=== PATIENT | male | born 1935 ===

== ENCOUNTER 2016-08-27 05:49 | Emergency (ER) | payer MEDICARE, OTHER ==
[2016-08-27 06:03] VITALS: BP 123/64; PULSE 64; RESP 16; TEMP 99; O2SAT 98
[2016-08-27] MEDS ORDERED: TDAP Vaccine 0.5 mL Syr IM ONE (06:05)
--- NOTE | 2016-08-27 06:29 | ED PDOC ---
HPI: Trauma/Fall - HPI Time Seen by Provider: 08/27/16 05:59 Chief Complaint (Nursing): Trauma Chief Complaint (Provider): Fall History Per: Patient History/Exam Limitations: clinical condition (Dementia) Injury Occurred (Timing): Just Before Arrival Location Of Injury: Anterior: Head (left side) Associated Symptoms: denies: LOC Additional History Per: Family () Additional Complaint(s): 81 year old male brought in by EMS presents to ED due to a witnessed fall and has a past medical history of a CVA with residual weakness, DM, dementia, and HTN. Fall was witnessed by , who is the main historian. states that patient was attempting to sit in bed when he missed and fell to his left side. Notes that the patient hit the left side of his forehead against the floor. (-) LOC. Patient denies all medical complaints. PCP: LENARD - Fall Fall:Prior To Injury: Slipped Past Medical History Reviewed: Historical Data, Nursing Documentation, Vital Signs Vital Signs: Last Vital Signs Temp 99.0 F 08/27/16 06:00 Pulse 64 08/27/16 06:00 Resp 16 08/27/16 06:00 BP 123/64 08/27/16 06:00 Pulse Ox 98 08/27/16 07:00 - Medical History PMH: Alzheimer's Disease, Arthritis, Asthma, CAD, CVA, Dementia, Depression (Pt on Paxil), Diabetes, HTN, Hypercholesterolemia, Peripheral Edema Denies: HIV, Chronic Kidney Disease - Surgical History Surgical History: Denies: No Surg Hx Other surgeries: Cateract surgery, shoulder surgery, prostate surgery - Family History Family History: States: No Known Family Hx - Living Arrangements Living Arrangements: With Family - Social History Current smoker - smoking cessation education provided: No Ex-Smoker (has not smoked in the last 12 months): Yes Alcohol: None Drugs: Denies - Home Medications Home Medications: Ambulatory Orders Medication Instructions Recorded Atorvastatin [Lipitor] 40 mg PO HS #0 tab 10/24/13 Clopidogrel [Plavix] 75 mg PO DAILY #0 tab 10/24/13 Fenofibrate [Tricor] 145 mg PO HS #0 tab 10/24/13 Metoprolol Tartrate [Lopressor] 25 mg PO Q12 #0 tab 10/24/13 PARoxetine [Paxil] 20 mg PO HS #0 tab 10/24/13 Pantoprazole [Protonix EC Tab] 40 mg PO DAILY #0 ect 10/24/13 Rivastigmine 4.6 mg/24 hr [Exelon 1 patch TD DAILY #0 patch 10/24/13 4.6 mg/24 hr Patch] amLODIPine [Norvasc] 10 mg PO DAILY #0 tab 10/24/13 metFORMIN [glucOPHAGE] 500 mg PO DAILY #0 tab 10/24/13 risperiDONE [RisperDAL Tab] 0.25 mg PO Q12@0900,2100 #0 tab 10/24/13 Acetaminophen [Tylenol] 650 mg PO QID PRN #0 tab 12/15/13 Clindamycin [Cleocin] 300 mg PO QID #21 cap 12/15/13 - Allergies Allergies/Adverse Reactions: Allergies Allergy/AdvReac Type Severity Reaction Status Date / Time Penicillins Allergy RASH Verified 09/01/15 12:17 Review of Systems ROS Statement: Except As Marked, All Systems Reviewed And Found Negative ( Patient denies all medical complaints) Musculoskeletal: Positive for: Other (Head abrasion) Neurological: Negative for: Other ((-) LOC) Physical Exam - Reviewed Nursing Documentation Reviewed: Yes Vital Signs Reviewed: Yes - Physical Exam Appears: Positive for: Non-toxic, No Acute Distress Head Exam: Positive for: NORMOCEPHALIC. Negative for: ATRAUMATIC (Abrasion to left side of forehead with mild ecchymosis above left eye) Skin: Positive for: Normal Color, Warm, Dry Eye Exam: Positive for: Normal appearance, EOMI, PERRL Neck: Positive for: Normal, Painless ROM, Supple Cardiovascular/Chest: Positive for: Regular Rate, Rhythm. Negative for: Murmur Respiratory: Positive for: Normal Breath Sounds. Negative for: Respiratory Distress Gastrointestinal/Abdominal: Positive for: Normal Exam, Soft. Negative for: Tenderness Back: Positive for: Normal Inspection Extremity: Positive for: Normal ROM. Negative for: Deformity Neurologic/Psych: Positive for: Alert, Oriented, Other (Residual, generalized weakness). Negative for: Motor/Sensory Deficits (no focal deficits) - ECG O2 Sat by Pulse Oximetry: 98 (RA) Pulse Ox Interpretation: Normal Medical Decision Making Medical Decision Makin Initial impression: head injury in setting of fall Initial plan: * CT HEAD * Accucheck 0649 CT FINDINGS Brain: Moderate atrophy. No intracranial hemorrhage. No mass. Multiple scattered foci of decreased attenuation within periventricular/subcortical white matter. Chronic lacunar infarcts within basal ganglia/deep white matter. No edema. Ventricles: No hydrocephalus. Bones/joints: No acute fracture. Degenerative changes of temporomandibular joints. Soft tissues: LEFT frontal soft tissue swelling. Vasculature: Atherosclerotic disease of intracranial arteries. Sinuses: No acute sinusitis. Mastoid air cells: No mastoid effusion. Orbits: Unremarkable as visualized. IMPRESSION: 1. No intracranial hemorrhage. 2. Nonspecific white matter changes. 3. Incidental/non-acute findings are described above. 0700 Patient is stable for discharge home with . Counseling has been provided and patient is in agreement. Return if symptoms persist or acutely worsen. Scribe Attestation: Documented by Agata Bess acting as a scribe for Roddy Edward MD. Scribe Attestation: All medical record entries made by the Scribe were at my direction and personally dictated by me. I have reviewed the chart and agree that the record accurately reflects my personal performance of the history, physical exam, medical decision making, and the department course for this patient. I have also personally directed, reviewed, and agree with the discharge instructions and disposition. Disposition - Clinical Impression Clinical Impression: Head injury - Patient ED Disposition Is Patient to be Admitted: No Counseled Patient/Family Regarding: Studies Performed, Diagnosis - Disposition Referrals: Isaac Benz MD [Primary Care Provider] - Disposition: Routine/Home Disposition Time: 07:00 Condition: STABLE Instructions: Head Injury (ED) Print Language: PORTUGUESE - POA Present On Arrival: None
--- NOTE | 2016-08-27 06:50 | CT ---
EXAM: CT Head Without Intravenous Contrast CLINICAL HISTORY: 81 years old, male; Injury or trauma; Fall; Initial encounter; Blunt trauma (contusions or hematomas); Additional info: Head injury TECHNIQUE: Axial computed tomography images of the head/brain without intravenous contrast. This CT exam was performed using one or more of the following dose reduction techniques: automated exposure control, adjustment of the mA and/or kV according to patient size, and/or use of iterative reconstruction technique. Coronal and sagittal reformatted images were created and reviewed. COMPARISON: CT - HEAD W/O CONTRAST 09/01/2015 1:57:57 PM FINDINGS: Brain: Moderate atrophy. No intracranial hemorrhage. No mass. Multiple scattered foci of decreased attenuation within periventricular/subcortical white matter. Chronic lacunar infarcts within basal ganglia/deep white matter. No edema. Ventricles: No hydrocephalus. Bones/joints: No acute fracture. Degenerative changes of temporomandibular joints. Soft tissues: LEFT frontal soft tissue swelling. Vasculature: Atherosclerotic disease of intracranial arteries. Sinuses: No acute sinusitis. Mastoid air cells: No mastoid effusion. Orbits: Unremarkable as visualized. IMPRESSION: 1. No intracranial hemorrhage. 2. Nonspecific white matter changes. 3. Incidental/non-acute findings are described above.
== END 2016-08-27 09:35 | disposition home or self-care (01) ==
LOC: H.ER 05:49
DX: S09.90XA Unspecified injury of head, initial encounter (principal); W19.XXXA Unspecified fall, initial encounter; Y92.003 Bedroom of unspecified non-institutional (private) residence as the place of occurrence of the external cause; E11.9 Type 2 diabetes mellitus without complications; E78.00 Pure hypercholesterolemia, unspecified; F02.80 Dementia in other diseases classified elsewhere, unspecified severity, without behavioral disturbance, psychotic disturbance, mood disturbance, and anxiety; F32.9 Major depressive disorder, single episode, unspecified; G30.9 Alzheimer's disease, unspecified; I10 Essential (primary) hypertension; I25.10 Atherosclerotic heart disease of native coronary artery without angina pectoris; Z79.84 Long term (current) use of oral hypoglycemic drugs; Z86.73 Personal history of transient ischemic attack (TIA), and cerebral infarction without residual deficits; Z88.0 Allergy status to penicillin

== ENCOUNTER 2016-11-30 11:15 | Inpatient (IN) | payer MEDICARE, OTHER ==
[2016-11-30 12:01] VITALS: BMI 30.6
--- NOTE | 2016-11-30 12:55 | ED PDOC ---
HPI: General Adult <AlizerobertAlejandro F - Last Filed: 11/30/16 13:54> History Per: Patient <Tiburcio Daniels - Last Filed: 11/30/16 17:11> Time Seen by Provider: 11/30/16 11:35 Chief Complaint (Nursing): Cough, Cold, Congestion Additional Complaint(s): Pt. presents to ED with at beside. States that for the past 2 days pt. has had cough productive of thick yellow sputum. States that pt. has also been c/o b /l chest pain that is present only with coughing and does not have pain at rest or while ambulating. Denies fever, hemoptysis, ELIZABETH, leg pain, leg swelling, palpitations. (Tiburcio Daniels) Past Medical History <AlizerobertAlejandro Matute - Last Filed: 11/30/16 13:54> Reviewed: Historical Data, Nursing Documentation, Vital Signs - Medical History PMH: Alzheimer's Disease, Arthritis, Asthma, CAD, CVA, Dementia, Depression (Pt on Paxil), Diabetes, HTN, Hypercholesterolemia, Peripheral Edema Denies: HIV, Chronic Kidney Disease - Family History Family History: States: No Known Family Hx <Tiburcio Daniels - Last Filed: 11/30/16 17:11> Vital Signs: Last Vital Signs Temp 97 F L 11/30/16 11:50 Pulse 60 11/30/16 13:57 Resp 18 11/30/16 11:50 BP 121/69 11/30/16 11:50 Pulse Ox 99 11/30/16 13:57 - Home Medications Home Medications: Ambulatory Orders Medication Instructions Recorded Atorvastatin [Lipitor] 40 mg PO HS #0 tab 10/24/13 Clopidogrel [Plavix] 75 mg PO DAILY #0 tab 10/24/13 Fenofibrate [Tricor] 145 mg PO HS #0 tab 10/24/13 Metoprolol Tartrate [Lopressor] 25 mg PO Q12 #0 tab 10/24/13 PARoxetine [Paxil] 20 mg PO HS #0 tab 10/24/13 Pantoprazole [Protonix EC Tab] 40 mg PO DAILY #0 ect 10/24/13 Rivastigmine 4.6 mg/24 hr [Exelon 1 patch TD DAILY #0 patch 10/24/13 4.6 mg/24 hr Patch] metFORMIN [glucOPHAGE] 500 mg PO DAILY #0 tab 10/24/13 risperiDONE [RisperDAL Tab] 0.25 mg PO Q12@0900,2100 #0 tab 10/24/13 Acetaminophen [Tylenol] 650 mg PO QID PRN #0 tab 12/15/13 Clindamycin [Cleocin] 300 mg PO QID #21 cap 12/15/13 amLODIPine [Norvasc] 5 mg PO DAILY 11/30/16 - Allergies Allergies/Adverse Reactions: Allergies Allergy/AdvReac Type Severity Reaction Status Date / Time Penicillins Allergy RASH Verified 09/01/15 12:17 Review of Systems ROS Statement: Except As Marked, All Systems Reviewed And Found Negative Respiratory: Positive for: Cough, Sputum (yellow) <Tiburcio Daniels E - Last Filed: 11/30/16 17:11> Physical Exam - Reviewed Nursing Documentation Reviewed: Yes Vital Signs Reviewed: Yes - Physical Exam Appears: Positive for: Well, Non-toxic, No Acute Distress Head Exam: Positive for: ATRAUMATIC, NORMAL INSPECTION, NORMOCEPHALIC Skin: Positive for: Normal Color, Warm. Negative for: Rash Eye Exam: Positive for: EOMI, Normal appearance, PERRL ENT: Positive for: Normal ENT Inspection Neck: Positive for: Normal, Painless ROM Cardiovascular/Chest: Positive for: Regular Rate, Rhythm Respiratory: Positive for: Rales (R mid-lung field). Negative for: Decreased Breath Sounds, Accessory Muscle Use, Stridor, Respiratory Distress, Plerual Rub Gastrointestinal/Abdominal: Positive for: Normal Exam, Bowel Sounds, Soft. Negative for: Tenderness Back: Positive for: Normal Inspection Extremity: Positive for: Normal ROM Neurologic/Psych: Positive for: Alert, Oriented <Tiburcio Daniels E - Last Filed: 11/30/16 17:11> - Laboratory Results Result Diagrams: 11/30/16 13:17 11/30/16 13:17 <Alejandro Lux F - Last Filed: 11/30/16 13:54> - Laboratory Results Result Diagrams: 11/30/16 13:17 11/30/16 13:17 - ECG ECG: Positive for: Interpreted By Me ECG Rhythm: Positive for: Sinus Rhythm. Negative for: ST/T Changes Rate: 60 O2 Sat by Pulse Oximetry: 99 - Radiology X-Ray: Interpreted by Me (CXR) <Tiburcio Daniels - Last Filed: 11/30/16 17:11> - Progress ED Course And Treament: Labs ordered. VBG ordered. CXR ordered. CXR: RLL infiltrate as read by PA and confirmed by radiologist. Levaquin 500mg IV ordered. Case d/w Dr. Lux and agrees that pt. requires inpatient treatment. Case d/w Dr. Martinez, hospitalist (pt.'s PMD is Dr. Benz), and arrangements made for admission. (Tiburcio Daniels) Disposition <Alejandro Lux - Last Filed: 11/30/16 13:54> - Patient ED Disposition Is Patient to be Admitted: Yes - Disposition Disposition Time: 14:15 <Tiburcio Daniels - Last Filed: 11/30/16 17:11> - Clinical Impression Clinical Impression: Pneumonia - Disposition Condition: STABLE Curb-65 Severity Score - CURB-65 Severity Score Confusion: Yes Bun >19mg/dl (>7mmol/L): No Respiratory Rate greater than/equal to 30: No Systolic BP <90 or Diastolic BP less than/equal 60mmHg: No Age >64: Yes Curb-65 Score: 2 Percentage 30-day mortality: 6.8% <Tiburcio Daniels - Last Filed: 11/30/16 17:11>
--- NOTE | 2016-11-30 13:06 | RAD ---
HISTORY: Cough COMPARISON: 10/21/2013 TECHNIQUE: Chest PA and lateral FINDINGS: LUNGS: Right lower lobe infiltrate PLEURA: No significant pleural effusion identified. No pneumothorax apparent. CARDIOVASCULAR: Cardiomegaly. No evidence of acute, significant cardiovascular disease. OSSEOUS STRUCTURES: No significant abnormalities. VISUALIZED UPPER ABDOMEN: Normal. OTHER FINDINGS: None. IMPRESSION: Infiltrate confined to the right lower lobe. Please note: No preliminary report/ innterpretation of this examination provided by emergency department personnel.
[2016-11-30 13:27] LABS: BASO # 0.1 K/uL (0.0-0.2); BASO % 0.8 % (0.0-2.0); EOS # 0.2 K/uL (0.0-0.7); EOS % 2.7 % (0.0-4.0); LYMPH # 1.6 K/uL (1.0-4.3); LYMPH % 17.2 % (20.0-40.0); MEAN CELL VOLUME 74.2 fl (80.0-94.0); MEAN CORPUSCULAR HEMOGLOBIN 24.2 pg (27.0-31.0); MEAN CORPUSCULAR HGB CONC 32.6 g/dL (33.0-37.0); MONO # 0.8 K/uL (0.0-0.8); MONO % 9.2 % (0.0-10.0); NEUT # 6.3 K/uL (1.8-7.0); NEUT % 70.1 % (50.0-75.0); RED CELL DISTRIBUTION WIDTH 17.4 % (11.5-14.5)
[2016-11-30 13:30] LABS: VENOUS BLOOD GAS BASE EXCESS 7.3 mmol/L (0.0-2.0); VENOUS BLOOD GAS PCO2 58 mmHg (40-60); VENOUS BLOOD PH 7.38 (7.32-7.43)
[2016-11-30 13:37] LABS: ALB/GLOB RATIO 0.9 (1.0-2.1); ALKALINE PHOSPHATASE 120 U/L (38-126); ALT/SGPT 14 U/L (21-72); AST/SGOT 15 U/L (17-59); BILIRUBIN,TOTAL 0.3 mg/dl (0.2-1.3); BLOOD UREA NITROGEN 14 mg/dl (9-20); CALCIUM 9.4 mg/dL (8.4-10.2); CARBON DIOXIDE 28 mmol/L (22-30); CHLORIDE 104 mmol/L (98-107); GFR AFRICAN-AMERICAN > 60; GLUCOSE,RANDOM 79 mg/dL (75-110); POTASSIUM 4.3 MMOL/L (3.6-5.0); SODIUM 145 mmol/l (132-148); TOTAL PROTEIN 7.2 G/DL (6.3-8.2)
[2016-11-30] MEDS ORDERED: levoFLOXacin 500 mg in D5W 500 MG/100 ML BAG IVPB STA (13:56)
[2016-11-30] MEDS ORDERED: levoFLOXacin 500 mg in D5W 500 MG/100 ML BAG IVPB ONE (14:20)
[2016-11-30] MEDS ORDERED: Sodium Chloride 3% for Inhalation 4 ML VIAL.NEB IH PRN (15:46)
[2016-11-30] MEDS ORDERED: guaiFENesin 200 mg/10 ml Syrup UD PO PRN (15:58)
[2016-11-30] MEDS ORDERED: Clindamycin 600 MG in Sodium Chloride 0.9% 100 ML IVPB SCH ×2 (16:00→16:30)
--- NOTE | 2016-11-30 16:10 | CP.PCM.HP ---
History of Present Illness - History of Present Illness History of Present Illness: CC: Cough This is a 81 year old male with a past medical history significant for CVA with residual left sided weakness, hypertension, hyperlipidemia, Type 2 Diabetes mellitus, Alzheimer's dementia, CAD, Depression, Athritis, who presents to the ED with the complaint of 2 days of productive cough with thick yellow sputum. He has pleuritic pain which is only present while coughing. He denies any symptoms of fever, chills, weakness, or fatigue. He has been having increased mucus production. The family relates that he has over the last 2 years had difficulty eating and is often coughing and choking on his food. In the ED, the patient had a chest X ray showing right lower lobe pneumonia. His vitals are stable and he is saturating oxygen well. He was given Levaquin. Given his age, with CURB-65 score of 2, he will be placed on observation overnight for IV antibiotics for aspiration pneumonia, and monitoring. Present on Admission - Present on Admission Any Indicators Present on Admission: No Review of Systems - Hematologic/Lymphatic Additional comments: REVIEW OF SYSTEMS: CONSTITUTIONAL: No weight loss, fever, chills, weakness or fatigue. HEENT: Eyes: No visual loss, blurred vision, double vision or yellow sclerae. Ears, Nose, Throat: No hearing loss, sneezing, congestion, runny nose or sore throat. SKIN: No rash or itching. CARDIOVASCULAR: No chest pain, chest pressure or chest discomfort. No palpitations or edema. RESPIRATORY: Admits to cough and congestion with increased sputum production. Denies SOB GASTROINTESTINAL: No anorexia, nausea, vomiting or diarrhea. No abdominal pain or blood. GENITOURINARY: no frequency, dysuria, cloudy urine NEUROLOGICAL: No headache, dizziness, syncope, paralysis, ataxia, numbness or tingling in the extremities. No change in bowel or bladder control. MUSCULOSKELETAL: No muscle, back pain, joint pain or stiffness. HEMATOLOGIC: No anemia, bleeding or bruising. LYMPHATICS: No enlarged nodes. No history of splenectomy. PSYCHIATRIC: No history of depression or anxiety. ENDOCRINOLOGIC: No reports of sweating, cold or heat intolerance. No polyuria or polydipsia. ALLERGIES: No history of asthma, hives, eczema or rhinitis. Past Patient History - Infectious Disease Hx of Infectious Diseases: None - Past Medical History & Family History Past Medical History?: Yes - Past Social History Smoking Status: Former Smoker - CARDIAC Hx Hypercholesterolemia: Yes Hx Hypertension: Yes Hx Peripheral Edema: Yes - PULMONARY Hx Asthma: Yes - NEUROLOGICAL Hx Alzheimer's Disease: Yes Hx Dementia: Yes - HEENT Hx HEENT Problems: No - RENAL Hx Chronic Kidney Disease: No - ENDOCRINE/METABOLIC Hx Diabetes Mellitus Type 2: Yes - HEMATOLOGICAL/ONCOLOGICAL Hx Human Immunodeficiency Virus (HIV): No - INTEGUMENTARY Hx Dermatological Problems: No - MUSCULOSKELETAL/RHEUMATOLOGICAL Hx Arthritis: Yes - GASTROINTESTINAL Hx Gastrointestinal Disorders: No - GENITOURINARY/GYNECOLOGICAL Hx Genitourinary Disorders: No Hx Prostate Problems: Yes - PSYCHIATRIC Hx Depression: Yes (Pt on Paxil) - SURGICAL HISTORY Hx Cataract Extraction: Yes (bilateral eyes) Hx Orthopedic Surgery: Yes (Right shoulder 10 years ago) Other/Comment: Prostate Surgery 2008, Gland sx behind right ear - ANESTHESIA Hx Anesthesia: Yes Hx Anesthesia Reactions: No Meds Allergies/Adverse Reactions: Allergies Allergy/AdvReac Type Severity Reaction Status Date / Time Penicillins Allergy RASH Verified 09/01/15 12:17 Physical Exam - Additional Findings Additional findings: PHYSICAL EXAMINATION: GENERAL: The patient is alert but demented. Appears comfortable. in no respiratory distress on room air. HEENT: Normocephalic, atraumatic. Extraocular movements intact. No sinus tenderness. Oropharynx clear. Mucous membranes are moist. no scleral icterus NECK: Supple without lymph node. CHEST: CTA bilaterally, mild bilateral wheezing, rales on the right, scattered rhonchi HEART: S1, S2. regular rate and rhythm ABDOMEN: Soft, nontender, nondistended No organomegaly. EXTREMITIES: No cyanosis, clubbing or edema. NEUROLOGIC: No focal deficit. No sensory deficit. PSYCHOSOCIAL: No signs of depression and is nonfocal. INTEGUMENT: Moist mucous membranes. Good skin turgor, intact Results - Vital Signs Recent Vital Signs: Last Vital Signs Temp 97 F L 11/30/16 11:50 Pulse 60 11/30/16 13:57 Resp 18 11/30/16 11:50 BP 121/69 11/30/16 11:50 Pulse Ox 99 11/30/16 13:57 - Labs Result Diagrams: 11/30/16 13:17 11/30/16 13:17 Labs: Laboratory Results - last 24 hr 11/30/16 11/30/16 11/30/16 01:18 13:15 13:17 WBC 9.0 RBC 4.85 Hgb 11.7 L Hct 36.0 MCV 74.2 L MCH 24.2 L MCHC 32.6 L RDW 17.4 H Plt Count 249 MPV 9.0 Neut % (Auto) 70.1 Lymph % (Auto) 17.2 L [place] % (Auto) 9.2 Eos % (Auto) 2.7 Baso % (Auto) 0.8 Neut # 6.3 Lymph # 1.6 [place] # 0.8 Eos # 0.2 Baso # 0.1 pO2 25 L VBG pH 7.38 VBG pCO2 58 VBG HCO3 29.2 VBG Total CO2 36.1 H VBG O2 Sat (Calc) 52.2 VBG Base Excess 7.3 H VBG Potassium 4.4 Sodium 141.0 Chloride 104.0 Glucose 81 Lactate 1.1 FiO2 21.0 Potassium Carbon Dioxide Anion Gap BUN Creatinine Est GFR ( Amer) Est GFR (Non-Af Amer) Random Glucose Calcium Total Bilirubin AST ALT Alkaline Phosphatase Troponin I Total Protein Albumin Globulin Albumin/Globulin Ratio Venous Blood Potassium 4.4 Influenza Typ A,B (EIA) Negative for flu a/b 11/30/16 13:17 WBC RBC Hgb Hct MCV MCH MCHC RDW Plt Count MPV Neut % (Auto) Lymph % (Auto) [place] % (Auto) Eos % (Auto) Baso % (Auto) Neut # Lymph # [place] # Eos # Baso # pO2 VBG pH VBG pCO2 VBG HCO3 VBG Total CO2 VBG O2 Sat (Calc) VBG Base Excess VBG Potassium Sodium 145 Chloride 104 Glucose Lactate FiO2 Potassium 4.3 Carbon Dioxide 28 Anion Gap 17 BUN 14 Creatinine 0.7 L Est GFR ( Amer) > 60 Est GFR (Non-Af Amer) > 60 Random Glucose 79 Calcium 9.4 Total Bilirubin 0.3 AST 15 L ALT 14 L D Alkaline Phosphatase 120 Troponin I < 0.0120 Total Protein 7.2 Albumin 3.5 Globulin 3.7 Albumin/Globulin Ratio 0.9 L Venous Blood Potassium Influenza Typ A,B (EIA) Assessment & Plan - Assessment and Plan (Free Text) Plan: ASSESSMENT - Right lower lobe pneumonia, hx of choking while swallowing food--> concern for aspiration pneumonia vs pneumonitis - Hx CAD - Type 2 DM - Hypertension - Hypercholesterolemia - Alzheimer's dementia with hx of - Hx CVA with residual left sided weakness PLAN - Observation on med/surg - Monitor vitals, respriatory status overnight - Start Clindamycin for aspiration pneumonia- patient is allergic to penicillins. Start lactobacillus to protect the gut vitaly - Robitussin PRN - Continue Norvasc and Lopressor - Continue Lipitor, Tricor for hypercholesterolemia - Continue Risperidone and Rivastigmine, along with Ativan 5 mg PO HS, for Alzheimer's disease with hx of - Protonix 40 mg po daily - DVT prophylaxis with SCDs as patient is at high risk for falls - Estimated LOS < 2 midnights
[2016-11-30] MEDS: Lactobacillus Acidophilus 500 MU Cap PO SCH (18:42)
[2016-12-01] MEDS: Albuterol-Ipratrop 3 mg / 0.5 (3 ml) UD INH SCH ×6 (00:08→19:28)
[2016-12-01] MEDS: Clindamycin 600 MG in Sodium Chloride 0.9% 100 ML IVPB SCH ×3 (00:55→16:35)
[2016-12-01 06:37] LABS: BASO % 0.3 % (0.0-2.0); EOS # 0.2 K/uL (0.0-0.7); EOS % 2.9 % (0.0-4.0); HEMATOCRIT 34.7 % (35.0-51.0); LYMPH # 1.4 K/uL (1.0-4.3); LYMPH % 17.5 % (20.0-40.0); MEAN CELL VOLUME 74.2 fl (80.0-94.0); MEAN CORPUSCULAR HEMOGLOBIN 23.8 pg (27.0-31.0); MEAN PLATELET VOLUME 9.1 fl (7.2-11.7); MONO # 0.8 K/uL (0.0-0.8); MONO % 9.6 % (0.0-10.0); NEUT # 5.7 K/uL (1.8-7.0); NEUT % 69.7 % (50.0-75.0); NRBC % 0.1 % (0.0-0.0); RED CELL DISTRIBUTION WIDTH 16.9 % (11.5-14.5); WHITE BLOOD COUNT 8.1 K/uL (4.8-10.8)
[2016-12-01 06:41] LABS: BLOOD UREA NITROGEN 16 mg/dl (9-20); CARBON DIOXIDE 31 mmol/L (22-30); CHLORIDE 105 mmol/L (98-107); GFR AFRICAN-AMERICAN > 60; GLUCOSE,RANDOM 105 mg/dL (75-110); POTASSIUM 4.2 MMOL/L (3.6-5.0); SODIUM 143 mmol/l (132-148)
[2016-12-01] MEDS ORDERED: Sodium Chloride 3% for Inhalation 4 ML VIAL.NEB IH PRN (08:39)
[2016-12-01] MEDS: Lactobacillus Acidophilus 500 MU Cap PO SCH ×2 (09:15→16:36)
[2016-12-01] MEDS: Pantoprazole 40 mg EC Tab PO SCH (09:16)
[2016-12-01] MEDS: levoFLOXacin 500 mg in D5W 500 MG/100 ML BAG IVPB SCH (10:41)
--- NOTE | 2016-12-01 12:47 | CARD ---
APPROVED REPORT EKG Measurement Heart [id number] <Conclusion> Normal sinus rhythm Left axis deviation Right bundle branch block Abnormal ECG
--- NOTE | 2016-12-01 12:56 | CP.PCM.PN ---
Subjective - Date & Time of Evaluation Date of Evaluation: 12/01/16 Time of Evaluation: 11:30 - Subjective Subjective: Pt is febrile still with cough, productive denies CP no SOB no abd pain Discussed diagnosis and treatment paln with pt and his who was at bedside Full Code Surrogate Decision maker - spouse Hannah Objective - Vital Signs/Intake and Output Vital Signs (last 24 hours): Temp Pulse Resp BP Pulse Ox 97.9 F 85 95 H 117/74 17 L 12/01/16 08:23 12/01/16 09:16 12/01/16 08:23 12/01/16 09:16 12/01/16 08:23 - Medications Medications: Current Medications Acetaminophen (Tylenol 325mg Tab) 650 mg PO QID PRN PRN Reason: pain Albuterol/Ipratropium (Duoneb 3 Mg/0.5 Mg (3 Ml) Ud) 3 ml INH RQ4 [facility] Last Admin: 12/01/16 11:03 Dose: 3 ml Amlodipine Besylate (Norvasc) 5 mg PO DAILY [facility] Last Admin: 12/01/16 09:18 Dose: 5 mg Atorvastatin Calcium (Lipitor) 40 mg PO HS [facility] Last Admin: 11/30/16 21:41 Dose: 40 mg Clopidogrel Bisulfate (Plavix) 75 mg PO DAILY [facility] Last Admin: 12/01/16 09:16 Dose: 75 mg Fenofibrate (Tricor) 145 mg PO HS [facility] Last Admin: 11/30/16 21:41 Dose: 145 mg Guaifenesin (Robitussin) 200 mg PO Q6 PRN PRN Reason: Cough Clindamycin Phosphate 600 mg/ (Sodium Chloride) 104 mls @ 104 mls/hr IVPB Q8H [facility] PRN Reason: Protocol Last Admin: 12/01/16 09:15 Dose: 104 mls/hr Levofloxacin/Dextrose (Levaquin 500mg) 500 mg in 100 mls @ 100 mls/hr IVPB DAILY [facility] Last Admin: 12/01/16 10:41 Dose: 100 mls/hr Lactobacillus Acidophilus (Bacid Acidophilus) 1 cap PO BID [facility] Last Admin: 11/30/16 18:42 Dose: 1 cap Lorazepam (Ativan) 0.5 mg PO HS [facility] Last Admin: 11/30/16 21:41 Dose: 0.5 mg Metformin HCl (Glucophage) 500 mg PO DAILY [facility] Last Admin: 12/01/16 09:16 Dose: 500 mg Metoprolol Tartrate (Lopressor) 25 mg PO Q12 [facility] Last Admin: 12/01/16 09:16 Dose: 25 mg Pantoprazole Sodium (Protonix Ec Tab) 40 mg PO DAILY [facility] Last Admin: 12/01/16 09:16 Dose: 40 mg Paroxetine HCl (Paxil) 20 mg PO HS [facility] Last Admin: 11/30/16 21:42 Dose: 20 mg Risperidone (Risperdal Tab) 0.25 mg PO Q12@0900,2100 [facility] Last Admin: 12/01/16 09:18 Dose: 0.25 mg Rivastigmine (Exelon 4.6 Mg/24 Hr Patch) 1 patch TD DAILY [facility] Last Admin: 12/01/16 09:16 Dose: 1 patch - Labs Labs: 12/01/16 05:15 12/01/16 05:15 - Constitutional Appears: No Acute Distress - Head Exam Head Exam: NORMAL INSPECTION, NORMOCEPHALIC - Eye Exam Eye Exam: EOMI, Normal appearance Pupil Exam: NORMAL ACCOMODATION - ENT Exam ENT Exam: Mucous Membranes Moist, Normal External Ear Exam - Neck Exam Neck Exam: Full ROM. absent: Meningismus - Respiratory Exam Respiratory Exam: Rales, NORMAL BREATHING PATTERN. absent: Wheezes, Respiratory Distress - Cardiovascular Exam Cardiovascular Exam: REGULAR RHYTHM, +S1, +S2 - GI/Abdominal Exam GI & Abdominal Exam: Soft, Normal Bowel Sounds. absent: Tenderness - Extremities Exam Extremities Exam: Normal Capillary Refill. absent: Calf Tenderness - Back Exam Back Exam: absent: CVA tenderness (L), CVA tenderness (R) - Neurological Exam Neurological Exam: Alert, Awake, Oriented x3 Neuro motor strength exam: Left Upper Extremity: 3, Right Upper Extremity: 5, Left Lower Extremity: 2/1, Right Lower Extremity: 5 - Psychiatric Exam Psychiatric exam: Normal Affect, Normal Mood - Skin Skin Exam: Dry, Normal Color, Warm Assessment and Plan - Assessment and Plan (Free Text) Assessment: 81 y/o gent with hx of DM, CAD, HTN, CVA with residual Left hemiparesis and Dementia ( prob vascular ) , was brought in by family bec of productive cought x 2 days. 1. Right lower lobe pneumonia hx of choking while swallowing food--> concern for aspiration pneumonia vs pneumonitis - cont IV Clinda , add IV levaquin - Blood c/s, Sputum c/s, Legionella, Mycoplasma - Pt is febrile - Influenza negtaive 2. Suspected Dysphagia - Speech for Swallow eval - Video swallow - change diet to [place] thickened 3. Hx CAD -cont Plavix, statin, Metoprolol, Tricor 4. Type 2 DM, controlled - accucheck with coverage - cont Metformin 5.Hypertension, controlled - cont Norvasc and Metoprolol 6.Hypercholesterolemia - cont Statin and TRicor 7. Alzheimer's dementia with hx of sundowning cont Exelon patch 8. Hx CVA with residual left sided weakness cont Statin, Plavix
[2016-12-01 18:35] LABS: RBC URINE 3 /hpf (0-3); URINE BILIRUBIN NEGATIVE (NEGATIVE); URINE BLOOD NEGATIVE (NEGATIVE); URINE CALCIUM OXALATE CRYSTALS RARE /hpf (<OCC); URINE COLOR YELLOW (YELLOW); URINE GLUCOSE (UA) NEG (Normal); URINE KETONE NEGATIVE (NEGATIVE); URINE LEUKOCYTE ESTERASE NEG Leu/uL (Negative); URINE PROTEIN NEGATIVE (NEGATIVE); WBC URINE 5 /hpf (0-5)
[2016-12-02] MEDS: Clindamycin 600 MG in Sodium Chloride 0.9% 100 ML IVPB SCH ×3 (00:05→17:13)
[2016-12-02] MEDS: Albuterol-Ipratrop 3 mg / 0.5 (3 ml) UD INH SCH ×6 (04:29→19:19)
[2016-12-02 07:45] VITALS: RESP 20; TEMP 98; O2SAT 95
[2016-12-02] MEDS ORDERED: Enoxaparin 40 mg Syringe SC SCH (09:00)
[2016-12-02] MEDS: Pantoprazole 40 mg EC Tab PO SCH (10:53)
[2016-12-02] MEDS: Lactobacillus Acidophilus 500 MU Cap PO SCH ×2 (10:55→17:11)
[2016-12-02] MEDS: levoFLOXacin 500 mg in D5W 500 MG/100 ML BAG IVPB SCH (10:56)
[2016-12-02] MEDS ORDERED: Barium Sulfate Susp 0.1% w/v, 0.1% w/w 450 mL Bottle PO ONE (14:21)
--- NOTE | 2016-12-02 15:45 | RAD ---
PROCEDURE: Modified barium swallow HISTORY: r/o aspiration COMPARISON: None TECHNIQUE: Standard protocol for this study/examination. FINDINGS: Study performed with varying degrees of consistency including thin and thick liquids comet. Solid material. Intermittent penetration without aspiration. Intermittent collection of ingested material into the piriform sinuses. IMPRESSION: No evidence of aspiration. Intermittent penetration noted throughout the study.
--- NOTE | 2016-12-02 16:09 | CP.PCM.DIS ---
Provider - Provider Date of Admission: 11/30/16 14:20 Attending physician: Clifford Martinez DO Primary care physician: Dr champagne Time Spent in preparation of Discharge (in minutes): 30 Diagnosis - Discharge Diagnosis (1) Pneumonia Status: Acute (2) CVA (cerebral vascular accident) Status: Chronic (3) Dementia Status: Chronic (4) Diabetes mellitus Status: Chronic (5) HTN (hypertension) Status: Chronic (6) DVT prophylaxis Status: Acute Hospital Course - Lab Results Lab Results: Micro Results 11/30/16 13:00 Blood-Venous Blood Culture - Preliminary NO GROWTH AFTER 48 HOURS 11/30/16 12:30 Blood-Venous Blood Culture - Preliminary NO GROWTH AFTER 48 HOURS Most Recent Lab Values WBC 8.1 K/uL (4.8-10.8) 12/01/16 05:15 RBC 4.68 Mil/uL (4.40-5.90) 12/01/16 05:15 Hgb 11.1 g/dL (12.0-18.0) L 12/01/16 05:15 Hct 34.7 % (35.0-51.0) L 12/01/16 05:15 MCV 74.2 fl (80.0-94.0) L 12/01/16 05:15 MCH 23.8 pg (27.0-31.0) L 12/01/16 05:15 MCHC 32.0 g/dL (33.0-37.0) L 12/01/16 05:15 RDW 16.9 % (11.5-14.5) H 12/01/16 05:15 Plt Count 221 K/uL (130-400) 12/01/16 05:15 MPV 9.1 fl (7.2-11.7) 12/01/16 05:15 Neut % (Auto) 69.7 % (50.0-75.0) 12/01/16 05:15 Lymph % (Auto) 17.5 % (20.0-40.0) L 12/01/16 05:15 Edmunds % (Auto) 9.6 % (0.0-10.0) 12/01/16 05:15 Eos % (Auto) 2.9 % (0.0-4.0) 12/01/16 05:15 Baso % (Auto) 0.3 % (0.0-2.0) 12/01/16 05:15 Neut # 5.7 K/uL (1.8-7.0) 12/01/16 05:15 Lymph # 1.4 K/uL (1.0-4.3) 12/01/16 05:15 Edmunds # 0.8 K/uL (0.0-0.8) 12/01/16 05:15 Eos # 0.2 K/uL (0.0-0.7) 12/01/16 05:15 Baso # 0.0 K/uL (0.0-0.2) 12/01/16 05:15 pO2 25 mm/Hg (30-55) L 11/30/16 01:18 VBG pH 7.38 (7.32-7.43) 11/30/16 01:18 VBG pCO2 58 mmHg (40-60) 11/30/16 01:18 VBG HCO3 29.2 mmol/L 11/30/16 01:18 VBG Total CO2 36.1 mmol/L (22-28) H 11/30/16 01:18 VBG O2 Sat (Calc) 52.2 % (40-65) 11/30/16 01:18 VBG Base Excess 7.3 mmol/L (0.0-2.0) H 11/30/16 01:18 VBG Potassium 4.4 mmol/L (3.6-5.2) 11/30/16 01:18 Sodium 141.0 mmol/L (132-148) 11/30/16 01:18 Chloride 104.0 mmol/L (98-107) 11/30/16 01:18 Glucose 81 mg/dL (75-110) 11/30/16 01:18 Lactate 1.1 mmol/L (0.7-2.1) 11/30/16 01:18 FiO2 21.0 % 11/30/16 01:18 Sodium 143 mmol/l (132-148) 12/01/16 05:15 Potassium 4.2 MMOL/L (3.6-5.0) 12/01/16 05:15 Chloride 105 mmol/L (98-107) 12/01/16 05:15 Carbon Dioxide 31 mmol/L (22-30) H 12/01/16 05:15 Anion Gap 11 (10-20) 12/01/16 05:15 BUN 16 mg/dl (9-20) 12/01/16 05:15 Creatinine 0.8 mg/dL (0.8-1.5) 12/01/16 05:15 Est GFR ( Amer) > 60 12/01/16 05:15 Est GFR (Non-Af Amer) > 60 12/01/16 05:15 POC Glucose (mg/dL) 107 mg/dL (65-110) 12/02/16 11:17 Random Glucose 105 mg/dL (75-110) 12/01/16 05:15 Calcium 9.0 mg/dL (8.4-10.2) 12/01/16 05:15 Total Bilirubin 0.3 mg/dl (0.2-1.3) 11/30/16 13:17 AST 15 U/L (17-59) L 11/30/16 13:17 ALT 14 U/L (21-72) L D 11/30/16 13:17 Alkaline Phosphatase 120 U/L (38-126) 11/30/16 13:17 Troponin I < 0.0120 ng/mL (0.00-0.120) 11/30/16 13:17 Total Protein 7.2 G/DL (6.3-8.2) 11/30/16 13:17 Albumin 3.5 g/dL (3.5-5.0) 11/30/16 13:17 Globulin 3.7 gm/dL (2.2-3.9) 11/30/16 13:17 Albumin/Globulin Ratio 0.9 (1.0-2.1) L 11/30/16 13:17 Venous Blood Potassium 4.4 mmol/L (3.6-5.2) 11/30/16 01:18 Urine Color Yellow (YELLOW) 12/01/16 18:17 Urine Clarity Slighty-cloudy (Clear) 12/01/16 18:17 Urine pH 6.0 (5.0-8.0) 12/01/16 18:17 Ur Specific [place] 1.020 (1.003-1.030) 12/01/16 18:17 Urine Protein Negative mg/dL (NEGATIVE) 12/01/16 18:17 Urine Glucose (UA) Neg mg/dL (Normal) 12/01/16 18:17 Urine Ketones Negative mg/dL (NEGATIVE) 12/01/16 18:17 Urine Blood Negative (NEGATIVE) 12/01/16 18:17 Urine Nitrate Negative (NEGATIVE) 12/01/16 18:17 Urine Bilirubin Negative (NEGATIVE) 12/01/16 18:17 Urine Urobilinogen 2.0 mg/dL (0.2-1.0) 12/01/16 18:17 Ur Leukocyte Esterase Neg Romana/uL (Negative) 12/01/16 18:17 Urine RBC (Auto) 3 /hpf (0-3) 12/01/16 18:17 Urine Microscopic WBC 5 /hpf (0-5) 12/01/16 18:17 Ur Squamous Epith Cells 1 /hpf (0-5) 12/01/16 18:17 Calcium Oxalate Crystal Rare /hpf (<OCC) 12/01/16 18:17 Influenza Typ A,B (EIA) Negative for flu a/b (NEGATIVE) 11/30/16 13:15 Ur L.pneumophila Ag Negative (NEGATIVE) 12/01/16 18:17 - Hospital Course Hospital Course: 81 y/o gent with hx of DM, CAD, HTN, CVA with residual Left hemiparesis and Dementia ( prob vascular ) , was brought in by family bec of fever and productive cought x 2 days. 1. Right lower lobe pneumonia , bacterial hx of choking while swallowing food--> concern for aspiration pneumonia vs pneumonitis - cont IV Clinda and IV levaquin ( allergic to PCN) - Blood c/s: negative so far , Sputum c/s pending Legionella: negative , Mycoplasma: pending - now afebrile - Influenza negative - d/c to TCU for 4 more days of IV abx 2. Suspected Dysphagia - Speech for Swallow eval - Video swallow: neg aspiration - change diet to [place] thickened 3. Hx CAD -cont Plavix, statin, Metoprolol, Tricor 4. Type 2 DM, controlled - accucheck with coverage - cont Metformin 5.Hypertension, controlled - cont Norvasc and Metoprolol 6.Hypercholesterolemia - cont Statin and TRicor 7. Alzheimer's dementia with hx of cont Exelon patch on Xanax at 3 pm and at bedtime 8. Hx CVA with residual left sided weakness cont Statin, Plavix DVT proph : Lovenox Discharge Exam - Head Exam Head Exam: NORMAL INSPECTION, NORMOCEPHALIC - Eye Exam Eye Exam: EOMI, Normal appearance Pupil Exam: NORMAL ACCOMODATION - ENT Exam ENT Exam: Mucous Membranes Moist, Normal External Ear Exam - Neck Exam Neck exam: Full Rom - Respiratory Exam Respiratory Exam: Rales, NORMAL BREATHING PATTERN. absent: Respiratory Distress - Cardiovascular Exam Cardiovascular Exam: REGULAR RHYTHM, +S1, +S2 - GI/Abdominal Exam GI & Abdominal Exam: Normal Bowel Sounds, Soft. absent: Tenderness - Extremities Exam Extremities exam: normal capillary refill, pedal pulses present Additional comments: no calf tenderness - Back Exam Back exam: absent: CVA tenderness (L), CVA tenderness (R), paraspinal tenderness - Neurological Exam Neurological exam: Alert Additional comments: oriented to person and place + dysarthria Left hemiparesis - Psychiatric Exam Psychiatric exam: Normal Affect, Normal Mood - Skin Skin Exam: Dry, Normal Color, Warm Discharge Plan - Discharge Medications Prescriptions: Clindamycin [Cleocin] 600 mg IVPB Q8 4 Days vial levoFLOXacin 500 mg in D5W [Levaquin 500MG] 500 mg IVPB DAILY 4 Days bag - Follow Up Plan Condition: GOOD Disposition: TRANSF TO SNF Additional Instructions: d/c pt to TCU
[2016-12-02 16:52] VITALS: BP 117/66; PULSE 82
== END 2016-12-02 22:18 | DRG 194 ==
LOC: H.ER 11:15 → H.ERHOLD 14:20 → H.MEDSURG1 18:15
PROVIDERS: ADMIT Internal Medicine; ATTEND Internal Medicine
DX: J15.9 Unspecified bacterial pneumonia (principal); I69.354 Hemiplegia and hemiparesis following cerebral infarction affecting left non-dominant side; G30.9 Alzheimer's disease, unspecified; F05 Delirium due to known physiological condition; F02.80 Dementia in other diseases classified elsewhere, unspecified severity, without behavioral disturbance, psychotic disturbance, mood disturbance, and anxiety; E11.9 Type 2 diabetes mellitus without complications; I10 Essential (primary) hypertension; I25.10 Atherosclerotic heart disease of native coronary artery without angina pectoris; E78.5 Hyperlipidemia, unspecified; J45.909 Unspecified asthma, uncomplicated; M19.90 Unspecified osteoarthritis, unspecified site; Z88.0 Allergy status to penicillin; Z87.891 Personal history of nicotine dependence; Z79.02 Long term (current) use of antithrombotics/antiplatelets

== ENCOUNTER 2016-12-02 16:08 | Inpatient (IN) | payer MEDICARE, OTHER ==
[2016-12-02 22:41] VITALS: BMI 28.6
[2016-12-02] MEDS ORDERED: guaiFENesin 200 mg/10 ml Syrup UD PO PRN (23:05)
[2016-12-02] MEDS: Albuterol-Ipratrop 3 mg / 0.5 (3 ml) UD INH SCH (23:56)
[2016-12-03] MEDS ORDERED: Clindamycin 150 mg/mL Inj IVPB SCH (01:00)
[2016-12-03] MEDS: Clindamycin 600 MG in Sodium Chloride 0.9% 100 ML IVPB SCH ×3 (02:04→16:46)
[2016-12-03] MEDS: Albuterol-Ipratrop 3 mg / 0.5 (3 ml) UD INH SCH ×5 (04:15→20:25)
[2016-12-03] MEDS: Insulin Lispro (humaLOG) 100 Units/ml Inj SC SCH ×4 (06:35→21:35)
[2016-12-03] MEDS: Lactobacillus Acidophilus 500 MU Cap PO SCH ×2 (08:12→16:42)
[2016-12-03] MEDS: Pantoprazole 40 mg EC Tab PO SCH (08:14)
[2016-12-03] MEDS: Enoxaparin 40 mg Syringe SC SCH (08:18)
[2016-12-03] MEDS: levoFLOXacin 500 mg in D5W 500 MG/100 ML BAG IVPB SCH (09:37)
--- NOTE | 2016-12-03 11:24 | CP.PCM.HP ---
History of Present Illness - History of Present Illness History of Present Illness: 81 yo male with history of DM2, CAD, HTN, Dementia and previous CVA with residual left hemiparesis brought in because of fever and cough productive with yellow sputum. CXray showed RLL Pneumonia. Patient was admitted and started on IV Levaquin and Clindamycin. He was transferred after 3 days to TCU for continuation of care and completion of IV antibiotics Present on Admission - Present on Admission Any Indicators Present on Admission: No History of DVT/PE: No History of Uncontrolled Diabetes: No Urinary Catheter: No Decubitus Ulcer Present: No Review of Systems - Review of Systems All systems: reviewed and no additional remarkable complaints except (aside from those mentioned above, 12 point system review were negative by me) Past Patient History - Infectious Disease Hx of Infectious Diseases: None - Tetanus Immunizations Tetanus Immunization: Unknown - Past Medical History & Family History Past Medical History?: Yes - Past Social History Smoking Status: Former Smoker Alcohol: None Drugs: Denies Home Situation {Lives}: With Family - CARDIAC Hx Hypercholesterolemia: Yes Hx Hypertension: Yes Hx Peripheral Edema: Yes - PULMONARY Hx Asthma: Yes Hx Pneumonia: Yes - NEUROLOGICAL Hx Alzheimer's Disease: Yes HX Cerebrovascular Accident: Yes Hx Dementia: Yes - HEENT Hx HEENT Problems: No - RENAL Hx Chronic Kidney Disease: No - ENDOCRINE/METABOLIC Hx Diabetes Mellitus Type 2: Yes - HEMATOLOGICAL/ONCOLOGICAL Hx Human Immunodeficiency Virus (HIV): No - INTEGUMENTARY Hx Dermatological Problems: No - MUSCULOSKELETAL/RHEUMATOLOGICAL Hx Arthritis: Yes Hx Falls: Yes - GASTROINTESTINAL Hx Gastrointestinal Disorders: No - GENITOURINARY/GYNECOLOGICAL Hx Incontinence: Yes Hx Prostate Problems: Yes - PSYCHIATRIC Hx Depression: Yes Hx Substance Use: No - SURGICAL HISTORY Hx Cataract Extraction: Yes (bilateral eyes) Hx Orthopedic Surgery: Yes (Right shoulder 10 years ago) Other/Comment: Prostate Surgery 2009, Gland surgery behind right ear - ANESTHESIA Hx Anesthesia: Yes Hx Anesthesia Reactions: No Meds Allergies/Adverse Reactions: Allergies Allergy/AdvReac Type Severity Reaction Status Date / Time Penicillins Allergy RASH Verified 09/01/15 12:17 Physical Exam - Constitutional Appears: No Acute Distress - Head Exam Head Exam: ATRAUMATIC - Eye Exam Eye Exam: absent: Scleral icterus - ENT Exam ENT Exam: Mucous Membranes Moist - Neck Exam Neck exam: Negative for: Meningismus - Respiratory Exam Respiratory Exam: Rhonchi. absent: Respiratory Distress - Cardiovascular Exam Cardiovascular Exam: REGULAR RHYTHM, +S1, +S2 - GI/Abdominal Exam GI & Abdominal Exam: Soft. absent: Tenderness - Rectal Exam Rectal Exam: Deferred - Extremities Exam Extremities exam: Negative for: calf tenderness - Neurological Exam Neurological exam: Alert - Psychiatric Exam Psychiatric exam: Normal Affect - Skin Skin Exam: Dry, Intact Results - Vital Signs Recent Vital Signs: Last Vital Signs Temp 97.3 F L 12/03/16 08:34 Pulse 75 12/03/16 08:34 Resp 20 12/03/16 08:34 BP 136/92 H 12/03/16 08:34 Pulse Ox 91 L 12/03/16 08:34 - Labs Labs: Laboratory Results - last 24 hr 12/03/16 12/03/16 05:41 10:54 POC Glucose (mg/dL) 120 H 133 H Assessment & Plan - Assessment and Plan (Free Text) Assessment: 81 yo male with history of DM2, CAD, HTN, Dementia and previous CVA with residual left hemiparesis brought in because of fever and cough productive with yellow sputum. CXray showed RLL Pneumonia. Patient was admitted and started on IV Levaquin and Clindamycin. He was transferred after 3 days to TCU for continuation of care and completion of IV antibiotics 1. Right lower lobe pneumonia, bacterial rule out aspiration pneumonia continue IV Clindamycin and Levaquin for another 4 days (total of 7 days) Blood c/s: negative so far Sputum c/s: pending Legionella: negative Mycoplasma: pending afebrile 2. Suspected Dysphagia for Swallow eval and management Video swallow: neg aspiration 3. CAD continue Plavix, statin, Metoprolol and Tricor asymptomatic 4. Type 2 DM, controlled BS controlled accucheck ACHS with coverage continue Metformin 500mg PO daily 5. Hypertension BP controlled continue Norvasc and Metoprolol 6. Hypercholesterolemia continue Statin and Tricor 7. Alzheimer's dementia continue Exelon patch on Xanax at 3 pm and at bedtime 8. History of CVA with residual left sided weakness continue Statin, Plavix
[2016-12-03 15:37] LABS: ABG ALLEN TEST YES; ARTERIAL BLOOD GAS HCO3 29.7 mmol/L (21-28); ARTERIAL BLOOD GAS O2 CAPACITY 15.8 mL/dL (16-24); ARTERIAL BLOOD GAS O2 CONTENT 15.3 ML/dL (15-23); ARTERIAL BLOOD GAS PH 7.47 (7.35-7.45); ARTERIAL BLOOD GAS PO2 61 mm/Hg (80-100); ARTERIAL BLOOD HGB O2 SAT 91.4 % (95.0-98.0); CARBOXYHEMOGLOBIN 3.4 % (0.5-1.5); METHEMOGLOBIN 2.2 % (0.0-3.0)
[2016-12-04] MEDS: Albuterol-Ipratrop 3 mg / 0.5 (3 ml) UD INH SCH ×7 (00:04→23:54)
[2016-12-04] MEDS: Clindamycin 600 MG in Sodium Chloride 0.9% 100 ML IVPB SCH ×4 (03:51→20:27)
[2016-12-04] MEDS: Insulin Lispro (humaLOG) 100 Units/ml Inj SC SCH ×4 (09:27→22:23)
[2016-12-04] MEDS: Pantoprazole 40 mg EC Tab PO SCH (09:31)
[2016-12-04] MEDS: Enoxaparin 40 mg Syringe SC SCH (09:31)
[2016-12-04] MEDS: levoFLOXacin 500 mg in D5W 500 MG/100 ML BAG IVPB SCH ×2 (10:35→17:03)
[2016-12-04] MEDS: Lactobacillus Acidophilus 500 MU Cap PO SCH ×2 (10:38→17:02)
[2016-12-05] MEDS: Clindamycin 600 MG in Sodium Chloride 0.9% 100 ML IVPB SCH ×3 (04:09→21:08)
[2016-12-05] MEDS: Albuterol-Ipratrop 3 mg / 0.5 (3 ml) UD INH SCH ×5 (04:39→19:43)
[2016-12-05] MEDS: Lactobacillus Acidophilus 500 MU Cap PO SCH ×2 (08:19→17:05)
[2016-12-05] MEDS: Pantoprazole 40 mg EC Tab PO SCH (08:21)
[2016-12-05] MEDS: Enoxaparin 40 mg Syringe SC SCH (08:24)
[2016-12-05] MEDS: Insulin Lispro (humaLOG) 100 Units/ml Inj SC SCH ×3 (08:25→17:06)
[2016-12-05] MEDS: levoFLOXacin 500 mg in D5W 500 MG/100 ML BAG IVPB SCH (17:07)
[2016-12-06] MEDS: Insulin Lispro (humaLOG) 100 Units/ml Inj SC SCH ×5 (00:20→22:39)
[2016-12-06] MEDS: Albuterol-Ipratrop 3 mg / 0.5 (3 ml) UD INH SCH ×6 (00:54→19:25)
[2016-12-06] MEDS: Clindamycin 600 MG in Sodium Chloride 0.9% 100 ML IVPB SCH ×3 (06:42→20:19)
[2016-12-06] MEDS: Pantoprazole 40 mg EC Tab PO SCH (08:19)
[2016-12-06] MEDS: Enoxaparin 40 mg Syringe SC SCH (08:20)
[2016-12-06] MEDS: Lactobacillus Acidophilus 500 MU Cap PO SCH ×2 (12:24→16:25)
[2016-12-06] MEDS: levoFLOXacin 500 mg in D5W 500 MG/100 ML BAG IVPB SCH (16:25)
[2016-12-06 16:35] VITALS: RESP 20
--- NOTE | 2016-12-06 19:24 | CP.PCM.CON ---
History of Present Illness - History of Present Illness History of Present Illness: consult called to see pt on inpt rehab.. reported hx of irritability which has reportedly subsided. pt admitted for pneumonia and is being treated by medical team. pt is receiving risperdal 0.25mg po bid. pt. with reported hx of dementia with behavioral disturbances. Assessment is difficult as it appears pt does not have dental plates-speech is garbled, mouth possibly drooping left side staff deny hx of cva. pt speaks citizen of [place]. staff report pt appears somnolent during day.pt requires total care and requires total care-pt is receiving aspiration precautions. Review of Systems - EENT Additional comments: missing dental prostesis-speech is garbled some words audible - Respiratory Additional comments: being treated for pneumonia - Musculoskeletal Additional comments: left side although moves appears less than right side - Neurological Neurological: Behavioral Changes, Memory Loss - Psychiatric Psychiatric: Behavioral Changes, Memory Loss Additional comments: day time somnolence Past Patient History - Infectious Disease Hx of Infectious Diseases: None - Tetanus Immunizations Tetanus Immunization: Unknown - Past Medical History & Family History Past Medical History?: Yes - Past Social History Smoking Status: Former Smoker Alcohol: None Drugs: Denies Home Situation {Lives}: With Family - CARDIAC Hx Hypercholesterolemia: Yes Hx Hypertension: Yes - PULMONARY Hx Pneumonia: Yes - NEUROLOGICAL HX Cerebrovascular Accident: Yes Hx Dementia: Yes - HEENT Hx HEENT Problems: No - RENAL Hx Chronic Kidney Disease: No - ENDOCRINE/METABOLIC Hx Diabetes Mellitus Type 2: Yes - HEMATOLOGICAL/ONCOLOGICAL Hx Human Immunodeficiency Virus (HIV): No - INTEGUMENTARY Hx Dermatological Problems: No - MUSCULOSKELETAL/RHEUMATOLOGICAL Hx Arthritis: Yes - GASTROINTESTINAL Hx Gastrointestinal Disorders: No - GENITOURINARY/GYNECOLOGICAL Hx Incontinence: Yes Hx Prostate Problems: Yes - PSYCHIATRIC Hx Depression: Yes Hx Substance Use: No - SURGICAL HISTORY Hx Cataract Extraction: Yes (bilateral eyes) Hx Orthopedic Surgery: Yes (Right shoulder 10 years ago) Other/Comment: Prostate Surgery 2009, Gland surgery behind right ear - ANESTHESIA Hx Anesthesia: Yes Hx Anesthesia Reactions: No Meds Allergies/Adverse Reactions: Allergies Allergy/AdvReac Type Severity Reaction Status Date / Time Penicillins Allergy RASH Verified 09/01/15 12:17 - Medications Medications: Current Medications Acetaminophen (Tylenol 325mg Tab) 650 mg PO QID PRN PRN Reason: Pain, moderate (4-7) Last Admin: 12/04/16 14:58 Dose: 650 mg Albuterol/Ipratropium (Duoneb 3 Mg/0.5 Mg (3 Ml) Ud) 3 ml INH RQ4 [facility] Last Admin: 12/06/16 15:21 Dose: 3 ml Amlodipine Besylate (Norvasc) 5 mg PO DAILY [facility] Last Admin: 12/06/16 08:19 Dose: 5 mg Atorvastatin Calcium (Lipitor) 40 mg PO HS [facility] Last Admin: 12/05/16 21:10 Dose: 40 mg Clopidogrel Bisulfate (Plavix) 75 mg PO DAILY [facility] Last Admin: 12/06/16 08:19 Dose: 75 mg Docusate Sodium (Colace) 100 mg PO BID [facility] Last Admin: 12/06/16 16:25 Dose: 100 mg Enoxaparin Sodium (Lovenox) 40 mg SC DAILY [facility] PRN Reason: Protocol Last Admin: 12/06/16 08:20 Dose: 40 mg Fenofibrate (Tricor) 145 mg PO HS [facility] Last Admin: 12/05/16 21:11 Dose: 145 mg Guaifenesin (Robitussin) 200 mg PO Q6 PRN PRN Reason: Cough Clindamycin Phosphate 600 mg/ (Sodium Chloride) 104 mls @ 104 mls/hr IVPB Q8@ 0500,1300,2100 [facility] Last Admin: 12/06/16 12:24 Dose: 104 mls/hr Levofloxacin/Dextrose (Levaquin 500mg) 500 mg in 100 mls @ 100 mls/hr IVPB DAILY@1700 [facility] Last Admin: 12/06/16 16:25 Dose: 100 mls/hr Insulin Human Lispro (Humalog) 0 units SC ACHS [facility] PRN Reason: Protocol Last Admin: 12/06/16 16:27 Dose: Not Given Lactobacillus Acidophilus (Bacid Acidophilus) 1 cap PO BID [facility] Last Admin: 12/06/16 16:25 Dose: 1 cap Lactulose (Enulose) 20 gm PO DAILY PRN PRN Reason: Constipation Lorazepam (Ativan) 0.5 mg PO HS PRN PRN Reason: Insomnia Metformin HCl (Glucophage) 500 mg PO DAILY [facility] Last Admin: 12/06/16 08:19 Dose: 500 mg Metoprolol Tartrate (Lopressor) 25 mg PO Q12 [facility] Last Admin: 12/06/16 08:19 Dose: 25 mg Pantoprazole Sodium (Protonix Ec Tab) 40 mg PO DAILY [facility] Last Admin: 12/06/16 08:19 Dose: 40 mg Paroxetine HCl (Paxil) 20 mg PO HS [facility] Last Admin: 12/05/16 21:09 Dose: 20 mg Risperidone (Risperdal Tab) 0.25 mg PO Q12@0900,2100 [facility] Last Admin: 12/06/16 08:20 Dose: 0.25 mg Rivastigmine (Exelon 4.6 Mg/24 Hr Patch) 1 patch TD DAILY [facility] Last Admin: 12/06/16 08:19 Dose: 1 patch Physical Exam - Constitutional Appears: Chronically Ill - Eye Exam Additional comments: pt appears somnolent requiring redirection to open eyes when occurs is only for short periods of time - Neurological Exam Additional comments: follows some simple commands, right side appears stronger than left. - Psychiatric Exam Additional comments: pt is alert x person, pt. extends right vs left hand when prompted, admits is of pal[place] decent, previously worked as [employer], remainder of MSE was difficult to completes due to garbling of speech and lack of dental plates being in place-not at bedside. Results - Vital Signs Recent Vital Signs: Last Vital Signs Temp 98.2 F 12/06/16 16:34 Pulse 83 12/06/16 16:34 Resp 20 12/06/16 16:34 BP 127/80 12/06/16 16:34 Pulse Ox 91 L 12/06/16 16:34 - Labs Labs: Laboratory Results - last 24 hr 12/05/16 12/06/16 12/06/16 20:44 05:54 10:38 POC Glucose (mg/dL) 128 H 125 H 123 H 12/06/16 16:22 POC Glucose (mg/dL) 105 - Impressions Impression: pt is 81 year old citizen of [place] speaking male, called for consult for reported behavioral changes which are resolving, pt's speech is garbled and appears tired (cannot keep eyes open), follows some simple commands, right side stronger to left, is difficulty to complete MRE 2nd speech, has hx. of depression and behavioral changes. pt is currently receiving paroxetine and risperdal 0.25mg po bid. pt does speak of concerns about changes in health and function. reports feeling sad, admits is having trouble with memory. Assessment & Plan (1) Depression Status: Chronic Priority: Medium Onset Date: Unknown (2) Depression Status: Acute (3) Dementia with behavioral disturbance Status: Chronic Priority: Medium - Assessment and Plan (Free Text) Assessment: pt should be reassessed when dental prosthesis are available to attempt completion of MRE. Recommend consult with Dr. Moriah Suarez/psychologist for dementia screening. Pt appears to be sedated and given pt's hx of dementia would recommend decreasing daytime dose of risperdal to 0.125mg and continue 0.25mg po pm-on going assessment. Pt. is reported to have increase symptoms in PM. Continue paroxetine. Please reconsult psychiatry when dental plates are available. Nursing staff report that pt is at baseline neurological status (e.g. possible drooping left side of mouth and right sided strength appearing stronger than left. Nursing staff report that pt may benefit from pureed diet as appears to cough with current diet form. thank you for allowing us to participate in pt's care Perry Lewis, PhDc, PROCESS SAFETY MANAGER
[2016-12-07] MEDS: Albuterol-Ipratrop 3 mg / 0.5 (3 ml) UD INH SCH ×6 (00:58→19:16)
[2016-12-07] MEDS: Clindamycin 600 MG in Sodium Chloride 0.9% 100 ML IVPB SCH ×3 (05:14→21:00)
[2016-12-07 05:55] LABS: HEMATOCRIT 39.5 % (35.0-51.0); MEAN CELL VOLUME 73.8 fl (80.0-94.0); MEAN CORPUSCULAR HEMOGLOBIN 23.6 pg (27.0-31.0); RED CELL DISTRIBUTION WIDTH 17.6 % (11.5-14.5); WHITE BLOOD COUNT 10.7 K/uL (4.8-10.8)
[2016-12-07 06:07] LABS: BLOOD UREA NITROGEN 24 mg/dl (9-20); CARBON DIOXIDE 28 mmol/L (22-30); CHLORIDE 104 mmol/L (98-107); GFR AFRICAN-AMERICAN > 60; GLUCOSE,RANDOM 113 mg/dL (75-110); POTASSIUM 3.9 MMOL/L (3.6-5.0); SODIUM 142 mmol/l (132-148)
[2016-12-07] MEDS: Insulin Lispro (humaLOG) 100 Units/ml Inj SC SCH ×4 (07:46→22:22)
[2016-12-07] MEDS: Lactobacillus Acidophilus 500 MU Cap PO SCH ×2 (08:03→16:51)
[2016-12-07] MEDS: Enoxaparin 40 mg Syringe SC SCH (08:04)
[2016-12-07] MEDS: Pantoprazole 40 mg EC Tab PO SCH (08:04)
[2016-12-07] MEDS: levoFLOXacin 500 mg in D5W 500 MG/100 ML BAG IVPB SCH (16:52)
[2016-12-08] MEDS: Albuterol-Ipratrop 3 mg / 0.5 (3 ml) UD INH SCH ×6 (00:29→19:43)
[2016-12-08] MEDS: Clindamycin 600 MG in Sodium Chloride 0.9% 100 ML IVPB SCH ×3 (04:51→21:35)
[2016-12-08] MEDS: Insulin Lispro (humaLOG) 100 Units/ml Inj SC SCH ×4 (06:36→21:37)
[2016-12-08] MEDS: Lactobacillus Acidophilus 500 MU Cap PO SCH ×2 (09:00→16:54)
[2016-12-08] MEDS: Enoxaparin 40 mg Syringe SC SCH (09:01)
[2016-12-08] MEDS: Pantoprazole 40 mg EC Tab PO SCH (09:02)
--- NOTE | 2016-12-08 13:44 | CP.PCM.PN ---
Subjective - Date & Time of Evaluation Date of Evaluation: 12/08/16 Time of Evaluation: 10:30 - Subjective Subjective: Pt seen and examined. Denied any complaint. Objective - Vital Signs/Intake and Output Vital Signs (last 24 hours): Temp Pulse Resp BP Pulse Ox 98.2 F 88 20 143/71 97 12/08/16 08:07 12/08/16 09:01 12/08/16 08:07 12/08/16 09:01 12/08/16 08:07 - Medications Medications: Current Medications Acetaminophen (Tylenol 325mg Tab) 650 mg PO QID PRN PRN Reason: Pain, moderate (4-7) Last Admin: 12/04/16 14:58 Dose: 650 mg Albuterol/Ipratropium (Duoneb 3 Mg/0.5 Mg (3 Ml) Ud) 3 ml INH RQ4 [facility] Last Admin: 12/08/16 11:25 Dose: 3 ml Amlodipine Besylate (Norvasc) 5 mg PO DAILY [facility] Last Admin: 12/08/16 09:01 Dose: 5 mg Atorvastatin Calcium (Lipitor) 40 mg PO HS [facility] Last Admin: 12/07/16 21:00 Dose: 40 mg Clopidogrel Bisulfate (Plavix) 75 mg PO DAILY [facility] Last Admin: 12/08/16 09:02 Dose: 75 mg Docusate Sodium (Colace) 100 mg PO BID [facility] Last Admin: 12/08/16 09:00 Dose: 100 mg Enoxaparin Sodium (Lovenox) 40 mg SC DAILY [facility] PRN Reason: Protocol Last Admin: 12/08/16 09:01 Dose: 40 mg Fenofibrate (Tricor) 145 mg PO HS [facility] Last Admin: 12/07/16 22:20 Dose: 145 mg Guaifenesin (Robitussin) 200 mg PO Q6 PRN PRN Reason: Cough Clindamycin Phosphate 600 mg/ (Sodium Chloride) 104 mls @ 104 mls/hr IVPB Q8@ 0500,1300,2100 [facility] Last Admin: 12/08/16 12:12 Dose: 104 mls/hr Levofloxacin/Dextrose (Levaquin 500mg) 500 mg in 100 mls @ 100 mls/hr IVPB DAILY@1700 [facility] Last Admin: 12/07/16 16:52 Dose: 100 mls/hr Insulin Human Lispro (Humalog) 0 units SC ACHS [facility] PRN Reason: Protocol Last Admin: 12/08/16 12:10 Dose: Not Given Lactobacillus Acidophilus (Bacid Acidophilus) 1 cap PO BID [facility] Last Admin: 12/08/16 09:00 Dose: 1 cap Lactulose (Enulose) 20 gm PO DAILY PRN PRN Reason: Constipation Lorazepam (Ativan) 0.5 mg PO HS PRN PRN Reason: Insomnia Metformin HCl (Glucophage) 500 mg PO DAILY [facility] Last Admin: 12/08/16 09:00 Dose: 500 mg Metoprolol Tartrate (Lopressor) 25 mg PO Q12 [facility] Last Admin: 12/08/16 09:01 Dose: 25 mg Pantoprazole Sodium (Protonix Ec Tab) 40 mg PO DAILY [facility] Last Admin: 12/08/16 09:02 Dose: 40 mg Paroxetine HCl (Paxil) 20 mg PO HS [facility] Last Admin: 12/07/16 21:00 Dose: 20 mg Risperidone (Risperdal Tab) 0.25 mg PO Q12@0900,2100 [facility] Last Admin: 12/08/16 09:03 Dose: 0.25 mg Rivastigmine (Exelon 4.6 Mg/24 Hr Patch) 1 patch TD DAILY [facility] Last Admin: 12/08/16 09:00 Dose: 1 patch - Labs Labs: 12/07/16 05:30 12/07/16 05:30 - Constitutional Appears: No Acute Distress - Head Exam Head Exam: ATRAUMATIC - Eye Exam Eye Exam: absent: Scleral icterus - ENT Exam ENT Exam: Mucous Membranes Moist - Neck Exam Neck Exam: absent: Meningismus - Respiratory Exam Respiratory Exam: absent: Rhonchi, Wheezes, Respiratory Distress - Cardiovascular Exam Cardiovascular Exam: REGULAR RHYTHM, +S1, +S2 - GI/Abdominal Exam GI & Abdominal Exam: Soft. absent: Tenderness - Rectal Exam Rectal Exam: Deferred - Neurological Exam Neurological Exam: Alert - Psychiatric Exam Psychiatric exam: Normal Affect - Skin Skin Exam: Dry, Intact Assessment and Plan - Assessment and Plan (Free Text) Assessment: 81 yo male with history of DM2, CAD, HTN, Dementia and previous CVA with residual left hemiparesis brought in because of fever and cough productive with yellow sputum. CXray showed RLL Pneumonia. Patient was admitted and started on IV Levaquin and Clindamycin. He was transferred after 3 days to TCU for completion of IV antibiotics and therapy. 1. Right lower lobe pneumonia, bacterial continue IV Clindamycin and Levaquin for a total of 10 days afebrile 2. CAD continue Plavix, statin, Metoprolol and Tricor asymptomatic 3. Type 2 DM, controlled BS controlled accucheck ACHS with coverage continue Metformin 500mg PO daily 4. Hypertension BP controlled continue Norvasc and Metoprolol 5. Hypercholesterolemia continue Statin and Tricor 6. Alzheimer's dementia continue Exelon patch on Xanax at 3 pm and at bedtime 7. History of CVA with residual left sided weakness continue Statin, Plavix
[2016-12-08] MEDS: levoFLOXacin 500 mg in D5W 500 MG/100 ML BAG IVPB SCH (16:51)
[2016-12-09] MEDS: Albuterol-Ipratrop 3 mg / 0.5 (3 ml) UD INH SCH ×7 (00:22→19:47)
[2016-12-09] MEDS: Clindamycin 600 MG in Sodium Chloride 0.9% 100 ML IVPB SCH ×4 (05:30→21:03)
[2016-12-09] MEDS: Insulin Lispro (humaLOG) 100 Units/ml Inj SC SCH ×4 (07:06→22:42)
[2016-12-09] MEDS: Pantoprazole 40 mg Susp UD PO SCH (08:44)
[2016-12-09] MEDS: Lactobacillus Acidophilus 500 MU Cap PO SCH ×2 (08:50→16:32)
[2016-12-09] MEDS: levoFLOXacin 500 mg in D5W 500 MG/100 ML BAG IVPB SCH (16:31)
[2016-12-10] MEDS: Albuterol-Ipratrop 3 mg / 0.5 (3 ml) UD INH SCH ×6 (00:52→19:11)
[2016-12-10] MEDS: Clindamycin 600 MG in Sodium Chloride 0.9% 100 ML IVPB SCH ×3 (06:20→21:22)
[2016-12-10] MEDS: Insulin Lispro (humaLOG) 100 Units/ml Inj SC SCH ×4 (07:33→21:30)
[2016-12-10] MEDS: Enoxaparin 40 mg Syringe SC SCH (10:12)
[2016-12-10] MEDS: Pantoprazole 40 mg Susp UD PO SCH (10:14)
[2016-12-10] MEDS: Lactobacillus Acidophilus 500 MU Cap PO SCH ×2 (10:16→16:34)
--- NOTE | 2016-12-10 10:53 | CP.PCM.PN ---
Subjective - Date & Time of Evaluation Date of Evaluation: 12/10/16 Time of Evaluation: 13:35 - Subjective Subjective: pt resting in bed with at bedside per staff, patient mentation has declined, sundowns, and may exhibit tardive dyskinesia discussed with , and patient to follow up with his neurologist, Dr Yeung. no other complaints at this time H D stable Objective - Vital Signs/Intake and Output Vital Signs (last 24 hours): Temp Pulse Resp BP Pulse Ox 97.7 F 89 20 127/52 L 90 L 12/10/16 08:00 12/10/16 10:13 12/10/16 08:00 12/10/16 10:13 12/10/16 08:00 Constitutional- cooperative, awake Head- NCAT, PERRL Eye- PERRL, normal accommodation ENT- normal exam, MMM. Neck- normal inspection, supple, no JVD Respiratory- CTAB, no wheezes rales rhonchi Cardiovascular- RRR, +S1, +S2 no MRG GI/Abdominal- normal bowel sounds, soft Skin- warm, dry Extremities Exam- normal capillary refill, normal inspection Neurological Exam- alert, awake Psych- normal mood, normal affect - Medications Medications: Current Medications Acetaminophen (Tylenol 325mg Tab) 650 mg PO QID PRN PRN Reason: Pain, moderate (4-7) Last Admin: 12/04/16 14:58 Dose: 650 mg Albuterol/Ipratropium (Duoneb 3 Mg/0.5 Mg (3 Ml) Ud) 3 ml INH RQ4 [facility] Last Admin: 12/10/16 07:58 Dose: 3 ml Amlodipine Besylate (Norvasc) 5 mg PO DAILY [facility] Last Admin: 12/10/16 10:13 Dose: Not Given Atorvastatin Calcium (Lipitor) 40 mg PO HS [facility] Last Admin: 12/09/16 22:40 Dose: 40 mg Clopidogrel Bisulfate (Plavix) 75 mg PO DAILY [facility] Last Admin: 12/10/16 10:13 Dose: Not Given Docusate Sodium (Colace Liquid) 100 mg PO BID [facility] Last Admin: 12/10/16 10:09 Dose: Not Given Enoxaparin Sodium (Lovenox) 40 mg SC DAILY [facility] PRN Reason: Protocol Last Admin: 12/10/16 10:12 Dose: 40 mg Fenofibrate (Tricor) 145 mg PO HS [facility] Last Admin: 12/09/16 22:39 Dose: 145 mg Guaifenesin (Robitussin) 200 mg PO Q6 PRN PRN Reason: Cough Clindamycin Phosphate 600 mg/ (Sodium Chloride) 104 mls @ 104 mls/hr IVPB Q8@ 0500,1300,2100 [facility] Last Admin: 12/10/16 06:20 Dose: 104 mls/hr Levofloxacin/Dextrose (Levaquin 500mg) 500 mg in 100 mls @ 100 mls/hr IVPB DAILY@1700 [facility] Last Admin: 12/09/16 16:31 Dose: 100 mls/hr Insulin Human Lispro (Humalog) 0 units SC ACHS [facility] PRN Reason: Protocol Last Admin: 12/10/16 07:33 Dose: Not Given Lactobacillus Acidophilus (Bacid Acidophilus) 1 cap PO BID [facility] Last Admin: 12/10/16 10:16 Dose: Not Given Lactulose (Enulose) 20 gm PO DAILY PRN PRN Reason: Constipation Metformin HCl (Glucophage) 500 mg PO DAILY [facility] Last Admin: 12/10/16 10:11 Dose: Not Given Metoprolol Tartrate (Lopressor) 25 mg PO Q12 [facility] Last Admin: 12/10/16 10:11 Dose: Not Given Pantoprazole Sodium (Protonix Susp) 40 mg PO DAILY [facility] Last Admin: 12/10/16 10:14 Dose: Not Given Paroxetine HCl (Paxil) 20 mg PO [facility] Last Admin: 12/09/16 22:39 Dose: 20 mg Risperidone (Risperdal Tab) 0.25 mg PO Q12@0900,2100 [facility] Last Admin: 12/10/16 10:14 Dose: 0.25 mg Rivastigmine (Exelon 4.6 Mg/24 Hr Patch) 1 patch TD DAILY [facility] Last Admin: 12/10/16 10:09 Dose: 1 patch - Labs Labs: 12/07/16 05:30 12/07/16 05:30 Assessment and Plan - Assessment and Plan (Free Text) Plan: 81 yo male with history of DM2, CAD, HTN, Dementia and previous CVA with residual left hemiparesis brought in because of fever and cough productive with yellow sputum. CXray showed RLL Pneumonia. Patient was admitted and started on IV Levaquin and Clindamycin. He was transferred after 3 days to TCU for completion of IV antibiotics and therapy. 1. Right lower lobe pneumonia, bacterial continue IV Clindamycin and Levaquin for a total of 10 days afebrile 2. CAD continue Plavix, statin, Metoprolol and Tricor asymptomatic 3. Type 2 DM, controlled BS controlled accucheck ACHS with coverage continue Metformin 500mg PO daily 4. Hypertension BP controlled continue Norvasc and Metoprolol 5. Hypercholesterolemia continue Statin and Tricor 6. Alzheimer's dementia continue Exelon patch on Xanax at 3 pm and at bedtime possible tardive dyskinesia? to follow up with own neurologist Dr. Yeung at discharge 7. History of CVA with residual left sided weakness continue Statin, Plavix
[2016-12-10] MEDS: levoFLOXacin 500 mg in D5W 500 MG/100 ML BAG IVPB SCH (16:38)
[2016-12-11] MEDS: Albuterol-Ipratrop 3 mg / 0.5 (3 ml) UD INH SCH ×4 (00:46→11:39)
[2016-12-11] MEDS: Clindamycin 600 MG in Sodium Chloride 0.9% 100 ML IVPB SCH ×2 (05:31→13:25)
[2016-12-11] MEDS: Insulin Lispro (humaLOG) 100 Units/ml Inj SC SCH ×2 (07:38→12:09)
[2016-12-11 08:12] VITALS: PULSE 89; TEMP 96.8; O2SAT 95
[2016-12-11] MEDS: Lactobacillus Acidophilus 500 MU Cap PO SCH (09:02)
[2016-12-11] MEDS: Pantoprazole 40 mg Susp UD PO SCH (09:03)
[2016-12-11] MEDS: Enoxaparin 40 mg Syringe SC SCH (09:04)
[2016-12-11 09:05] VITALS: BP 132/77
--- NOTE | 2016-12-11 11:07 | CP.PCM.DIS ---
Provider - Provider Date of Admission: 12/02/16 22:41 Attending physician: Clifford Martinez DO Time Spent in preparation of Discharge (in minutes): 30 Diagnosis - Discharge Diagnosis (1) Depression Status: Acute (2) Dementia with behavioral disturbance Status: Chronic Priority: Medium (3) Depression Status: Chronic Priority: Medium Onset Date: Unknown (4) Cellulitis Status: Acute (5) Cerebrovascular disease Status: Acute Hospital Course - Lab Results Lab Results: Most Recent Lab Values WBC 10.7 K/uL (4.8-10.8) 12/07/16 05:30 RBC 5.35 Mil/uL (4.40-5.90) 12/07/16 05:30 Hgb 12.6 g/dL (12.0-18.0) 12/07/16 05:30 Hct 39.5 % (35.0-51.0) 12/07/16 05:30 MCV 73.8 fl (80.0-94.0) L 12/07/16 05:30 MCH 23.6 pg (27.0-31.0) L 12/07/16 05:30 MCHC 32.0 g/dL (33.0-37.0) L 12/07/16 05:30 RDW 17.6 % (11.5-14.5) H 12/07/16 05:30 Plt Count 233 K/uL (130-400) 12/07/16 05:30 pCO2 42 mm/Hg (35-45) 12/03/16 15:18 pO2 61 mm/Hg (80-100) L 12/03/16 15:18 HCO3 29.7 mmol/L (21-28) H 12/03/16 15:18 ABG pH 7.47 (7.35-7.45) H 12/03/16 15:18 ABG Total CO2 31.9 mmol/L (22-28) H 12/03/16 15:18 ABG O2 Saturation 96.8 % (95-98) 12/03/16 15:18 ABG O2 Content 15.3 ML/dL (15-23) 12/03/16 15:18 ABG Base Excess 6.3 mmol/L (-2.0-3.0) H 12/03/16 15:18 ABG Hemoglobin 11.9 g/dL (11.7-17.4) 12/03/16 15:18 ABG Carboxyhemoglobin 3.4 % (0.5-1.5) H 12/03/16 15:18 POC ABG HHb (Measured) 3.0 % (0.0-5.0) 12/03/16 15:18 ABG Methemoglobin 2.2 % (0.0-3.0) 12/03/16 15:18 ABG O2 Capacity 15.8 mL/dL (16-24) L 12/03/16 15:18 Ryland Test Yes 12/03/16 15:18 A-a O2 Difference 36.0 mm/Hg 12/03/16 15:18 Hgb O2 Saturation 91.4 % (95.0-98.0) L 12/03/16 15:18 FiO2 21.0 % 12/03/16 15:18 Sodium 142 mmol/l (132-148) 12/07/16 05:30 Potassium 3.9 MMOL/L (3.6-5.0) 12/07/16 05:30 Chloride 104 mmol/L (98-107) 12/07/16 05:30 Carbon Dioxide 28 mmol/L (22-30) 12/07/16 05:30 Anion Gap 14 (10-20) 12/07/16 05:30 BUN 24 mg/dl (9-20) H 12/07/16 05:30 Creatinine 0.9 mg/dL (0.8-1.5) 12/07/16 05:30 Est GFR ( Amer) > 60 12/07/16 05:30 Est GFR (Non-Af Amer) > 60 12/07/16 05:30 POC Glucose (mg/dL) 94 mg/dL (65-110) 12/11/16 06:32 Random Glucose 113 mg/dL (75-110) H 12/07/16 05:30 Calcium 9.0 mg/dL (8.4-10.2) 12/07/16 05:30 - Hospital Course Hospital Course: 81 yo male with history of DM2, CAD, HTN, Dementia and previous CVA with residual left hemiparesis brought in because of fever and cough productive with yellow sputum. CXray showed RLL Pneumonia. Patient was admitted and started on IV Levaquin and Clindamycin. He was transferred after 3 days to TCU for completion of IV antibiotics and therapy. Patient began to exhibit further sundowning, and possibly some tardive dyskinesia. Will refer to Neuro Dr. Garcia as outpatient for further workup and management of dementia meds. Stable to be discharged home. 1. Right lower lobe pneumonia, bacterial continue IV Clindamycin and Levaquin for a total of 10 days afebrile 2. CAD continue Plavix, statin, Metoprolol and Tricor asymptomatic 3. Type 2 DM, controlled BS controlled accucheck ACHS with coverage continue Metformin 500mg PO daily 4. Hypertension BP controlled continue Norvasc and Metoprolol 5. Hypercholesterolemia continue Statin and Tricor 6. Alzheimer's dementia continue Exelon patch on Xanax at 3 pm and at bedtime possible tardive dyskinesia? to follow up with own neurologist Dr. Garcia at discharge 7. History of CVA with residual left sided weakness continue Statin, Plavix Discharge Exam - Head Exam Head Exam: ATRAUMATIC, NORMOCEPHALIC - Eye Exam Eye Exam: EOMI, Normal appearance - ENT Exam ENT Exam: Mucous Membranes Moist, Normal Oropharynx - Neck Exam Neck exam: Normal Inspection - Respiratory Exam Respiratory Exam: Clear to PA & Lateral, NORMAL BREATHING PATTERN - Cardiovascular Exam Cardiovascular Exam: RRR, +S1 - GI/Abdominal Exam GI & Abdominal Exam: Normal Bowel Sounds, Soft. absent: Mass, Organomegaly, Tenderness - Extremities Exam Extremities exam: normal capillary refill, pedal pulses present - Back Exam Back exam: absent: CVA tenderness (L), CVA tenderness (R) - Neurological Exam Neurological exam: Alert, Reflexes Normal - Psychiatric Exam Psychiatric exam: Normal Affect, Normal Mood - Skin Skin Exam: Dry, Normal Color, Warm Discharge Plan - Discharge Medications Prescriptions: amLODIPine [Norvasc] 5 mg PO DAILY #30 tab Atorvastatin [Lipitor] 40 mg PO HS #30 tab Clopidogrel [Plavix] 75 mg PO DAILY #30 tab Docusate [Colace] 100 mg PO BID #60 cap Fenofibrate [Tricor] 145 mg PO HS #30 tab Lactobacillus Acidophilus [Bacid Acidophilus] 1 cap PO BID #60 cap Lactulose [Enulose] 20 gm PO DAILY PRN #30 udc PRN Reason: Constipation metFORMIN [glucOPHAGE] 500 mg PO DAILY #30 tab Metoprolol Tartrate [Lopressor] 25 mg PO Q12 #30 tab Pantoprazole [Protonix EC Tab] 40 mg PO DAILY #30 ect PARoxetine [Paxil] 20 mg PO HS #30 tab Rivastigmine 4.6 mg/24 hr [Exelon 4.6 mg/24 hr Patch] 1 patch TD DAILY #30 patch - Follow Up Plan Condition: GOOD Disposition: HOME/ ROUTINE Instructions: Aspiration Pneumonia (DC), Chronic Dysphagia (DC), Fall Prevention (DC) Additional Instructions: FOLLOW UP WITH PCP FOLLOW UP WITH DR. GARCIA FOR TARDIVE DYSKINESIA AND SUNDOWNING, CONFUSION
== END 2016-12-11 16:00 | disposition home or self-care (01) | DRG 194 ==
LOC: H.TCU 22:41
PROVIDERS: ADMIT Internal Medicine; ATTEND Internal Medicine
PROC: F07Z5FZ Bed Mobility Treatment using Assistive, Adaptive, Supportive or Protective Equipment (ICD-10-PCS; principal; 2016-12-02)
PROC: F06Z6ZZ Communicative/Cognitive Integration Skills Treatment (ICD-10-PCS; 2016-12-02)
PROC: F07Z9FZ Gait Training/Functional Ambulation Treatment using Assistive, Adaptive, Supportive or Protective Equipment (ICD-10-PCS; 2016-12-02)
PROC: F08Z0FZ Bathing/Showering Techniques Treatment using Assistive, Adaptive, Supportive or Protective Equipment (ICD-10-PCS; 2016-12-02)
PROC: F08Z1FZ Dressing Techniques Treatment using Assistive, Adaptive, Supportive or Protective Equipment (ICD-10-PCS; 2016-12-02)
PROC: 5A0955Z Assistance with Respiratory Ventilation, Greater than 96 Consecutive Hours (ICD-10-PCS; 2016-12-02)
DX: J15.9 Unspecified bacterial pneumonia (principal); F02.81 Dementia in other diseases classified elsewhere, unspecified severity, with behavioral disturbance; G30.9 Alzheimer's disease, unspecified; F05 Delirium due to known physiological condition; I69.354 Hemiplegia and hemiparesis following cerebral infarction affecting left non-dominant side; E11.9 Type 2 diabetes mellitus without complications; Z88.0 Allergy status to penicillin; I25.10 Atherosclerotic heart disease of native coronary artery without angina pectoris; I10 Essential (primary) hypertension; E78.00 Pure hypercholesterolemia, unspecified; Z87.891 Personal history of nicotine dependence; F32.9 Major depressive disorder, single episode, unspecified

== ENCOUNTER 2018-05-27 08:35 | Emergency (ER) | payer MEDICARE, OTHER ==
[2018-05-27 08:39] VITALS: BMI 28.3
--- NOTE | 2018-05-27 09:34 | ED PDOC ---
Lower Extremity Pain/Injury Time Seen by Provider: 05/27/18 08:56 Chief Complaint (Nursing): Lower Extremity Problem/Injury Chief Complaint (Provider): Lower Extremity Problem/Injury History Per: Family History/Exam Limitations: clinical condition Onset/Duration Of Symptoms: Days Current Symptoms Are (Timing): Still Present Additional Complaint(s): 83 year old male with a past medical history of diabetes, stroke and dementia who was brought to the ED for evaluation of right knee swelling ongoing for a few months. Patient is non-verbal at baseline and is also asleep thus, history is provided by and daughter. states that she noted the swelling and reports some liquid in the right knee. She states that a nurse practitioner from Dr. Pittman office saw patient at home last week and recommended they present to the ED. denies any fevers, fall/trauma, or injury to the extremity. Of note, patient had a left sided stroke with residual and is wheel chair bound. PMD: July Sanders Past Medical History Reviewed: Historical Data, Nursing Documentation, Vital Signs Vital Signs: Last Vital Signs Temp 98.3 F 05/27/18 08:39 Pulse 91 H 05/27/18 08:39 Resp 17 05/27/18 08:39 BP 141/95 H 05/27/18 08:39 Pulse Ox 93 L 05/27/18 08:39 - Medical History PMH: Alzheimer's Disease, Arthritis, Asthma, CAD, CVA, Dementia, Depression, Diabetes, HTN, Hypercholesterolemia, Peripheral Edema, Pneumonia Denies: HIV, Chronic Kidney Disease - Surgical History Other surgeries: orthopedic surgery - Family History Family History: States: Unknown Family Hx - Social History Current smoker - smoking cessation education provided: No Alcohol: None Drugs: Denies - Home Medications Home Medications: Ambulatory Orders Medication Instructions Recorded Docusate [Colace] 100 mg PO BID #60 cap 12/11/16 Fenofibrate [Tricor] 145 mg PO HS #30 tab 12/11/16 Lactulose [Enulose] 20 gm PO DAILY PRN #30 udc 12/11/16 amLODIPine [Norvasc] 5 mg PO DAILY #30 tab 12/11/16 Albuterol HFA [Ventolin HFA 90 2 puff IH Q6 05/27/18 mcg/actuation (8 g)] Brimonidine Tartrate/Timolol 1 drop OU BID 05/27/18 [Combigan 0.2%-0.5% Eye Drops] Budesonide/Formoterol Fumarate 2 puff INH BID 05/27/18 [Symbicort 80-4.5 Mcg Inhaler] Clopidogrel Bisulfate [Plavix] 75 mg PO DAILY 05/27/18 LORazepam [Ativan] 0.5 mg PO TID 05/27/18 Metoprolol Tartrate [Lopressor] 25 mg PO BID 05/27/18 Montelukast Sodium [Singulair] 10 mg PO DAILY 05/27/18 Omeprazole 40 mg PO DAILY 05/27/18 Oxybutynin [Oxybutynin Chloride] 15 mg PO DAILY 05/27/18 PARoxetine [Paxil] 20 mg PO DAILY 05/27/18 Rivastigmine Tartrate 1 cap PO BID 05/27/18 [Rivastigmine] Simvastatin [Zocor] 40 mg PO HS 05/27/18 Travoprost [Travatan Z] 1 drop OU DAILY 05/27/18 metFORMIN [glucOPHAGE] 500 mg PO BID 05/27/18 - Allergies Allergies/Adverse Reactions: Allergies Allergy/AdvReac Type Severity Reaction Status Date / Time Penicillins Allergy RASH Verified 09/01/15 12:17 Review of Systems ROS Statement: Except As Marked, All Systems Reviewed And Found Negative Constitutional: Negative for: Fever Musculoskeletal: Positive for: Other (right knee swelling ) Physical Exam - Reviewed Nursing Documentation Reviewed: Yes Vital Signs Reviewed: Yes - Physical Exam Appears: Positive for: Non-toxic, No Acute Distress Head Exam: Positive for: ATRAUMATIC, NORMAL INSPECTION, NORMOCEPHALIC Skin: Positive for: Normal Color, Warm, DRY Cardiovascular/Chest: Positive for: Regular Rate, Rhythm Respiratory: Positive for: Normal Breath Sounds. Negative for: Respiratory Distress Gastrointestinal/Abdominal: Positive for: Normal Exam, Soft. Negative for: Tenderness Extremity: Positive for: Other (Right Knee: (-) warmth, (+) swelling and effusion to bursa and knee; Left Leg: residual weakness from stroke) Neurological/Psych: Positive for: Other (sleeping). Negative for: Oriented (at baseline ) - Laboratory Results Result Diagrams: 05/27/18 09:30 05/27/18 09:30 - ECG O2 Sat by Pulse Oximetry: 93 (RA) Medical Decision Making Medical Decision Making: Time: 9:24 Impression: right knee swelling Differentials: arthritis, gout Plan: --BNP --BMP --Uric Acid --CBC --Erythrocyte Sedimentation Rate --X-Ray Right Knee 11:[address] Sanders to discuss case. l also spoke with Dr. Casillas who states that there are no indications for urgent intervention and patient can follow up outpatient in 2-3 days. Provider notified family and Dr. Sanders of the plan. Family and Dr. Sanders agree with plan. All questions were answered. Scribe Attestation: Documented by Kay Valle, acting as a scribe for Indra Partida MD. Provider Scribe Attestation: All medical record entries made by the Scribe were at my direction and personally dictated by me. I have reviewed the chart and agree that the record accurately reflects my personal performance of the history, physical exam, medical decision making, and the department course for this patient. I have also personally directed, reviewed, and agree with the discharge instructions and disposition. Disposition - Clinical Impression Clinical Impression: Swelling of knee joint, right, Bursitis - Patient ED Disposition Is Patient to be Admitted: No Discussed With Dr.: July Sanders Doctor Will See Patient In The: Office Counseled Patient/Family Regarding: Studies Performed, Diagnosis, Need For Followup - Disposition Referrals: July Sanders MD [Family Provider] - Ld Casillas III, MD [Staff Provider] - Joseluis Buchanan MD [Staff Provider] - Disposition: Routine/Home Disposition Time: 11:49 Condition: GOOD Additional Instructions: MIGUEL CASTELLANO, thank you for letting us take care of you today. Your provider was Indra Partida MD and you were treated for RT KNEE PAIN. The emergency medical care you received today was directed at your acute symptoms. If you were prescribed any medication, please fill it and take as directed. It may take several days for your symptoms to resolve. Return to the Emergency Department if your symptoms worsen, do not improve, or if you have any other problems. Please contact your doctor or call one of the physicians/clinics you have been referred to that are listed on the Patient Visit Information form that is in cluded in your discharge packet. Bring any paperwork you were given at discharge with you along with any medications you are taking to your follow up visit. Our treatment cannot replace ongoing medical care by a primary care provider outside of the emergency department. Thank you for allowing the [facility] team to be part of your care today. If you had an X-Ray or CT scan: A Radiologist will review the ED reading if any change in treatment is needed we will contact you. Instructions: Bursitis, Osteoarthritis Forms: [employer] (Yoruba)
[2018-05-27 09:54] LABS: BASO # 0.1 K/uL (0.0-0.2); BASO % 0.5 % (0.0-2.0); EOS # 0.2 K/uL (0.0-0.7); EOS % 1.9 % (0.0-4.0); HEMOGLOBIN 12.3 g/dL (12.0-18.0); LYMPH # 1.2 K/uL (1.0-4.3); LYMPH % 12.1 % (20.0-40.0); MEAN CELL VOLUME 74.8 fl (80.0-94.0); MEAN CORPUSCULAR HEMOGLOBIN 23.9 pg (27.0-31.0); MEAN CORPUSCULAR HGB CONC 31.9 g/dL (33.0-37.0); MEAN PLATELET VOLUME 9.5 fl (7.2-11.7); MONO # 0.8 K/uL (0.0-0.8); MONO % 7.9 % (0.0-10.0); NEUT # 7.7 K/uL (1.8-7.0); NEUT % 77.6 % (50.0-75.0); NRBC % 0.1 % (0.0-0.0); RBC 5.15 Mil/uL (4.40-5.90); WHITE BLOOD COUNT 9.9 K/uL (4.8-10.8)
[2018-05-27 10:10] LABS: BLOOD UREA NITROGEN 21 mg/dl (9-20); CALCIUM 9.5 mg/dL (8.4-10.2); GFR NON-AFRICAN AMERICAN > 60; URIC ACID 6.2 mg/Dl (3.5-8.5)
[2018-05-27 10:17] LABS: B-TYPE NATRIURETIC PEPTIDE 527 pg/ml (0-900)
--- NOTE | 2018-05-27 11:00 | RAD ---
Date of service: 05/27/2018 PROCEDURE: Right Knee Radiographs. HISTORY: right knee swelling COMPARISON: None. TECHNIQUE: 2 views obtained. FINDINGS: BONES: No definitive radiographic evidence of acute displaced fracture nor dislocation. Osseous structures appear intact. There is a small triangular-shaped corticated bony density within the soft tissues anterior superior joint space margin. Rule out loose body.. Diffuse demineralization JOINTS: Tricompartmental degenerative osteoarthritis most notably affecting the medial compartment with moderate to significant joint space narrowing and mild subchondral sclerosis.. There is a enthesophyte arising from the tibial tubercle. JOINT EFFUSION: Large joint effusion. OTHER FINDINGS: Vascular calcifications are present.. IMPRESSION: No evidence of acute displaced fracture nor dislocation. Rule out small corticated loose body within the anterior joint space margin. Large joint effusion. Degenerative osteoarthritis most significantly affecting the medial compartment.
[2018-05-27 13:14] VITALS: BP 130/78; PULSE 78; RESP 20; TEMP 97.7; O2SAT 98
== END 2018-05-27 13:17 | disposition home or self-care (01) ==
LOC: H.ER 08:35
DX: M70.41 Prepatellar bursitis, right knee (principal); E11.9 Type 2 diabetes mellitus without complications; E78.00 Pure hypercholesterolemia, unspecified; F02.80 Dementia in other diseases classified elsewhere, unspecified severity, without behavioral disturbance, psychotic disturbance, mood disturbance, and anxiety; G30.9 Alzheimer's disease, unspecified; I10 Essential (primary) hypertension; Z86.73 Personal history of transient ischemic attack (TIA), and cerebral infarction without residual deficits; Z79.84 Long term (current) use of oral hypoglycemic drugs; Z88.0 Allergy status to penicillin

== ENCOUNTER 2018-07-19 15:27 | Inpatient (IN) | payer MEDICARE, OTHER ==
[2018-07-19 15:27] VITALS: BMI 28.3
--- NOTE | 2018-07-19 16:10 | ED PDOC ---
HPI: General Adult Time Seen by Provider: 07/19/18 15:43 Chief Complaint (Nursing): Altered Mental Status Chief Complaint (Provider): Altered Mental Status History Per: Patient, Family () History/Exam Limitations: clinical condition Onset/Duration Of Symptoms: Other (x1 week) Current Symptoms Are (Timing): Still Present Additional Complaint(s): Patient is an 83 y/o male with an extensive PMHx including two strokes who was brought in by who reports for the past week patient has had decreased PO intake, cough productive of phlegm, and decreased alertness. Patient has been taking Levaquin for the past five days with no sign of improvement. denies fever, vomiting, and diarrhea. According to patient is at baseline as far as cognitive state. PCP: Dr. July Crowder Past Medical History Reviewed: Historical Data, Nursing Documentation, Vital Signs Vital Signs: Last Vital Signs Temp 98.6 F 07/19/18 15:33 Pulse 101 H 07/19/18 15:33 Resp 16 07/19/18 15:33 BP 113/76 07/19/18 15:33 Pulse Ox 91 L 07/19/18 15:33 Primary Care Provider: July Sanders - Medical History PMH: Alzheimer's Disease, Arthritis, Asthma, CAD, CVA, Dementia, Depression, Diabetes, HTN, Hypercholesterolemia, Peripheral Edema, Pneumonia Denies: HIV, Chronic Kidney Disease Other PMH: strokes (x2) - Surgical History Other surgeries: prostate and cataract - Family History Family History: States: Unknown Family Hx - Social History Ex-Smoker (has not smoked in the last 12 months): Yes - Home Medications Home Medications: Ambulatory Orders Medication Instructions Recorded LORazepam [Ativan] 0.5 mg PO DAILY 05/27/18 Metoprolol Tartrate [Lopressor] 25 mg PO BID 05/27/18 Omeprazole 40 mg PO DAILY 05/27/18 PARoxetine [Paxil] 20 mg PO DAILY 05/27/18 Rivastigmine Tartrate 1 cap PO DAILY 05/27/18 [Rivastigmine] Simvastatin [Zocor] 40 mg PO HS 05/27/18 metFORMIN [glucOPHAGE] 500 mg PO DAILY 05/27/18 - Allergies Allergies/Adverse Reactions: Allergies Allergy/AdvReac Type Severity Reaction Status Date / Time Penicillins Allergy RASH Verified 07/19/18 15:31 Review of Systems Review Of Systems: ROS cannot be obtained secondary to pt's inabilty to answer questions. Constitutional: Negative for: Fever, Other (decreased alertness) Respiratory: Positive for: Cough (productive of phlegm) Gastrointestinal: Negative for: Vomiting, Diarrhea Physical Exam - Reviewed Nursing Documentation Reviewed: Yes Vital Signs Reviewed: Yes - Physical Exam Appears: Positive for: In Acute Distress Head Exam: Positive for: ATRAUMATIC, NORMAL INSPECTION, NORMOCEPHALIC Skin: Positive for: Normal Color, Warm, DRY Eye Exam: Negative for: Normal appearance (eyes are closed) ENT: Positive for: Normal ENT Inspection Neck: Positive for: Normal, Painless ROM, Supple Cardiovascular/Chest: Positive for: Regular Rate, Rhythm. Negative for: Murmur Respiratory: Positive for: Crackles, Respiratory Distress (mild), Other (mild t achypnea) Gastrointestinal/Abdominal: Positive for: Normal Exam, Soft. Negative for: Tenderness Back: Positive for: Normal Inspection. Negative for: L CVA Tenderness, R CVA Tenderness Extremity: Positive for: Normal ROM. Negative for: Pedal Edema, Deformity Neurological/Psych: Positive for: Other (patient is at baseline according to : non-verbal, aphasic, does respond to painful stimuli but not verbal) - Laboratory Results Result Diagrams: 07/21/18 05:15 07/21/18 05:15 - ECG ECG Rhythm: Positive for: Sinus Rhythm Interpretation Of Abn EKG: left axis deviation, LVH Rate: 93 O2 Sat by Pulse Oximetry: 91 (RA) Pulse Ox Interpretation: Normal - Critical Care Total Time (In Min): 60 Medical Decision Making Medical Decision Making: Time: 1602 shortness of breath, decreased po intake, r/o sepsis, electrolyte abnormality, flu, and PNA Upon review of patients records pt is DNR/DNI. Will give BIPAP for respiratory distress. ABG Shock Panel EKG CMP Magnesium Phosphorus CBC PTT Prothrombin Time CXR Glucose, POC Routine Blood Culture Urine Culture Recruit Instructor BIPAP/CPAP Setting Adjustment Influenza A B UA Time: 1615 Finger stick is 118. Time: 1625 Lactic acid normal at 1.7. 17:35 CXR COMPARISON: 11/30/2016. FINDINGS: LUNGS: The lungs are well inflated. There is patchy airspace disease in the right lower lobe. No focal consolidation. PLEURA: No pleural effusions or pneumothorax. CARDIOVASCULAR: The heart is normal in size. There are aortic atherosclerotic calcifications present. OSSEOUS STRUCTURES: Within normal limits for the patient's age. VISUALIZED UPPER ABDOMEN: Normal. OTHER FINDINGS: None. IMPRESSION: Patchy airspace disease in the right lower lobe may represent atelectasis or pneumonia. Follow-up after medical management is recommended to ensure complete resolution. 17:39 Chest x-ray reveals possible right sided pneumonia. UA results reveal UTI. iv antibiotics ordered. Patient will be admitted to the hospitalist , Dr. Hooper, for further evaluation. 18:32 Patient was slightly hypoxic despite bipap, probably due to pneumonia. Increased bipap settings to increased O2 saturation. discussed with that condition is serious. ------- Scribe Attestation: Documented by Mikal Isidro, acting as a scribe for Dannielle Palacio MD. Provider Scribe Attestation: All medical record entries made by the Scribe were at my direction and personally dictated by me. I have reviewed the chart and agree that the record accurately reflects my personal performance of the history, physical exam, medical decision making, and the department course for this patient. I have also personally directed, reviewed, and agree with the discharge instructions and disposition. Disposition - Clinical Impression Clinical Impression: Dementia, Pneumonia - Patient ED Disposition Is Patient to be Admitted: Yes Counseled Patient/Family Regarding: Studies Performed, Diagnosis - Disposition Disposition Time: 17:30 Condition:
[2018-07-19 16:13] LABS: ABG ALLEN TEST YES; ARTERIAL BLOOD GAS HCO3 29.4 mmol/L (21-28); ARTERIAL BLOOD GAS O2 SAT 97.9 % (95-98); ARTERIAL BLOOD GAS PCO2 47 mm/Hg (35-45); ARTERIAL BLOOD GAS PH 7.43 (7.35-7.45); ARTERIAL BLOOD GAS PO2 72 mm/Hg (80-100); ARTERIAL BLOOD GAS TCO2 32.6 mmol/L (22-28)
[2018-07-19 16:56] LABS: SQUAMOUS EPITHIAL < 1 /hpf (0-5); URINE BILIRUBIN NEGATIVE (NEGATIVE); URINE BLOOD NEGATIVE (NEGATIVE); URINE CLARITY SLIGHTY-CLOUDY (Clear); URINE COLOR AMBER (YELLOW); URINE GLUCOSE (UA) NEG (NEGATIVE); URINE LEUKOCYTE ESTERASE SMALL Leu/uL (Negative); URINE PROTEIN 30 mg/dL (NEGATIVE); URINE UROBILINOGEN 0.2-1.0 mg/dL (0.2-1.0)
[2018-07-19 17:14] LABS: BASO % 0.4 % (0.0-2.0); HEMOGLOBIN 14.3 g/dL (12.0-18.0); LYMPH # 0.9 K/uL (1.0-4.3); LYMPH % 7.8 % (20.0-40.0); MEAN CELL VOLUME 76.2 fl (80.0-94.0); MEAN CORPUSCULAR HEMOGLOBIN 24.4 pg (27.0-31.0); MEAN PLATELET VOLUME 9.8 fl (7.2-11.7); MONO # 0.6 K/uL (0.0-0.8); MONO % 5.1 % (0.0-10.0); NEUT # 9.9 K/uL (1.8-7.0); NEUT % 86.7 % (50.0-75.0); NRBC % 0.1 % (0.0-0.0); PLATELET COUNT 332 K/uL (130-400); RBC 5.86 Mil/uL (4.40-5.90); RED CELL DISTRIBUTION WIDTH 18.9 % (11.5-14.5); WHITE BLOOD COUNT 11.4 K/uL (4.8-10.8)
[2018-07-19 17:22] LABS: ALB/GLOB RATIO 0.9 (1.0-2.1); ALBUMIN 3.4 g/dL (3.5-5.0); ALT/SGPT 28 U/L (21-72); AST/SGOT 37 U/L (17-59); BLOOD UREA NITROGEN 49 mg/dl (9-20); CALCIUM 10.3 mg/dL (8.4-10.2); GFR NON-AFRICAN AMERICAN 53
--- NOTE | 2018-07-19 17:36 | RAD ---
Date of service: 07/19/2018 HISTORY: Sepsis Patient COMPARISON: 11/30/2016. FINDINGS: LUNGS: The lungs are well inflated. There is patchy airspace disease in the right lower lobe. No focal consolidation. PLEURA: No pleural effusions or pneumothorax. CARDIOVASCULAR: The heart is normal in size. There are aortic atherosclerotic calcifications present. OSSEOUS STRUCTURES: Within normal limits for the patient's age. VISUALIZED UPPER ABDOMEN: Normal. OTHER FINDINGS: None. IMPRESSION: Patchy airspace disease in the right lower lobe may represent atelectasis or pneumonia. Follow-up after medical management is recommended to ensure complete resolution.
[2018-07-19] MEDS ORDERED: Sodium Chloride 0.9% 1,000 ML IV STA (17:41)
[2018-07-19 17:42] LABS: INR 1.5; PROTHROMBIN TIME 17.7 Seconds (9.8-13.1)
[2018-07-19 17:44] LABS: PARTIAL THROMBOPLASTIN TIME 33.5 Seconds (25.6-37.1)
[2018-07-19] MEDS ORDERED: Azithromycin 500 MG in Sodium Chloride 0.9% 250 ML IVPB STA (18:05)
[2018-07-19 18:15] LABS: BANDS 6 % (0-2); LYMPHOCYTE 11 % (20-50); MONOCYTE 4 % (0-10); NEUTROPHIL 79 % (42-75); PLATELET ESTIMATE NORMAL (NORMAL); TOTAL CELLS COUNTED 100
[2018-07-19 18:16] LABS: ANISOCYTOSIS SLIGHT; LARGE PLATELETS PRESENT; OVALOCYTES SLIGHT
[2018-07-19] MEDS ORDERED: Vancomycin 1 g Inj ONE (18:21)
[2018-07-19] MEDS ORDERED: Azithromycin 500 MG IV IVPB ONE (18:22)
--- NOTE | 2018-07-19 19:21 | CP.PCM.HP ---
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 History obtained from patient's that states patient has been having poor PO intake especially last week and is feeling weaker . states that patient has difficulty clearing his secretions and has been having secretions in his throat for almost 1 month with no chest congestion , no fever , no cough.He has dysphagia since his stroke and is on pure diet and thickened liquids. Patient's PMD sent prescription for levaquine PO 4 days ago and patient has been taking with not much improvement denies any fever , chills,weight loss, urinary symptoms, changes in bowel movements. Allergies; PCN PMH ; DM, HTN, Dyslipidemia, CVA ( 1986, 2002), dementia, dysphagia Medications; metformin, omeprazole, Ativan ,paroxetine, rivastigmine, metoprolol, simvastatin,combigen, latanoprost Surgery ; Prostate surgery, cataract,right neck cyst removal Family history ; None Social history ; lives with in [place], disabled, not ambulatory because of the stroke, ex smoker, no ETOH or drug abuse has homemaker, on pure diet and thickened liquids Code status; DNR/ DNI PMD ; Dr Sanders ROS ; weak, decreased Po intake, dysphagia no fever 14 point review of system negative except frankie Present on Admission - Present on Admission Any Indicators Present on Admission: No Review of Systems - Review of Systems All systems: reviewed and no additional remarkable complaints except Past Patient History - Infectious Disease Hx of Infectious Diseases: None - Tetanus Immunizations Tetanus Immunization: Unknown - Past Medical History & Family History Past Medical History?: Yes - Past Social History Smoking Status: Former Smoker Chewing Tobacco Use: No Cigar Use: No Alcohol: None Drugs: Denies Home Situation {Lives}: With Family Domestic Violence: Negative - CARDIAC Hx Hypercholesterolemia: Yes Hx Hypertension: Yes Hx Peripheral Edema: Yes - PULMONARY Hx Asthma: Yes Hx Pneumonia: Yes - NEUROLOGICAL Hx Alzheimer's Disease: Yes Hx Dementia: Yes - HEENT Hx HEENT Problems: No - RENAL Hx Chronic Kidney Disease: No - ENDOCRINE/METABOLIC Hx Diabetes Mellitus Type 2: Yes - HEMATOLOGICAL/ONCOLOGICAL Hx Human Immunodeficiency Virus (HIV): No - INTEGUMENTARY Hx Dermatological Problems: No - MUSCULOSKELETAL/RHEUMATOLOGICAL Hx Arthritis: Yes - GASTROINTESTINAL Hx Gastrointestinal Disorders: No - GENITOURINARY/GYNECOLOGICAL Hx Incontinence: Yes Hx Prostate Problems: Yes - PSYCHIATRIC Hx Depression: Yes - SURGICAL HISTORY Hx Cataract Extraction: Yes (bilateral eyes) Hx Orthopedic Surgery: Yes (Right shoulder 10 years ago) Other/Comment: Prostate Surgery 2009, Gland surgery behind right ear - ANESTHESIA Hx Anesthesia: Yes Hx Anesthesia Reactions: No Meds Allergies/Adverse Reactions: Allergies Allergy/AdvReac Type Severity Reaction Status Date / Time Penicillins Allergy RASH Verified 07/19/18 15:31 Physical Exam - Constitutional Appears: Other (lethargic ) - Head Exam Head Exam: ATRAUMATIC, NORMOCEPHALIC - Eye Exam Eye Exam: PERRL - ENT Exam ENT Exam: Mucous Membranes Dry - Respiratory Exam Respiratory Exam: Accessory Muscle Use, Respiratory Distress. absent: Rhonchi, Wheezes - Cardiovascular Exam Cardiovascular Exam: REGULAR RHYTHM. absent: JVD - GI/Abdominal Exam GI & Abdominal Exam: Soft. absent: Distended, Guarding, Rebound, Tenderness - Rectal Exam Rectal Exam: Deferred - Extremities Exam Extremities exam: Positive for: normal capillary refill, pedal pulses present. Negative for: pedal edema - Neurological Exam Additional comments: lethargic not responding to verbal commands - Skin Skin Exam: Dry, Warm Results - Vital Signs Recent Vital Signs: Last Vital Signs Temp 98.6 F 07/19/18 15:33 Pulse 93 H 07/19/18 18:53 Resp 16 07/19/18 15:33 BP 113/76 07/19/18 15:33 Pulse Ox 91 L 07/19/18 18:53 - Labs Result Diagrams: 07/19/18 16:45 07/19/18 16:45 Labs: Laboratory Results - last 24 hr 07/19/18 07/19/18 07/19/18 15:32 15:59 16:09 WBC RBC Hgb Hct MCV MCH MCHC RDW Plt Count MPV Neut % (Auto) Lymph % (Auto) [place] % (Auto) Eos % (Auto) Baso % (Auto) Neut # (Auto) Lymph # (Auto) [place] # (Auto) Eos # (Auto) Baso # (Auto) Neutrophils % (Manual) Band Neutrophils % Lymphocytes % (Manual) Monocytes % (Manual) Platelet Estimate Large Platelets Anisocytosis (manual) Ovalocytes PT INR APTT pCO2 47 H pO2 72 L HCO3 29.4 H ABG pH 7.43 ABG Total CO2 32.6 H ABG O2 Saturation 97.9 ABG Base Excess 5.8 H Ryland Test Yes ABG Potassium 4.1 A-a O2 Difference 582.0 Sodium 144.0 Chloride 109.0 H Glucose 126 H Lactate 1.7 Vent Mode Bipap Mechanical Rate 12 FiO2 100.0 Inspiratory BiPAP 10 Expiratory BiPAP 5 Potassium Carbon Dioxide Anion Gap BUN Creatinine Est GFR ( Amer) Est GFR (Non-Af Amer) POC Glucose (mg/dL) 113 H 118 H Random Glucose Calcium Phosphorus Magnesium Total Bilirubin AST ALT Alkaline Phosphatase Total Protein Albumin Globulin Albumin/Globulin Ratio Arterial Blood Potassium 4.1 Urine Color Urine Clarity Urine pH Ur Specific Floyd Urine Protein Urine Glucose (UA) Urine Ketones Urine Blood Urine Nitrate Urine Bilirubin Urine Urobilinogen Ur Leukocyte Esterase Urine RBC (Auto) Urine Microscopic WBC Ur Squamous Epith Cells Hyaline Casts Influenza Typ A,B (EIA) 07/19/18 07/19/18 07/19/18 16:21 16:35 16:45 WBC 11.4 H RBC 5.86 Hgb 14.3 D Hct 44.6 MCV 76.2 L MCH 24.4 L MCHC 32.0 L RDW 18.9 H Plt Count 332 D MPV 9.8 Neut % (Auto) 86.7 H Lymph % (Auto) 7.8 L [place] % (Auto) 5.1 Eos % (Auto) 0.0 Baso % (Auto) 0.4 Neut # (Auto) 9.9 H Lymph # (Auto) 0.9 L [place] # (Auto) 0.6 Eos # (Auto) 0.0 Baso # (Auto) 0.0 Neutrophils % (Manual) 79 H Band Neutrophils % 6 H Lymphocytes % (Manual) 11 L Monocytes % (Manual) 4 Platelet Estimate Normal Large Platelets Present Anisocytosis (manual) Slight Ovalocytes Slight PT INR APTT pCO2 pO2 HCO3 ABG pH ABG Total CO2 ABG O2 Saturation ABG Base Excess Ryland Test ABG Potassium A-a O2 Difference Sodium Chloride Glucose Lactate Vent Mode Mechanical Rate FiO2 Inspiratory BiPAP Expiratory BiPAP Potassium Carbon Dioxide Anion Gap BUN Creatinine Est GFR ( Amer) Est GFR (Non-Af Amer) POC Glucose (mg/dL) Random Glucose Calcium Phosphorus Magnesium Total Bilirubin AST ALT Alkaline Phosphatase Total Protein Albumin Globulin Albumin/Globulin Ratio Arterial Blood Potassium Urine Color Cheryle Urine Clarity Slighty-cloudy Urine pH 5.0 Ur Specific Floyd 1.025 Urine Protein 30 Urine Glucose (UA) Neg Urine Ketones Negative Urine Blood Negative Urine Nitrate Negative Urine Bilirubin Negative Urine Urobilinogen 0.2-1.0 Ur Leukocyte Esterase Small Urine RBC (Auto) 27 H Urine Microscopic WBC 8 H Ur Squamous Epith Cells < 1 Hyaline Casts 6-10 H Influenza Typ A,B (EIA) Negative for flu a/b 07/19/18 07/19/18 16:45 16:45 WBC RBC Hgb Hct MCV MCH MCHC RDW Plt Count MPV Neut % (Auto) Lymph % (Auto) [place] % (Auto) Eos % (Auto) Baso % (Auto) Neut # (Auto) Lymph # (Auto) [place] # (Auto) Eos # (Auto) Baso # (Auto) Neutrophils % (Manual) Band Neutrophils % Lymphocytes % (Manual) Monocytes % (Manual) Platelet Estimate Large Platelets Anisocytosis (manual) Ovalocytes PT 17.7 H INR 1.5 APTT 33.5 pCO2 pO2 HCO3 ABG pH ABG Total CO2 ABG O2 Saturation ABG Base Excess Ryland Test ABG Potassium A-a O2 Difference Sodium 145 Chloride 103 Glucose Lactate Vent Mode Mechanical Rate FiO2 Inspiratory BiPAP Expiratory BiPAP Potassium 4.3 Carbon Dioxide 32 H Anion Gap 14 BUN 49 H Creatinine 1.3 Est GFR ( Amer) > 60 Est GFR (Non-Af Amer) 53 POC Glucose (mg/dL) Random Glucose 118 H Calcium 10.3 H Phosphorus 4.7 H Magnesium 2.2 Total Bilirubin 0.6 AST 37 ALT 28 Alkaline Phosphatase 93 Total Protein 7.4 Albumin 3.4 L Globulin 4.0 H Albumin/Globulin Ratio 0.9 L Arterial Blood Potassium Urine Color Urine Clarity Urine pH Ur Specific Floyd Urine Protein Urine Glucose (UA) Urine Ketones Urine Blood Urine Nitrate Urine Bilirubin Urine Urobilinogen Ur Leukocyte Esterase Urine RBC (Auto) Urine Microscopic WBC Ur Squamous Epith Cells Hyaline Casts Influenza Typ A,B (EIA) Assessment & Plan - Assessment and Plan (Free Text) Assessment: 83 y/o male with PMH DM type II, Dementia, HTN, dyslipidemia , 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 Sepsis most likely secondary to pneumonia will send blood, urine and sputum cultures will start on Aztreonam and Zithromycin IV. Received Vancomycin 1 dose IV Continue IVF 2. Acute hypoxemic respiratory failure patient is DNR/DNI on BIPAP Start Duonebs RTC , acetylcysteine INH Keep HOB elevated NPO for now IV antibiotics for oneumonia 3. CAP Start Aztreonam and Zithromycin Send sputum and blood cx 4.Dehydration / Azotemia start IVF 5. DM type II NPO for now Start accuchecks Change fluids to D5NS Check Hgb A1c 6. 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 Hypertension BP on the lower side Monitor for now without meds Start metoprolol with parameters 8. Dyslipidemia 9. Dementia hold Rivastigmine 10. History CVA with residual left side weakness 11. DVT prophylaxis start Lovenox
[2018-07-19] MEDS ORDERED: Dextrose 5%/0.9% NS 1,000 ML IV ONE (19:43)
[2018-07-19] MEDS ORDERED: Albuterol-Ipratrop 3 mg / 0.5 (3 ml) UD INH SCH (20:00)
[2018-07-19] MEDS: Acetylcysteine 20% Inhal Soln (4ml) INH SCH (21:55)
[2018-07-20 05:00] LABS: ABG ALLEN TEST YES
[2018-07-20 06:07] LABS: BASO % 0.1 % (0.0-2.0); LYMPH # 0.8 K/uL (1.0-4.3); LYMPH % 8.9 % (20.0-40.0); MEAN CELL VOLUME 77.4 fl (80.0-94.0); MEAN CORPUSCULAR HEMOGLOBIN 24.2 pg (27.0-31.0); MEAN CORPUSCULAR HGB CONC 31.2 g/dL (33.0-37.0); MEAN PLATELET VOLUME 9.9 fl (7.2-11.7); MONO # 0.6 K/uL (0.0-0.8); MONO % 6.3 % (0.0-10.0); NEUT # 7.8 K/uL (1.8-7.0); NEUT % 84.7 % (50.0-75.0); RBC 5.1 Mil/uL (4.40-5.90); RED CELL DISTRIBUTION WIDTH 18.7 % (11.5-14.5); WHITE BLOOD COUNT 9.2 K/uL (4.8-10.8)
[2018-07-20 06:31] LABS: ALB/GLOB RATIO 0.8 (1.0-2.1); ALBUMIN 2.8 g/dL (3.5-5.0); ALT/SGPT 29 U/L (21-72); AST/SGOT 44 U/L (17-59); BLOOD UREA NITROGEN 51 mg/dl (9-20); CALCIUM 9.2 mg/dL (8.4-10.2); GFR NON-AFRICAN AMERICAN 58; HDL CHOLESTEROL 23 MG/DL (30-70); HEMOGLOBIN 12.3 g/dL (12.0-18.0)
[2018-07-20 06:33] LABS: LDL CHOLESTEROL 32 mg/dL (0-129)
[2018-07-20] MEDS ORDERED: Sodium Chloride 3% for Inhalation 4 ML VIAL.NEB IH PRN (07:59)
[2018-07-20] MEDS: Albuterol-Ipratrop 3 mg / 0.5 (3 ml) UD INH SCH ×8 (08:04→23:24)
[2018-07-20] MEDS: Acetylcysteine 20% Inhal Soln (4ml) INH SCH ×2 (08:04→19:39)
[2018-07-20] MEDS ORDERED: Moxifloxacin IV 400mg/250ml NS 400 MG/250 ML BAG IVPB SCH (09:00)
[2018-07-20 09:08] LABS: ABG ALLEN TEST YES; ARTERIAL BLOOD GAS HCO3 28.6 mmol/L (21-28); ARTERIAL BLOOD GAS HEMOGLOBIN 12.8 g/dL (11.7-17.4); ARTERIAL BLOOD GAS O2 CAPACITY 17.4 mL/dL (16-24); ARTERIAL BLOOD GAS O2 CONTENT 16.8 ML/dL (15-23); ARTERIAL BLOOD GAS O2 SAT 96.4 % (95-98); ARTERIAL BLOOD GAS PCO2 45 mm/Hg (35-45); ARTERIAL BLOOD GAS PH 7.43 (7.35-7.45); ARTERIAL BLOOD GAS PO2 73 mm/Hg (80-100); ARTERIAL BLOOD GAS TCO2 31.3 mmol/L (22-28)
[2018-07-20] MEDS: Azithromycin 500 MG in Sodium Chloride 0.9% 250 ML IVPB SCH (09:48)
[2018-07-20] MEDS: Aztreonam 1 GM in Sodium Chloride 0.9% 100 ML IVPB SCH ×2 (09:49→17:38)
--- NOTE | 2018-07-20 10:35 | CARD ---
APPROVED REPORT Date of service: 07/20/2018 EKG Measurement Heart [id number] <Conclusion> Sinus rhythm with occasional premature ventricular complexes and premature atrial complexes Incomplete right bundle branch block Left anterior fascicular block Abnormal ECG
--- NOTE | 2018-07-20 10:54 | CARD ---
APPROVED REPORT Date of service: 07/19/2018 EKG Measurement Heart [id number] <Conclusion> Normal sinus rhythm Possible Left atrial enlargement Left axis deviation Incomplete right bundle branch block Left ventricular hypertrophy Abnormal ECG
--- NOTE | 2018-07-20 12:09 | CP.PCM.PN ---
<Elvi Bates - Last Filed: 07/20/18 14:29> Subjective - Date & Time of Evaluation Date of Evaluation: 07/20/18 Time of Evaluation: 10:45 - Subjective Subjective: Patient seen and examined at bedside. Patient is asleep on Bipap but arousable. Denies any complaint. No acute overnight event. Hemodynamically stable. Objective - Vital Signs/Intake and Output Vital Signs (last 24 hours): Temp Pulse Resp BP Pulse Ox 97.5 F L 95 H 18 150/86 96 07/20/18 07:58 07/20/18 11:30 07/20/18 07:58 07/20/18 07:58 07/20/18 07:58 Intake and Output: 07/20/18 07/20/18 06:59 18:59 Intake Total 900 Output Total 350 Balance 550 - Medications Medications: Current Medications Acetaminophen (Tylenol 650 Mg Supp) 650 mg VA Q6 PRN PRN Reason: Fever >100.4 F Acetylcysteine (Acetylcysteine 20%) 2 ml INH RBID [facility] Last Admin: 07/20/18 08:04 Dose: 2 ml Albuterol/Ipratropium (Duoneb 3 Mg/0.5 Mg (3 Ml) Ud) 3 ml INH Q4 [facility] Last Admin: 07/20/18 11:28 Dose: 3 ml Atorvastatin Calcium (Lipitor) 20 mg PO HS [facility] Enoxaparin Sodium (Lovenox) 40 mg SC DAILY [facility]; Protocol Famotidine (Pepcid) 40 mg IVP DAILY [facility] Last Admin: 07/20/18 11:48 Dose: 40 mg Aztreonam 1 gm/ Sodium (Chloride) 100 mls @ 100 mls/hr IVPB Q8 [facility]; Protocol Last Admin: 07/20/18 09:49 Dose: 100 mls/hr Azithromycin 500 mg/ Sodium (Chloride) 250 mls @ 250 mls/hr IVPB DAILY [facility]; Protocol Last Admin: 07/20/18 09:48 Dose: 250 mls/hr Ceftriaxone Sodium 1 gm/ (Sodium Chloride) 100 mls @ 100 mls/hr IVPB DAILY [facility]; Protocol Last Admin: 07/20/18 09:50 Dose: 100 mls/hr Metoprolol Tartrate (Lopressor) 25 mg PO BID [facility] Last Admin: 07/20/18 10:07 Dose: Not Given Ondansetron HCl (Zofran Inj) 4 mg IVP Q6 PRN PRN Reason: Nausea/Vomiting - Labs Labs: 07/20/18 04:55 07/20/18 04:55 PT 17.7 Seconds (9.8-13.1) H 07/19/18 16:45 INR 1.5 07/19/18 16:45 APTT 33.5 Seconds (25.6-37.1) 07/19/18 16:45 - Constitutional Appears: Toxic, Chronically Ill - Eye Exam Eye Exam: Normal appearance - ENT Exam ENT Exam: Mucous Membranes Moist - Respiratory Exam Respiratory Exam: Clear to Ausculation Bilateral, Rales - Cardiovascular Exam Cardiovascular Exam: +S1, +S2 - GI/Abdominal Exam GI & Abdominal Exam: Soft, Normal Bowel Sounds. 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 Admitted for sepsis most likely secondary to pneumonia. Patient is more lethargic this morning. Plan: Sepsis most likely secondary to pneumonia CXR showing RLL infiltrate Follow up blood, urine and sputum cultures C/W Aztreonam (day 1) and Zithromycin IV (day 1). Received Vancomycin 1 dose IV Continue IVF Acute hypoxemic respiratory failure patient is DNR/DNI on BIPAP ABG on admission: ph 7.4 PCPO2 47 PO2 72 ; Repeat ph 7.43 PCO2: 45 PO2 73 Start Duonebs RTC , acetylcysteine INH Keep HOB elevated NPO for now IV antibiotics for pneumonia Lethargy - Consult neurology - CT scan of head without contrast: significant chronic white matter ischemic changes. Multiple bilateral basal nuclei with suspected brainstem and cerebellar ischemic changes. Moderate to significant volume loss somewhat more central evidenced by disproportionate enlargement the ventricles as compared sulci. 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 on pure and thickened liquids will keep NPO for now Check accuchecks Hypertension BP on the lower side Monitor for now without meds Start metoprolol with parameters Dyslipidemia Dementia hold Rivastigmine History CVA with residual left side weakness DVT prophylaxis Lovenox <Yani Hannah - Last Filed: 07/20/18 15:14> Objective - Vital Signs/Intake and Output Vital Signs (last 24 hours): Temp Pulse Resp BP Pulse Ox 98.2 F 103 H 18 144/83 97 07/20/18 12:19 07/20/18 12:19 07/20/18 12:19 07/20/18 12:19 07/20/18 12:19 Intake and Output: 07/20/18 07/20/18 06:59 18:59 Intake Total 900 Output Total 350 Balance 550 - Medications Medications: Current Medications Acetaminophen (Tylenol 650 Mg Supp) 650 mg VA Q6 PRN PRN Reason: Fever >100.4 F Acetylcysteine (Acetylcysteine 20%) 2 ml INH RBID [facility] Last Admin: 07/20/18 08:04 Dose: 2 ml Albuterol/Ipratropium (Duoneb 3 Mg/0.5 Mg (3 Ml) Ud) 3 ml INH Q4 [facility] Last Admin: 07/20/18 11:28 Dose: 3 ml Aspirin (Aspirin Supp) 300 mg VA DAILY [facility] Atorvastatin Calcium (Lipitor) 20 mg PO HS [facility] Enoxaparin Sodium (Lovenox) 40 mg SC DAILY [facility]; Protocol Last Admin: 07/20/18 12:43 Dose: 40 mg Famotidine (Pepcid) 40 mg IVP DAILY [facility] Last Admin: 07/20/18 11:48 Dose: 40 mg Aztreonam 1 gm/ Sodium (Chloride) 100 mls @ 100 mls/hr IVPB Q8 [facility]; Protocol Last Admin: 07/20/18 09:49 Dose: 100 mls/hr Azithromycin 500 mg/ Sodium (Chloride) 250 mls @ 250 mls/hr IVPB DAILY [facility]; Protocol Last Admin: 07/20/18 09:48 Dose: 250 mls/hr Metoprolol Tartrate (Lopressor) 25 mg PO BID [facility] Last Admin: 05/29/19 10:07 Dose: Not Given Ondansetron HCl (Zofran Inj) 4 mg IVP Q6 PRN PRN Reason: Nausea/Vomiting - Labs Labs: 07/20/18 04:55 07/20/18 04:55 PT 17.7 Seconds (9.8-13.1) H 07/19/18 16:45 INR 1.5 07/19/18 16:45 APTT 33.5 Seconds (25.6-37.1) 07/19/18 16:45 Attending/Attestation - Attestation I have personally seen and examined this patient.: Yes I have fully participated in the care of the patient.: Yes I have reviewed all pertinent clinical information, including history, physical exam and plan: Yes Notes (Text): Acute Hypoxemic Respiratory Failure Pneumonia likely bacterial AMS prob Toxic Metabolic Encephalopathy History of CVA with Left Hemiparesis Dementia Troponin Elevation prob Demand ischemia from Hypoxia - Pt on Bipap - Pulm consult - cont IV Aztreonam and Azithro - Cardio consult -cont ASA -CT of HEad - Neurology consult -Lovenox for DVT proph -Palliative Care consult Pt is DNR /DNI, is the surrogate decision maker Discussed test results and treatment plan with and daughter Ya [phone]
[2018-07-20] MEDS: Enoxaparin 40 mg Syringe SC SCH (12:43)
--- NOTE | 2018-07-20 13:55 | CT ---
Date of service: 07/20/2018 PROCEDURE: CT HEAD WITHOUT CONTRAST. HISTORY: AMS, hx of CVA COMPARISON: None available. TECHNIQUE: Axial computed tomography images were obtained through the head/brain without intravenous contrast. Radiation dose: Total exam DLP = 1115.99 mGy-cm. This CT exam was performed using one or more of the following dose reduction techniques: Automated exposure control, adjustment of the mA and/or kV according to patient size, and/or use of iterative reconstruction technique. FINDINGS: HEMORRHAGE: No acute parenchymal, subarachnoid or extra-axial hemorrhage. BRAIN: Significant diffuse and confluent chronic white matter ischemic changes seen extending peripherally into the deep and subcortical white matter both cerebral hemispheres. In addition, more discrete chronic appearing infarcts also seen scattered about deep and subcortical white matter as well as both basal nuclei and probably the brainstem as well.. There may also be few chronic bilateral cerebellar lacunar type infarcts. Note the possibility of a small hyperacute infarct cannot be excluded based on this study clinical correlation recommended. Moderate fairly significant volume loss somewhat more central evidenced by mild disproportionate enlargement of the ventricles as compared sulci. Vascular calcifications both carotid siphons. VENTRICLES: No obstructive hydrocephalus CALVARIUM: Calvarium intact. PARANASAL SINUSES: Unremarkable as visualized. No significant inflammatory changes. MASTOID AIR CELLS: Unremarkable as visualized. No inflammatory changes. OTHER FINDINGS: Changes of bilateral cataract surgery again noted.. Degenerative changes both TM joints.. Mild moderate degenerative spondylosis upper cervical spine IMPRESSION: Significant chronic white matter ischemic changes. Multiple bilateral basal nuclei with suspected brainstem and cerebellar ischemic changes. Moderate to significant volume loss somewhat more central evidenced by disproportionate enlargement the ventricles as compared sulci
--- NOTE | 2018-07-20 15:24 | CP.PCM.CON ---
Past Patient History - Infectious Disease Hx of Infectious Diseases: None - Tetanus Immunizations Tetanus Immunization: Unknown - Past Medical History & Family History Past Medical History?: Yes - Past Social History Smoking Status: Former Smoker - CARDIAC Hx Cardiac Disorders: Yes Hx Hypercholesterolemia: Yes Hx Hypertension: Yes - PULMONARY Hx Respiratory Disorders: No - NEUROLOGICAL Hx Neurological Disorder: Yes Hx Alzheimer's Disease: Yes HX Cerebrovascular Accident: Yes (1986,2002 with left sided weakness) Hx Dementia: Yes - HEENT Hx HEENT Problems: No - RENAL Hx Chronic Kidney Disease: No - ENDOCRINE/METABOLIC Hx Endocrine Disorders: Yes Hx Diabetes Mellitus Type 2: Yes - HEMATOLOGICAL/ONCOLOGICAL Hx Blood Disorders: No - INTEGUMENTARY Hx Dermatological Problems: No - MUSCULOSKELETAL/RHEUMATOLOGICAL Hx Musculoskeletal Disorders: Yes Hx Arthritis: Yes (right knee with fluid removed 2 wks ago) Hx Falls: No - GASTROINTESTINAL Hx Gastrointestinal Disorders: No - GENITOURINARY/GYNECOLOGICAL Hx Genitourinary Disorders: Yes - PSYCHIATRIC Hx Psychophysiologic Disorder: No Hx Substance Use: No - SURGICAL HISTORY Hx Surgeries: Yes Hx Cataract Extraction: Yes (bilateral eyes) Hx Orthopedic Surgery: Yes (Right shoulder 10 years ago) Other/Comment: Prostate Surgery 2009, Gland surgery behind right ear - ANESTHESIA Hx Anesthesia: Yes Hx Anesthesia Reactions: No Hx Malignant Hyperthermia: No Has any member of the family had a problem w/ anesthesia?: No Meds Allergies/Adverse Reactions: Allergies Allergy/AdvReac Type Severity Reaction Status Date / Time Penicillins Allergy RASH Verified 07/19/18 15:31 - Medications Medications: Current Medications Acetaminophen (Tylenol 650 Mg Supp) 650 mg MD Q6 PRN PRN Reason: Fever >100.4 F Acetylcysteine (Acetylcysteine 20%) 2 ml INH RBID [facility] Last Admin: 07/20/18 08:04 Dose: 2 ml Albuterol/Ipratropium (Duoneb 3 Mg/0.5 Mg (3 Ml) Ud) 3 ml INH Q4 [facility] Last Admin: 07/20/18 11:28 Dose: 3 ml Aspirin (Aspirin Supp) 300 mg MD DAILY [facility] Atorvastatin Calcium (Lipitor) 20 mg PO HS ALVERTO Enoxaparin Sodium (Lovenox) 40 mg SC DAILY [facility]; Protocol Last Admin: 07/20/18 12:43 Dose: 40 mg Famotidine (Pepcid) 40 mg IVP DAILY [facility] Last Admin: 05/29/19 11:48 Dose: 40 mg Aztreonam 1 gm/ Sodium (Chloride) 100 mls @ 100 mls/hr IVPB Q8 [facility]; Protocol Last Admin: 07/20/18 09:49 Dose: 100 mls/hr Azithromycin 500 mg/ Sodium (Chloride) 250 mls @ 250 mls/hr IVPB DAILY [facility]; Protocol Last Admin: 07/20/18 09:48 Dose: 250 mls/hr Metoprolol Tartrate (Lopressor) 25 mg PO BID ALVERTO Last Admin: 07/20/18 10:07 Dose: Not Given Ondansetron HCl (Zofran Inj) 4 mg IVP Q6 PRN PRN Reason: Nausea/Vomiting Results - Vital Signs Recent Vital Signs: Last Vital Signs Temp 98.2 F 07/20/18 12:19 Pulse 103 H 07/20/18 12:19 Resp 18 07/20/18 12:19 BP 144/83 07/20/18 12:19 Pulse Ox 97 07/20/18 12:19 - Labs Result Diagrams: 07/20/18 04:55 07/20/18 04:55 Labs: Laboratory Results - last 24 hr 07/19/18 07/19/18 07/19/18 15:32 15:59 16:09 WBC RBC Hgb Hct MCV MCH MCHC RDW Plt Count MPV Neut % (Auto) Lymph % (Auto) [place] % (Auto) Eos % (Auto) Baso % (Auto) Neut # (Auto) Lymph # (Auto) [place] # (Auto) Eos # (Auto) Baso # (Auto) Neutrophils % (Manual) Band Neutrophils % Lymphocytes % (Manual) Monocytes % (Manual) Platelet Estimate Large Platelets Anisocytosis (manual) Ovalocytes PT INR APTT pCO2 47 H pO2 72 L HCO3 29.4 H ABG pH 7.43 ABG Total CO2 32.6 H ABG O2 Saturation 97.9 ABG O2 Content ABG Base Excess 5.8 H ABG Hemoglobin ABG Carboxyhemoglobin POC ABG HHb (Measured) ABG Methemoglobin ABG O2 Capacity [place] Test Yes ABG Potassium 4.1 A-a O2 Difference 582.0 Hgb O2 Saturation Sodium 144.0 Chloride 109.0 H Glucose 126 H Lactate 1.7 Vent Mode Bipap Mechanical Rate 12 FiO2 100.0 Inspiratory BiPAP 10 Expiratory BiPAP 5 Crit Value Called To Crit Value Called By Crit Value Read Back Blood Gas Notified Time Potassium Carbon Dioxide Anion Gap BUN Creatinine Est GFR ( Amer) Est GFR (Non-Af Amer) POC Glucose (mg/dL) 113 H 118 H Random Glucose Hemoglobin A1c Calcium Phosphorus Magnesium Total Bilirubin AST ALT Alkaline Phosphatase Troponin I Total Protein Albumin Globulin Albumin/Globulin Ratio Triglycerides Cholesterol LDL Cholesterol Direct HDL Cholesterol TSH 3rd Generation Arterial Blood Potassium 4.1 Urine Color Urine Clarity Urine pH Ur Specific [place] Urine Protein Urine Glucose (UA) Urine Ketones Urine Blood Urine Nitrate Urine Bilirubin Urine Urobilinogen Ur Leukocyte Esterase Urine RBC (Auto) Urine Microscopic WBC Ur Squamous Epith Cells Hyaline Casts Influenza Typ A,B (EIA) 07/19/18 07/19/18 07/19/18 16:21 16:35 16:45 WBC 11.4 H RBC 5.86 Hgb 14.3 D Hct 44.6 MCV 76.2 L MCH 24.4 L MCHC 32.0 L RDW 18.9 H Plt Count 332 D MPV 9.8 Neut % (Auto) 86.7 H Lymph % (Auto) 7.8 L [place] % (Auto) 5.1 Eos % (Auto) 0.0 Baso % (Auto) 0.4 Neut # (Auto) 9.9 H Lymph # (Auto) 0.9 L [place] # (Auto) 0.6 Eos # (Auto) 0.0 Baso # (Auto) 0.0 Neutrophils % (Manual) 79 H Band Neutrophils % 6 H Lymphocytes % (Manual) 11 L Monocytes % (Manual) 4 Platelet Estimate Normal Large Platelets Present Anisocytosis (manual) Slight Ovalocytes Slight PT INR APTT pCO2 pO2 HCO3 ABG pH ABG Total CO2 ABG O2 Saturation ABG O2 Content ABG Base Excess ABG Hemoglobin ABG Carboxyhemoglobin POC ABG HHb (Measured) ABG Methemoglobin ABG O2 Capacity [place] Test ABG Potassium A-a O2 Difference Hgb O2 Saturation Sodium Chloride Glucose Lactate Vent Mode Mechanical Rate FiO2 Inspiratory BiPAP Expiratory BiPAP Crit Value Called To Crit Value Called By Crit Value Read Back Blood Gas Notified Time Potassium Carbon Dioxide Anion Gap BUN Creatinine Est GFR ( Amer) Est GFR (Non-Af Amer) POC Glucose (mg/dL) Random Glucose Hemoglobin A1c Calcium Phosphorus Magnesium Total Bilirubin AST ALT Alkaline Phosphatase Troponin I Total Protein Albumin Globulin Albumin/Globulin Ratio Triglycerides Cholesterol LDL Cholesterol Direct HDL Cholesterol TSH 3rd Generation Arterial Blood Potassium Urine Color [place] Urine Clarity Slighty-cloudy Urine pH 5.0 Ur Specific [place] 1.025 Urine Protein 30 Urine Glucose (UA) Neg Urine Ketones Negative Urine Blood Negative Urine Nitrate Negative Urine Bilirubin Negative Urine Urobilinogen 0.2-1.0 Ur Leukocyte Esterase Small Urine RBC (Auto) 27 H Urine Microscopic WBC 8 H Ur Squamous Epith Cells < 1 Hyaline Casts 6-10 H Influenza Typ A,B (EIA) Negative for flu a/b 07/19/18 07/19/18 07/19/18 16:45 16:45 21:00 WBC RBC Hgb Hct MCV MCH MCHC RDW Plt Count MPV Neut % (Auto) Lymph % (Auto) [place] % (Auto) Eos % (Auto) Baso % (Auto) Neut # (Auto) Lymph # (Auto) [place] # (Auto) Eos # (Auto) Baso # (Auto) Neutrophils % (Manual) Band Neutrophils % Lymphocytes % (Manual) Monocytes % (Manual) Platelet Estimate Large Platelets Anisocytosis (manual) Ovalocytes PT 17.7 H INR 1.5 APTT 33.5 pCO2 pO2 HCO3 ABG pH ABG Total CO2 ABG O2 Saturation ABG O2 Content ABG Base Excess ABG Hemoglobin ABG Carboxyhemoglobin POC ABG HHb (Measured) ABG Methemoglobin ABG O2 Capacity [place] Test ABG Potassium A-a O2 Difference Hgb O2 Saturation Sodium 145 Chloride 103 Glucose Lactate Vent Mode Mechanical Rate FiO2 Inspiratory BiPAP Expiratory BiPAP Crit Value Called To Crit Value Called By Crit Value Read Back Blood Gas Notified Time Potassium 4.3 Carbon Dioxide 32 H Anion Gap 14 BUN 49 H Creatinine 1.3 Est GFR ( Amer) > 60 Est GFR (Non-Af Amer) 53 POC Glucose (mg/dL) Random Glucose 118 H Hemoglobin A1c Calcium 10.3 H Phosphorus 4.7 H Magnesium 2.2 Total Bilirubin 0.6 AST 37 ALT 28 Alkaline Phosphatase 93 Troponin I 0.0890 Total Protein 7.4 Albumin 3.4 L Globulin 4.0 H Albumin/Globulin Ratio 0.9 L Triglycerides Cholesterol LDL Cholesterol Direct HDL Cholesterol TSH 3rd Generation Arterial Blood Potassium Urine Color Urine Clarity Urine pH Ur Specific [place] Urine Protein Urine Glucose (UA) Urine Ketones Urine Blood Urine Nitrate Urine Bilirubin Urine Urobilinogen Ur Leukocyte Esterase Urine RBC (Auto) Urine Microscopic WBC Ur Squamous Epith Cells Hyaline Casts Influenza Typ A,B (EIA) 07/19/18 07/20/18 07/20/18 21:32 04:39 04:55 WBC 9.2 RBC 5.10 Hgb 12.3 D Hct 39.5 MCV 77.4 L MCH 24.2 L MCHC 31.2 L RDW 18.7 H Plt Count 274 MPV 9.9 Neut % (Auto) 84.7 H Lymph % (Auto) 8.9 L [place] % (Auto) 6.3 Eos % (Auto) 0.0 Baso % (Auto) 0.1 Neut # (Auto) 7.8 H Lymph # (Auto) 0.8 L [place] # (Auto) 0.6 Eos # (Auto) 0.0 Baso # (Auto) 0.0 Neutrophils % (Manual) Band Neutrophils % Lymphocytes % (Manual) Monocytes % (Manual) Platelet Estimate Large Platelets Anisocytosis (manual) Ovalocytes PT INR APTT pCO2 pO2 HCO3 ABG pH ABG Total CO2 ABG O2 Saturation ABG O2 Content ABG Base Excess ABG Hemoglobin ABG Carboxyhemoglobin POC ABG HHb (Measured) ABG Methemoglobin ABG O2 Capacity [place] Test ABG Potassium A-a O2 Difference Hgb O2 Saturation Sodium Chloride Glucose Lactate Vent Mode Mechanical Rate FiO2 Inspiratory BiPAP Expiratory BiPAP Crit Value Called To Crit Value Called By Crit Value Read Back Blood Gas Notified Time Potassium Carbon Dioxide Anion Gap BUN Creatinine Est GFR ( Amer) Est GFR (Non-Af Amer) POC Glucose (mg/dL) 137 H 165 H Random Glucose Hemoglobin A1c Calcium Phosphorus Magnesium Total Bilirubin AST ALT Alkaline Phosphatase Troponin I Total Protein Albumin Globulin Albumin/Globulin Ratio Triglycerides Cholesterol LDL Cholesterol Direct HDL Cholesterol TSH 3rd Generation Arterial Blood Potassium Urine Color Urine Clarity Urine pH Ur Specific [place] Urine Protein Urine Glucose (UA) Urine Ketones Urine Blood Urine Nitrate Urine Bilirubin Urine Urobilinogen Ur Leukocyte Esterase Urine RBC (Auto) Urine Microscopic WBC Ur Squamous Epith Cells Hyaline Casts Influenza Typ A,B (EIA) 07/20/18 07/20/18 07/20/18 04:55 04:55 04:55 WBC RBC Hgb Hct MCV MCH MCHC RDW Plt Count MPV Neut % (Auto) Lymph % (Auto) [place] % (Auto) Eos % (Auto) Baso % (Auto) Neut # (Auto) Lymph # (Auto) [place] # (Auto) Eos # (Auto) Baso # (Auto) Neutrophils % (Manual) Band Neutrophils % Lymphocytes % (Manual) Monocytes % (Manual) Platelet Estimate Large Platelets Anisocytosis (manual) Ovalocytes PT INR APTT pCO2 45 pO2 73 L HCO3 28.6 H ABG pH 7.43 ABG Total CO2 31.3 H ABG O2 Saturation 96.4 ABG O2 Content 16.8 ABG Base Excess 4.8 H ABG Hemoglobin 12.8 ABG Carboxyhemoglobin 1.5 POC ABG HHb (Measured) 3.5 ABG Methemoglobin 1.8 ABG O2 Capacity 17.4 [place] Test Yes ABG Potassium A-a O2 Difference 441.0 Hgb O2 Saturation 93.2 L Sodium 146 Chloride 107 Glucose Lactate Vent Mode Bipap Mechanical Rate 12 FiO2 80.0 Inspiratory BiPAP 10 Expiratory BiPAP 5 Crit Value Called To Yvette cortez rn Crit Value Called By 333 Crit Value Read Back Y Blood Gas Notified Time 500 Potassium 4.0 Carbon Dioxide 33 H Anion Gap 10 BUN 51 H Creatinine 1.2 Est GFR ( Amer) > 60 Est GFR (Non-Af Amer) 58 POC Glucose (mg/dL) Random Glucose 162 H Hemoglobin A1c 6.4 Calcium 9.2 Phosphorus Magnesium Total Bilirubin 0.5 AST 44 ALT 29 Alkaline Phosphatase 75 Troponin I 0.1490 H* Total Protein 6.3 Albumin 2.8 L Globulin 3.5 Albumin/Globulin Ratio 0.8 L Triglycerides 101 Cholesterol 86 LDL Cholesterol Direct 32 HDL Cholesterol 23 L TSH 3rd Generation 0.99 Arterial Blood Potassium Urine Color Urine Clarity Urine pH Ur Specific [place] Urine Protein Urine Glucose (UA) Urine Ketones Urine Blood Urine Nitrate Urine Bilirubin Urine Urobilinogen Ur Leukocyte Esterase Urine RBC (Auto) Urine Microscopic WBC Ur Squamous Epith Cells Hyaline Casts Influenza Typ A,B (EIA) 07/20/18 07/20/18 07/20/18 09:00 11:14 11:45 WBC RBC Hgb Hct MCV MCH MCHC RDW Plt Count MPV Neut % (Auto) Lymph % (Auto) [place] % (Auto) Eos % (Auto) Baso % (Auto) Neut # (Auto) Lymph # (Auto) [place] # (Auto) Eos # (Auto) Baso # (Auto) Neutrophils % (Manual) Band Neutrophils % Lymphocytes % (Manual) Monocytes % (Manual) Platelet Estimate Large Platelets Anisocytosis (manual) Ovalocytes PT INR APTT pCO2 45 pO2 73 L HCO3 28.6 H ABG pH 7.43 ABG Total CO2 31.3 H ABG O2 Saturation 96.4 ABG O2 Content 16.8 ABG Base Excess 4.8 H ABG Hemoglobin 12.8 ABG Carboxyhemoglobin 1.5 POC ABG HHb (Measured) 3.5 ABG Methemoglobin 1.8 ABG O2 Capacity 17.4 [place] Test Yes ABG Potassium A-a O2 Difference 441.0 Hgb O2 Saturation 93.2 L Sodium Chloride Glucose Lactate Vent Mode Mechanical Rate FiO2 80.0 Inspiratory BiPAP Expiratory BiPAP Crit Value Called To Crit Value Called By Crit Value Read Back Blood Gas Notified Time Potassium Carbon Dioxide Anion Gap BUN Creatinine Est GFR ( Amer) Est GFR (Non-Af Amer) POC Glucose (mg/dL) 143 H Random Glucose Hemoglobin A1c Calcium Phosphorus Magnesium Total Bilirubin AST ALT Alkaline Phosphatase Troponin I 0.1140 Total Protein Albumin Globulin Albumin/Globulin Ratio Triglycerides Cholesterol LDL Cholesterol Direct HDL Cholesterol TSH 3rd Generation Arterial Blood Potassium Urine Color Urine Clarity Urine pH Ur Specific [place] Urine Protein Urine Glucose (UA) Urine Ketones Urine Blood Urine Nitrate Urine Bilirubin Urine Urobilinogen Ur Leukocyte Esterase Urine RBC (Auto) Urine Microscopic WBC Ur Squamous Epith Cells Hyaline Casts Influenza Typ A,B (EIA)
--- NOTE | 2018-07-20 15:50 | CP.PCM.CON ---
History of Present Illness - History of Present Illness History of Present Illness: Neurology Consultation Note: Consult requested by Dr. 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 CT head was obtained and showed diffuse ischemic changes and prior infarcts. Neurology was consulted for the aforementioned findings. Review of Systems - Review of Systems Systems not reviewed;Unavailable: Dementia Past Patient History - Infectious Disease Hx of Infectious Diseases: None - Tetanus Immunizations Tetanus Immunization: Unknown - Past Medical History & Family History Past Medical History?: Yes - Past Social History Smoking Status: Former Smoker - CARDIAC Hx Cardiac Disorders: Yes Hx Hypercholesterolemia: Yes Hx Hypertension: Yes - PULMONARY Hx Respiratory Disorders: No - NEUROLOGICAL Hx Neurological Disorder: Yes Hx Alzheimer's Disease: Yes HX Cerebrovascular Accident: Yes (1986,2002 with left sided weakness) Hx Dementia: Yes - HEENT Hx HEENT Problems: No - RENAL Hx Chronic Kidney Disease: No - ENDOCRINE/METABOLIC Hx Endocrine Disorders: Yes Hx Diabetes Mellitus Type 2: Yes - HEMATOLOGICAL/ONCOLOGICAL Hx Blood Disorders: No - INTEGUMENTARY Hx Dermatological Problems: No - MUSCULOSKELETAL/RHEUMATOLOGICAL Hx Musculoskeletal Disorders: Yes Hx Arthritis: Yes (right knee with fluid removed 2 wks ago) Hx Falls: No - GASTROINTESTINAL Hx Gastrointestinal Disorders: No - GENITOURINARY/GYNECOLOGICAL Hx Genitourinary Disorders: Yes - PSYCHIATRIC Hx Psychophysiologic Disorder: No Hx Substance Use: No - SURGICAL HISTORY Hx Surgeries: Yes Hx Cataract Extraction: Yes (bilateral eyes) Hx Orthopedic Surgery: Yes (Right shoulder 10 years ago) Other/Comment: Prostate Surgery 2008, Gland surgery behind right ear - ANESTHESIA Hx Anesthesia: Yes Hx Anesthesia Reactions: No Hx Malignant Hyperthermia: No Has any member of the family had a problem w/ anesthesia?: No Meds Allergies/Adverse Reactions: Allergies Allergy/AdvReac Type Severity Reaction Status Date / Time Penicillins Allergy RASH Verified 07/19/18 15:31 - Medications Medications: Current Medications Acetaminophen (Tylenol 650 Mg Supp) [address] Q6 PRN PRN Reason: Fever >100.4 F Acetylcysteine (Acetylcysteine 20%) 2 ml INH RBID ALVERTO Last Admin: 07/20/18 08:04 Dose: 2 ml Albuterol/Ipratropium (Duoneb 3 Mg/0.5 Mg (3 Ml) Ud) 3 ml INH Q4 [facility] [place] Last Admin: 07/20/18 15:36 Dose: 3 ml Aspirin (Aspirin Supp) [address] DAILY [facility] Atorvastatin Calcium (Lipitor) 20 mg PO HS ALVERTO Enoxaparin Sodium (Lovenox) 40 mg SC DAILY [facility] [place]; Protocol Last Admin: 07/20/18 12:43 Dose: 40 mg Famotidine (Pepcid) 40 mg IVP DAILY [facility] [place] Last Admin: 07/20/18 11:48 Dose: 40 mg Aztreonam 1 gm/ Sodium (Chloride) 100 mls @ 100 mls/hr IVPB Q8 [facility] [place]; Protocol Last Admin: 07/20/18 09:49 Dose: 100 mls/hr Azithromycin 500 mg/ Sodium (Chloride) 250 mls @ 250 mls/hr IVPB DAILY [facility] [place]; Protocol Last Admin: 07/20/18 09:48 Dose: 250 mls/hr Metoprolol Tartrate (Lopressor) 25 mg PO BID [facility] [place] Last Admin: 07/20/18 10:07 Dose: Not Given Ondansetron HCl (Zofran Inj) 4 mg IVP Q6 PRN PRN Reason: Nausea/Vomiting Physical Exam - Constitutional Appears: Well, Confused - Head Exam Head Exam: ATRAUMATIC, NORMAL INSPECTION, NORMOCEPHALIC - Eye Exam Eye Exam: EOMI, Normal appearance, PERRL Pupil Exam: NORMAL ACCOMODATION, PERRL - ENT Exam ENT Exam: Mucous Membranes Moist, Normal Exam - Neck Exam Neck exam: Positive for: Normal Inspection - Respiratory Exam Respiratory Exam: Rales, Rhonchi, Wheezes - Cardiovascular Exam Cardiovascular Exam: REGULAR RHYTHM, +S1, +S2 - GI/Abdominal Exam GI & Abdominal Exam: Normal Bowel Sounds, Soft. absent: Tenderness - Extremities Exam Extremities exam: Positive for: normal inspection - Back Exam Back exam: NORMAL INSPECTION - Neurological Exam Neurological exam: Altered, CN II-XII Intact Additional comments: Confused, difficult to arouse, withdraws to pain. Left side hemiplegia, reflexes brisk throughout with upgoing plantar responses. - Psychiatric Exam Psychiatric exam: Normal Affect, Normal Mood - Skin Skin Exam: Dry, Intact, Normal Color, Warm Results - Vital Signs Recent Vital Signs: Last Vital Signs Temp 98.2 F 07/20/18 12:19 Pulse 93 H 07/20/18 15:42 Resp 18 07/20/18 12:19 BP 144/83 07/20/18 12:19 Pulse Ox 97 07/20/18 12:19 - Labs Result Diagrams: 07/20/18 04:55 07/20/18 04:55 Labs: Laboratory Results - last 24 hr 07/19/18 07/19/18 07/19/18 15:59 16:09 16:21 WBC RBC Hgb Hct MCV MCH MCHC RDW Plt Count MPV Neut % (Auto) Lymph % (Auto) [place] % (Auto) Eos % (Auto) Baso % (Auto) Neut # (Auto) Lymph # (Auto) [place] # (Auto) Eos # (Auto) Baso # (Auto) Neutrophils % (Manual) Band Neutrophils % Lymphocytes % (Manual) Monocytes % (Manual) Platelet Estimate Large Platelets Anisocytosis (manual) Ovalocytes PT INR APTT pCO2 47 H pO2 72 L HCO3 29.4 H ABG pH 7.43 ABG Total CO2 32.6 H ABG O2 Saturation 97.9 ABG O2 Content ABG Base Excess 5.8 H ABG Hemoglobin ABG Carboxyhemoglobin POC ABG HHb (Measured) ABG Methemoglobin ABG O2 Capacity Ryland Test Yes ABG Potassium 4.1 A-a O2 Difference 582.0 Hgb O2 Saturation Sodium 144.0 Chloride 109.0 H Glucose 126 H Lactate 1.7 Vent Mode Bipap Mechanical Rate 12 FiO2 100.0 Inspiratory BiPAP 10 Expiratory BiPAP 5 Crit Value Called To Crit Value Called By Crit Value Read Back Blood Gas Notified Time Potassium Carbon Dioxide Anion Gap BUN Creatinine Est GFR ( Amer) Est GFR (Non-Af Amer) POC Glucose (mg/dL) 118 H Random Glucose Hemoglobin A1c Calcium Phosphorus Magnesium Total Bilirubin AST ALT Alkaline Phosphatase Troponin I Total Protein Albumin Globulin Albumin/Globulin Ratio Triglycerides Cholesterol LDL Cholesterol Direct HDL Cholesterol TSH 3rd Generation Arterial Blood Potassium 4.1 Urine Color Urine Clarity Urine pH Ur Specific [place] Urine Protein Urine Glucose (UA) Urine Ketones Urine Blood Urine Nitrate Urine Bilirubin Urine Urobilinogen Ur Leukocyte Esterase Urine RBC (Auto) Urine Microscopic WBC Ur Squamous Epith Cells Hyaline Casts Influenza Typ A,B (EIA) Negative for flu a/b 07/19/18 07/19/18 07/19/18 16:35 16:45 16:45 WBC 11.4 H RBC 5.86 Hgb 14.3 D Hct 44.6 MCV 76.2 L MCH 24.4 L MCHC 32.0 L RDW 18.9 H Plt Count 332 D MPV 9.8 Neut % (Auto) 86.7 H Lymph % (Auto) 7.8 L [place] % (Auto) 5.1 Eos % (Auto) 0.0 Baso % (Auto) 0.4 Neut # (Auto) 9.9 H Lymph # (Auto) 0.9 L [place] # (Auto) 0.6 Eos # (Auto) 0.0 Baso # (Auto) 0.0 Neutrophils % (Manual) 79 H Band Neutrophils % 6 H Lymphocytes % (Manual) 11 L Monocytes % (Manual) 4 Platelet Estimate Normal Large Platelets Present Anisocytosis (manual) Slight Ovalocytes Slight PT INR APTT pCO2 pO2 HCO3 ABG pH ABG Total CO2 ABG O2 Saturation ABG O2 Content ABG Base Excess ABG Hemoglobin ABG Carboxyhemoglobin POC ABG HHb (Measured) ABG Methemoglobin ABG O2 Capacity R[place] Test ABG Potassium A-a O2 Difference Hgb O2 Saturation Sodium 145 Chloride 103 Glucose Lactate Vent Mode Mechanical Rate FiO2 Inspiratory BiPAP Expiratory BiPAP Crit Value Called To Crit Value Called By Crit Value Read Back Blood Gas Notified Time Potassium 4.3 Carbon Dioxide 32 H Anion Gap 14 BUN 49 H Creatinine 1.3 Est GFR ( Amer) > 60 Est GFR (Non-Af Amer) 53 POC Glucose (mg/dL) Random Glucose 118 H Hemoglobin A1c Calcium 10.3 H Phosphorus 4.7 H Magnesium 2.2 Total Bilirubin 0.6 AST 37 ALT 28 Alkaline Phosphatase 93 Troponin I Total Protein 7.4 Albumin 3.4 L Globulin 4.0 H Albumin/Globulin Ratio 0.9 L Triglycerides Cholesterol LDL Cholesterol Direct HDL Cholesterol TSH 3rd Generation Arterial Blood Potassium Urine Color Cheryle Urine Clarity Slighty-cloudy Urine pH 5.0 Ur Specific [place] 1.025 Urine Protein 30 Urine Glucose (UA) Neg Urine Ketones Negative Urine Blood Negative Urine Nitrate Negative Urine Bilirubin Negative Urine Urobilinogen 0.2-1.0 Ur Leukocyte Esterase Small Urine RBC (Auto) 27 H Urine Microscopic WBC 8 H Ur Squamous Epith Cells < 1 Hyaline Casts 6-10 H Influenza Typ A,B (EIA) 07/19/18 07/19/18 07/19/18 16:45 21:00 21:32 WBC RBC Hgb Hct MCV MCH MCHC RDW Plt Count MPV Neut % (Auto) Lymph % (Auto) [place] % (Auto) Eos % (Auto) Baso % (Auto) Neut # (Auto) Lymph # (Auto) [place] # (Auto) Eos # (Auto) Baso # (Auto) Neutrophils % (Manual) Band Neutrophils % Lymphocytes % (Manual) Monocytes % (Manual) Platelet Estimate Large Platelets Anisocytosis (manual) Ovalocytes PT 17.7 H INR 1.5 APTT 33.5 pCO2 pO2 HCO3 ABG pH ABG Total CO2 ABG O2 Saturation ABG O2 Content ABG Base Excess ABG Hemoglobin ABG Carboxyhemoglobin POC ABG HHb (Measured) ABG Methemoglobin ABG O2 Capacity [place] Test ABG Potassium A-a O2 Difference Hgb O2 Saturation Sodium Chloride Glucose Lactate Vent Mode Mechanical Rate FiO2 Inspiratory BiPAP Expiratory BiPAP Crit Value Called To Crit Value Called By Crit Value Read Back Blood Gas Notified Time Potassium Carbon Dioxide Anion Gap BUN Creatinine Est GFR ( Amer) Est GFR (Non-Af Amer) POC Glucose (mg/dL) 137 H Random Glucose Hemoglobin A1c Calcium Phosphorus Magnesium Total Bilirubin AST ALT Alkaline Phosphatase Troponin I 0.0890 Total Protein Albumin Globulin Albumin/Globulin Ratio Triglycerides Cholesterol LDL Cholesterol Direct HDL Cholesterol TSH 3rd Generation Arterial Blood Potassium Urine Color Urine Clarity Urine pH Ur Specific [place] Urine Protein Urine Glucose (UA) Urine Ketones Urine Blood Urine Nitrate Urine Bilirubin Urine Urobilinogen Ur Leukocyte Esterase Urine RBC (Auto) Urine Microscopic WBC Ur Squamous Epith Cells Hyaline Casts Influenza Typ A,B (EIA) 07/20/18 07/20/18 07/20/18 04:39 04:55 04:55 WBC 9.2 RBC 5.10 Hgb 12.3 D Hct 39.5 MCV 77.4 L MCH 24.2 L MCHC 31.2 L RDW 18.7 H Plt Count 274 MPV 9.9 Neut % (Auto) 84.7 H Lymph % (Auto) 8.9 L [place] % (Auto) 6.3 Eos % (Auto) 0.0 Baso % (Auto) 0.1 Neut # (Auto) 7.8 H Lymph # (Auto) 0.8 L [place] # (Auto) 0.6 Eos # (Auto) 0.0 Baso # (Auto) 0.0 Neutrophils % (Manual) Band Neutrophils % Lymphocytes % (Manual) Monocytes % (Manual) Platelet Estimate Large Platelets Anisocytosis (manual) Ovalocytes PT INR APTT pCO2 pO2 HCO3 ABG pH ABG Total CO2 ABG O2 Saturation ABG O2 Content ABG Base Excess ABG Hemoglobin ABG Carboxyhemoglobin POC ABG HHb (Measured) ABG Methemoglobin ABG O2 Capacity Ryland Test ABG Potassium A-a O2 Difference Hgb O2 Saturation Sodium 146 Chloride 107 Glucose Lactate Vent Mode Mechanical Rate FiO2 Inspiratory BiPAP Expiratory BiPAP Crit Value Called To Crit Value Called By Crit Value Read Back Blood Gas Notified Time Potassium 4.0 Carbon Dioxide 33 H Anion Gap 10 BUN 51 H Creatinine 1.2 Est GFR ( Amer) > 60 Est GFR (Non-Af Amer) 58 POC Glucose (mg/dL) 165 H Random Glucose 162 H Hemoglobin A1c Calcium 9.2 Phosphorus Magnesium Total Bilirubin 0.5 AST 44 ALT 29 Alkaline Phosphatase 75 Troponin I 0.1490 H* Total Protein 6.3 Albumin 2.8 L Globulin 3.5 Albumin/Globulin Ratio 0.8 L Triglycerides 101 Cholesterol 86 LDL Cholesterol Direct 32 HDL Cholesterol 23 L TSH 3rd Generation 0.99 Arterial Blood Potassium Urine Color Urine Clarity Urine pH Ur Specific [place] Urine Protein Urine Glucose (UA) Urine Ketones Urine Blood Urine Nitrate Urine Bilirubin Urine Urobilinogen Ur Leukocyte Esterase Urine RBC (Auto) Urine Microscopic WBC Ur Squamous Epith Cells Hyaline Casts Influenza Typ A,B (EIA) 07/20/18 07/20/18 07/20/18 04:55 04:55 09:00 WBC RBC Hgb Hct MCV MCH MCHC RDW Plt Count MPV Neut % (Auto) Lymph % (Auto) [place] % (Auto) Eos % (Auto) Baso % (Auto) Neut # (Auto) Lymph # (Auto) [place] # (Auto) Eos # (Auto) Baso # (Auto) Neutrophils % (Manual) Band Neutrophils % Lymphocytes % (Manual) Monocytes % (Manual) Platelet Estimate Large Platelets Anisocytosis (manual) Ovalocytes PT INR APTT pCO2 45 45 pO2 73 L 73 L HCO3 28.6 H 28.6 H ABG pH 7.43 7.43 ABG Total CO2 31.3 H 31.3 H ABG O2 Saturation 96.4 96.4 ABG O2 Content 16.8 16.8 ABG Base Excess 4.8 H 4.8 H ABG Hemoglobin 12.8 12.8 ABG Carboxyhemoglobin 1.5 1.5 POC ABG HHb (Measured) 3.5 3.5 ABG Methemoglobin 1.8 1.8 ABG O2 Capacity 17.4 17.4 Ryland Test Yes Yes ABG Potassium A-a O2 Difference 441.0 441.0 Hgb O2 Saturation 93.2 L 93.2 L Sodium Chloride Glucose Lactate Vent Mode Bipap Mechanical Rate 12 FiO2 80.0 80.0 Inspiratory BiPAP 10 Expiratory BiPAP 5 Crit Value Called To Yvette cortez rn Crit Value Called By 333 Crit Value Read Back Y Blood Gas Notified Time 500 Potassium Carbon Dioxide Anion Gap BUN Creatinine Est GFR ( Amer) Est GFR (Non-Af Amer) POC Glucose (mg/dL) Random Glucose Hemoglobin A1c 6.4 Calcium Phosphorus Magnesium Total Bilirubin AST ALT Alkaline Phosphatase Troponin I Total Protein Albumin Globulin Albumin/Globulin Ratio Triglycerides Cholesterol LDL Cholesterol Direct HDL Cholesterol TSH 3rd Generation Arterial Blood Potassium Urine Color Urine Clarity Urine pH Ur Specific [place] Urine Protein Urine Glucose (UA) Urine Ketones Urine Blood Urine Nitrate Urine Bilirubin Urine Urobilinogen Ur Leukocyte Esterase Urine RBC (Auto) Urine Microscopic WBC Ur Squamous Epith Cells Hyaline Casts Influenza Typ A,B (EIA) 07/20/18 07/20/18 11:14 11:45 WBC RBC Hgb Hct MCV MCH MCHC RDW Plt Count MPV Neut % (Auto) Lymph % (Auto) [place] % (Auto) Eos % (Auto) Baso % (Auto) Neut # (Auto) Lymph # (Auto) [place] # (Auto) Eos # (Auto) Baso # (Auto) Neutrophils % (Manual) Band Neutrophils % Lymphocytes % (Manual) Monocytes % (Manual) Platelet Estimate Large Platelets Anisocytosis (manual) Ovalocytes PT INR APTT pCO2 pO2 HCO3 ABG pH ABG Total CO2 ABG O2 Saturation ABG O2 Content ABG Base Excess ABG Hemoglobin ABG Carboxyhemoglobin POC ABG HHb (Measured) ABG Methemoglobin ABG O2 Capacity Ryland Test ABG Potassium A-a O2 Difference Hgb O2 Saturation Sodium Chloride Glucose Lactate Vent Mode Mechanical Rate FiO2 Inspiratory BiPAP Expiratory BiPAP Crit Value Called To Crit Value Called By Crit Value Read Back Blood Gas Notified Time Potassium Carbon Dioxide Anion Gap BUN Creatinine Est GFR ( Amer) Est GFR (Non-Af Amer) POC Glucose (mg/dL) 143 H Random Glucose Hemoglobin A1c Calcium Phosphorus Magnesium Total Bilirubin AST ALT Alkaline Phosphatase Troponin I 0.1140 Total Protein Albumin Globulin Albumin/Globulin Ratio Triglycerides Cholesterol LDL Cholesterol Direct HDL Cholesterol TSH 3rd Generation Arterial Blood Potassium Urine Color Urine Clarity Urine pH Ur Specific [place] Urine Protein Urine Glucose (UA) Urine Ketones Urine Blood Urine Nitrate Urine Bilirubin Urine Urobilinogen Ur Leukocyte Esterase Urine RBC (Auto) Urine Microscopic WBC Ur Squamous Epith Cells Hyaline Casts Influenza Typ A,B (EIA) Assessment & Plan (1) Toxic metabolic encephalopathy Assessment and Plan: Likely infection superimposed on chronic advanced dementia that appears to be of vascular nature. Continue current management of medical causes of encephalopathy. Continue aspirin [address] daily and statin for secondary stroke prevention. Will order EEG to rule out subclinical status epilepticus. Thank you for this consultation. Status: Acute
[2018-07-20 21:06] LABS: ABG ALLEN TEST YES; ARTERIAL BLOOD GAS HCO3 27.8 mmol/L (21-28); ARTERIAL BLOOD GAS HEMOGLOBIN 13.3 g/dL (11.7-17.4); ARTERIAL BLOOD GAS O2 CAPACITY 18.1 mL/dL (16-24); ARTERIAL BLOOD GAS O2 CONTENT 17.9 ML/dL (15-23); ARTERIAL BLOOD GAS O2 SAT 98.7 % (95-98); ARTERIAL BLOOD GAS PCO2 49 mm/Hg (35-45); ARTERIAL BLOOD GAS PH 7.39 (7.35-7.45); ARTERIAL BLOOD GAS PO2 89 mm/Hg (80-100); ARTERIAL BLOOD GAS TCO2 31.2 mmol/L (22-28)
[2018-07-21] MEDS: Albuterol-Ipratrop 3 mg / 0.5 (3 ml) UD INH SCH ×2 (01:00→05:29)
[2018-07-21] MEDS: Aztreonam 1 GM in Sodium Chloride 0.9% 100 ML IVPB SCH ×3 (01:30→10:01)
[2018-07-21 05:16] VITALS: BP 133/77; RESP 18; TEMP 99.1
[2018-07-21 06:06] LABS: ABG ALLEN TEST YES; ARTERIAL BLOOD GAS HCO3 25.4 mmol/L (21-28); ARTERIAL BLOOD GAS O2 CAPACITY 18.9 mL/dL (16-24); ARTERIAL BLOOD GAS O2 CONTENT 17.9 ML/dL (15-23); ARTERIAL BLOOD GAS O2 SAT 94.5 % (95-98); ARTERIAL BLOOD GAS PCO2 91 mm/Hg (35-45); ARTERIAL BLOOD GAS PH 7.16 (7.35-7.45); ARTERIAL BLOOD GAS PO2 72 mm/Hg (80-100); ARTERIAL BLOOD GAS TCO2 35.2 mmol/L (22-28)
[2018-07-21 06:33] LABS: HEMOGLOBIN 13.3 g/dL (12.0-18.0); MEAN CELL VOLUME 78.4 fl (80.0-94.0); MEAN CORPUSCULAR HEMOGLOBIN 24.4 pg (27.0-31.0); MEAN CORPUSCULAR HGB CONC 31.1 g/dL (33.0-37.0); RBC 5.45 Mil/uL (4.40-5.90); RED CELL DISTRIBUTION WIDTH 18.9 % (11.5-14.5); WHITE BLOOD COUNT 20.7 K/uL (4.8-10.8)
[2018-07-21 06:39] LABS: CALCIUM 10.1 mg/dL (8.4-10.2)
[2018-07-21] MEDS ORDERED: Sodium Chloride 0.45% 1,000 ML IV SCH (07:00)
--- NOTE | 2018-07-21 07:43 | CP.PCM.PRO ---
Pronouncement of Note - Clinical Findings Physical Exam: No Response Verbal/Painful Stimuli, Absent Peripheral Puls es{Carotid & Femoral}, Absent Heart & Breath Sounds, No Pupillary Light Reflex, No Corneal Reflex, Pupils Fixed & Dilated, Absence of Vital Signs - Pronouncement Time Time of Pronouncement of : 07:40 - Notifications Pronouncement Notifications: Family Notified, Atending Notified Field Cane Scaler Helper Notified: No - Autopsy Autopsy Requested: No [place] [id number]
--- NOTE | 2018-07-21 07:51 | CP.PCM.DIS ---
Provider - Provider Date of Admission: 07/19/18 18:06 Attending physician: Katrina Hooper MD Consults: 07/19/18 20:49 Wound Care [Nursing Referral for Wound Care] Routine Comment: Physician Instructions: Reason For Exam: sacral redness 07/19/18 20:58 Nursing Referral for Palliative Care Routine Comment: Consulting Provider: Elaina Leon Physician Instructions: Reason For Exam: dnr/dni 07/20/18 07:57 Pulmonology Consult Routine Comment: Consulting Provider: Ld Ji Consulting Physician: Ld Ji Reason for Consult: acute hypoxemic respiratory failure, pna 07/20/18 07:58 Cardiology Consult Routine Comment: Consulting Provider: Nina Pride Consulting Physician: Nina Pride Reason for Consult: positive troponin in pt with acute hypoxemic respiratory failure 07/20/18 14:26 Neurology Consult Routine Comment: Consulting Provider: Bossman Hernandez Consulting Physician: Bossman Hernandez Reason for Consult: Lethargic and new findings on CT 07/20/18 17:56 Palliative Care Consult Routine Comment: Consulting Provider: Elaina Leon Physician Instructions: Reason For Exam: goal of care Time Spent in preparation of Discharge (in minutes): 30 Hospital Course - Lab Results Lab Results: Micro Results 07/19/18 17:00 Blood Blood Culture - Preliminary NO GROWTH AFTER 24 HOURS 07/19/18 16:45 Blood Blood Culture - Preliminary NO GROWTH AFTER 24 HOURS Most Recent Lab Values WBC 20.7 K/uL (4.8-10.8) H D 07/21/18 05:15 RBC 5.45 Mil/uL (4.40-5.90) 07/21/18 05:15 Hgb 13.3 g/dL (12.0-18.0) 07/21/18 05:15 Hct 42.7 % (35.0-51.0) 07/21/18 05:15 MCV 78.4 fl (80.0-94.0) L 07/21/18 05:15 MCH 24.4 pg (27.0-31.0) L 07/21/18 05:15 MCHC 31.1 g/dL (33.0-37.0) L 07/21/18 05:15 RDW 18.9 % (11.5-14.5) H 07/21/18 05:15 Plt Count 320 K/uL (130-400) 07/21/18 05:15 MPV 9.9 fl (7.2-11.7) 07/20/18 04:55 Neut % (Auto) 84.7 % (50.0-75.0) H 07/20/18 04:55 Lymph % (Auto) 8.9 % (20.0-40.0) L 07/20/18 04:55 [place] % (Auto) 6.3 % (0.0-10.0) 07/20/18 04:55 Eos % (Auto) 0.0 % (0.0-4.0) 07/20/18 04:55 Baso % (Auto) 0.1 % (0.0-2.0) 07/20/18 04:55 Neut # (Auto) 7.8 K/uL (1.8-7.0) H 07/20/18 04:55 Lymph # (Auto) 0.8 K/uL (1.0-4.3) L 07/20/18 04:55 [place] # (Auto) 0.6 K/uL (0.0-0.8) 07/20/18 04:55 Eos # (Auto) 0.0 K/uL (0.0-0.7) 07/20/18 04:55 Baso # (Auto) 0.0 K/uL (0.0-0.2) 07/20/18 04:55 Neutrophils % (Manual) 79 % (42-75) H 07/19/18 16:45 Band Neutrophils % 6 % (0-2) H 07/19/18 16:45 Lymphocytes % (Manual) 11 % (20-50) L 07/19/18 16:45 Monocytes % (Manual) 4 % (0-10) 07/19/18 16:45 Platelet Estimate Normal (NORMAL) 07/19/18 16:45 Large Platelets Present 07/19/18 16:45 Anisocytosis (manual) Slight 07/19/18 16:45 Ovalocytes Slight 07/19/18 16:45 PT 17.7 Seconds (9.8-13.1) H 07/19/18 16:45 INR 1.5 07/19/18 16:45 APTT 33.5 Seconds (25.6-37.1) 07/19/18 16:45 pCO2 91 mm/Hg (35-45) H* 07/21/18 05:46 pO2 72 mm/Hg (80-100) L 07/21/18 05:46 HCO3 25.4 mmol/L (21-28) 07/21/18 05:46 ABG pH 7.16 (7.35-7.45) L* 07/21/18 05:46 ABG Total CO2 35.2 mmol/L (22-28) H 07/21/18 05:46 ABG O2 Saturation 94.5 % (95-98) L 07/21/18 05:46 ABG O2 Content 17.9 ML/dL (15-23) 07/21/18 05:46 ABG Base Excess 0.8 mmol/L (-2.0-3.0) 07/21/18 05:46 ABG Hemoglobin 14.0 g/dL (11.7-17.4) 07/21/18 05:46 ABG Carboxyhemoglobin 2.1 % (0.5-1.5) H 07/21/18 05:46 POC ABG HHb (Measured) 5.3 % (0.0-5.0) H 07/21/18 05:46 ABG Methemoglobin 1.7 % (0.0-3.0) 07/21/18 05:46 ABG O2 Capacity 18.9 mL/dL (16-24) 07/21/18 05:46 Ryland Test Yes 07/21/18 05:46 ABG Potassium 4.1 mmol/L (3.6-5.2) 07/19/18 16:09 A-a O2 Difference 385.0 mm/Hg 07/21/18 05:46 Hgb O2 Saturation 90.9 % (95.0-98.0) L 07/21/18 05:46 Sodium 144.0 mmol/L (132-148) 07/19/18 16:09 Chloride 109.0 mmol/L (98-107) H 07/19/18 16:09 Glucose 126 mg/dL (75-110) H 07/19/18 16:09 Lactate 1.7 mmol/L (0.7-2.1) 07/19/18 16:09 Vent Mode Bipap 07/21/18 05:46 Mechanical Rate 18 07/21/18 05:46 FiO2 80.0 % 07/21/18 05:46 Inspiratory BiPAP 14 07/21/18 05:46 Expiratory BiPAP 5 07/21/18 05:46 Crit Value Called To Fermin escoto rn 07/21/18 05:46 Crit Value Called By Taras 07/21/18 05:46 Crit Value Read Back Y 07/21/18 05:46 Blood Gas Notified Time 600 07/21/18 05:46 Sodium 151 mmol/l (132-148) H 07/21/18 05:15 Potassium 4.2 MMOL/L (3.6-5.0) 07/21/18 05:15 Chloride 113 mmol/L (98-107) H 07/21/18 05:15 Carbon Dioxide 30 mmol/L (22-30) 07/21/18 05:15 Anion Gap 12 (10-20) 07/21/18 05:15 BUN 58 mg/dl (9-20) H 07/21/18 05:15 Creatinine 1.7 mg/dl (0.8-1.5) H 07/21/18 05:15 Est GFR ( Amer) 47 07/21/18 05:15 Est GFR (Non-Af Amer) 39 07/21/18 05:15 POC Glucose (mg/dL) 117 mg/dL (65-110) H 07/21/18 05:22 Random Glucose 118 mg/dL (75-110) H 07/21/18 05:15 Hemoglobin A1c 6.4 % (4.2-6.5) 07/20/18 04:55 Calcium 10.1 mg/dL (8.4-10.2) 07/21/18 05:15 Phosphorus 4.7 mg/dl (2.5-4.5) H 07/19/18 16:45 Magnesium 2.2 MG/DL (1.6-2.3) 07/19/18 16:45 Total Bilirubin 0.5 mg/dl (0.2-1.3) 07/20/18 04:55 AST 44 U/L (17-59) 07/20/18 04:55 ALT 29 U/L (21-72) 07/20/18 04:55 Alkaline Phosphatase 75 U/L (38-126) 07/20/18 04:55 Troponin I 0.1140 ng/mL (0.00-0.120) 07/20/18 11:45 Total Protein 6.3 G/DL (6.3-8.2) 07/20/18 04:55 Albumin 2.8 g/dL (3.5-5.0) L 07/20/18 04:55 Globulin 3.5 gm/dL (2.2-3.9) 07/20/18 04:55 Albumin/Globulin Ratio 0.8 (1.0-2.1) L 07/20/18 04:55 Triglycerides 101 mg/DL (0-149) 07/20/18 04:55 Cholesterol 86 mg/dL (0-199) 07/20/18 04:55 LDL Cholesterol Direct 32 mg/dL (0-129) 07/20/18 04:55 HDL Cholesterol 23 MG/DL (30-70) L 07/20/18 04:55 TSH 3rd Generation 0.99 mIU/ML (0.46-4.68) 07/20/18 04:55 Arterial Blood Potassium 4.1 mmol/L (3.6-5.2) 07/19/18 16:09 Urine Color Cheryle (YELLOW) 07/19/18 16:35 Urine Clarity Slighty-cloudy (Clear) 07/19/18 16:35 Urine pH 5.0 (5.0-8.0) 07/19/18 16:35 Ur Specific [place] 1.025 (1.003-1.030) 07/19/18 16:35 Urine Protein 30 mg/dL (NEGATIVE) 07/19/18 16:35 Urine Glucose (UA) Neg mg/dL (NEGATIVE) 07/19/18 16:35 Urine Ketones Negative mg/dL (NEGATIVE) 07/19/18 16:35 Urine Blood Negative (NEGATIVE) 07/19/18 16:35 Urine Nitrate Negative (NEGATIVE) 07/19/18 16:35 Urine Bilirubin Negative (NEGATIVE) 07/19/18 16:35 Urine Urobilinogen 0.2-1.0 mg/dL (0.2-1.0) 07/19/18 16:35 Ur Leukocyte Esterase Small [place]/uL (Negative) 07/19/18 16:35 Urine RBC (Auto) 27 /hpf (0-3) H 07/19/18 16:35 Urine Microscopic WBC 8 /hpf (0-5) H 07/19/18 16:35 Ur Squamous Epith Cells < 1 /hpf (0-5) 07/19/18 16:35 Hyaline Casts 6-10 /hpf (0-2) H 07/19/18 16:35 Influenza Typ A,B (EIA) Negative for flu a/b (NEGATIVE) 07/19/18 16:21 Discharge Exam - Head Exam Head Exam: ATRAUMATIC, NORMAL INSPECTION, NORMOCEPHALIC Discharge Plan - Follow Up Plan Condition: GOOD Disposition: HOME/ ROUTINE Referrals: July Sanders MD [Family Provider] -
[2018-07-21 09:22] LABS: ARTERIAL BLOOD GAS HCO3 28.2 mmol/L (21-28); ARTERIAL BLOOD GAS PCO2 71 mm/Hg (35-45); ARTERIAL BLOOD GAS PH 7.28 (7.35-7.45); ARTERIAL BLOOD GAS PO2 76 mm/Hg (80-100)
[2018-07-21 09:23] LABS: ARTERIAL BLOOD GAS HEMOGLOBIN 13.8 g/dL (11.7-17.4)
[2018-07-21 09:24] LABS: ARTERIAL BLOOD GAS O2 CAPACITY 18.8 mL/dL (16-24); ARTERIAL BLOOD GAS O2 CONTENT 18.1 ML/dL (15-23); ARTERIAL BLOOD GAS TCO2 35.6 mmol/L (22-28)
[2018-07-21 09:25] LABS: ARTERIAL BLOOD GAS O2 SAT 96.1 % (95-98)
[2018-07-21] MEDS: Enoxaparin 40 mg Syringe SC SCH (10:02)
[2018-07-21] MEDS: Azithromycin 500 MG in Sodium Chloride 0.9% 250 ML IVPB SCH (10:03)
--- NOTE | 2018-07-21 12:12 | CP.PCM.DIS ---
Provider - Provider Date of Admission: 07/19/18 18:06 Attending physician: Katrina Hooper MD Consults: 07/19/18 20:49 Wound Care [Nursing Referral for Wound Care] Routine Comment: Physician Instructions: Reason For Exam: sacral redness 07/19/18 20:58 Nursing Referral for Palliative Care Routine Comment: Consulting Provider: Elaina Leon Physician Instructions: Reason For Exam: dnr/dni 07/20/18 07:57 Pulmonology Consult Routine Comment: Consulting Provider: Ld Ji Consulting Physician: Ld Ji Reason for Consult: acute hypoxemic respiratory failure, pna 07/20/18 07:58 Cardiology Consult Routine Comment: Consulting Provider: Nina Pride Consulting Physician: Nina Pride Reason for Consult: positive troponin in pt with acute hypoxemic respiratory failure 07/20/18 14:26 Neurology Consult Routine Comment: Consulting Provider: Bossman Hernandez Consulting Physician: Bossman Hernandez Reason for Consult: Lethargic and new findings on CT 07/20/18 17:56 Palliative Care Consult Routine Comment: Consulting Provider: Elaina Leon Physician Instructions: Reason For Exam: goal of care Time Spent in preparation of Discharge (in minutes): 30 Diagnosis - Discharge Diagnosis (1) Acute hypoxemic respiratory failure Status: Acute Hospital Course - Lab Results Lab Results: Micro Results 07/19/18 14:35 Urine,[place] Urine Culture - Final No Growth (<1,000 CFU/ML) 07/19/18 17:00 Blood Blood Culture - Preliminary NO GROWTH AFTER 24 HOURS 07/19/18 16:45 Blood Blood Culture - Preliminary NO GROWTH AFTER 24 HOURS Most Recent Lab Values WBC 20.7 K/uL (4.8-10.8) H D 07/21/18 05:15 RBC 5.45 Mil/uL (4.40-5.90) 07/21/18 05:15 Hgb 13.3 g/dL (12.0-18.0) 07/21/18 05:15 Hct 42.7 % (35.0-51.0) 07/21/18 05:15 MCV 78.4 fl (80.0-94.0) L 07/21/18 05:15 MCH 24.4 pg (27.0-31.0) L 07/21/18 05:15 MCHC 31.1 g/dL (33.0-37.0) L 07/21/18 05:15 RDW 18.9 % (11.5-14.5) H 07/21/18 05:15 Plt Count 320 K/uL (130-400) 07/21/18 05:15 MPV 9.9 fl (7.2-11.7) 07/20/18 04:55 Neut % (Auto) 84.7 % (50.0-75.0) H 07/20/18 04:55 Lymph % (Auto) 8.9 % (20.0-40.0) L 07/20/18 04:55 [place] % (Auto) 6.3 % (0.0-10.0) 07/20/18 04:55 Eos % (Auto) 0.0 % (0.0-4.0) 07/20/18 04:55 Baso % (Auto) 0.1 % (0.0-2.0) 07/20/18 04:55 Neut # (Auto) 7.8 K/uL (1.8-7.0) H 07/20/18 04:55 Lymph # (Auto) 0.8 K/uL (1.0-4.3) L 07/20/18 04:55 [place] # (Auto) 0.6 K/uL (0.0-0.8) 07/20/18 04:55 Eos # (Auto) 0.0 K/uL (0.0-0.7) 07/20/18 04:55 Baso # (Auto) 0.0 K/uL (0.0-0.2) 07/20/18 04:55 Neutrophils % (Manual) 79 % (42-75) H 07/19/18 16:45 Band Neutrophils % 6 % (0-2) H 07/19/18 16:45 Lymphocytes % (Manual) 11 % (20-50) L 07/19/18 16:45 Monocytes % (Manual) 4 % (0-10) 07/19/18 16:45 Platelet Estimate Normal (NORMAL) 07/19/18 16:45 Large Platelets Present 07/19/18 16:45 Anisocytosis (manual) Slight 07/19/18 16:45 Ovalocytes Slight 07/19/18 16:45 PT 17.7 Seconds (9.8-13.1) H 07/19/18 16:45 INR 1.5 07/19/18 16:45 APTT 33.5 Seconds (25.6-37.1) 07/19/18 16:45 pCO2 91 mm/Hg (35-45) H* 07/21/18 05:46 pO2 72 mm/Hg (80-100) L 07/21/18 05:46 HCO3 25.4 mmol/L (21-28) 07/21/18 05:46 ABG pH 7.16 (7.35-7.45) L* 07/21/18 05:46 ABG Total CO2 35.2 mmol/L (22-28) H 07/21/18 05:46 ABG O2 Saturation 94.5 % (95-98) L 07/21/18 05:46 ABG O2 Content 17.9 ML/dL (15-23) 07/21/18 05:46 ABG Base Excess 0.8 mmol/L (-2.0-3.0) 07/21/18 05:46 ABG Hemoglobin 14.0 g/dL (11.7-17.4) 07/21/18 05:46 ABG Carboxyhemoglobin 2.1 % (0.5-1.5) H 07/21/18 05:46 POC ABG HHb (Measured) 5.3 % (0.0-5.0) H 07/21/18 05:46 ABG Methemoglobin 1.7 % (0.0-3.0) 07/21/18 05:46 ABG O2 Capacity 18.9 mL/dL (16-24) 07/21/18 05:46 [place] Test Yes 07/21/18 05:46 ABG Potassium 4.1 mmol/L (3.6-5.2) 07/19/18 16:09 A-a O2 Difference 385.0 mm/Hg 07/21/18 05:46 Hgb O2 Saturation 90.9 % (95.0-98.0) L 07/21/18 05:46 Sodium 144.0 mmol/L (132-148) 07/19/18 16:09 Chloride 109.0 mmol/L (98-107) H 07/19/18 16:09 Glucose 126 mg/dL (75-110) H 07/19/18 16:09 Lactate 1.7 mmol/L (0.7-2.1) 07/19/18 16:09 Vent Mode Bipap 07/21/18 05:46 Mechanical Rate 18 07/21/18 05:46 FiO2 80.0 % 07/21/18 05:46 Inspiratory BiPAP 14 07/21/18 05:46 Expiratory BiPAP 5 07/21/18 05:46 Crit Value Called To Fermin escoto rn 07/21/18 05:46 Crit Value Called By Taras 07/21/18 05:46 Crit Value Read Back Y 07/21/18 05:46 Blood Gas Notified Time 600 07/21/18 05:46 Sodium 151 mmol/l (132-148) H 07/21/18 05:15 Potassium 4.2 MMOL/L (3.6-5.0) 07/21/18 05:15 Chloride 113 mmol/L (98-107) H 07/21/18 05:15 Carbon Dioxide 30 mmol/L (22-30) 07/21/18 05:15 Anion Gap 12 (10-20) 07/21/18 05:15 BUN 58 mg/dl (9-20) H 07/21/18 05:15 Creatinine 1.7 mg/dl (0.8-1.5) H 07/21/18 05:15 Est GFR ( Amer) 47 07/21/18 05:15 Est GFR (Non-Af Amer) 39 07/21/18 05:15 POC Glucose (mg/dL) 117 mg/dL (65-110) H 07/21/18 05:22 Random Glucose 118 mg/dL (75-110) H 07/21/18 05:15 Hemoglobin A1c 6.4 % (4.2-6.5) 07/20/18 04:55 Calcium 10.1 mg/dL (8.4-10.2) 07/21/18 05:15 Phosphorus 4.7 mg/dl (2.5-4.5) H 07/19/18 16:45 Magnesium 2.2 MG/DL (1.6-2.3) 07/19/18 16:45 Total Bilirubin 0.5 mg/dl (0.2-1.3) 07/20/18 04:55 AST 44 U/L (17-59) 07/20/18 04:55 ALT 29 U/L (21-72) 07/20/18 04:55 Alkaline Phosphatase 75 U/L (38-126) 07/20/18 04:55 Troponin I 0.1140 ng/mL (0.00-0.120) 07/20/18 11:45 Total Protein 6.3 G/DL (6.3-8.2) 07/20/18 04:55 Albumin 2.8 g/dL (3.5-5.0) L 07/20/18 04:55 Globulin 3.5 gm/dL (2.2-3.9) 07/20/18 04:55 Albumin/Globulin Ratio 0.8 (1.0-2.1) L 07/20/18 04:55 Triglycerides 101 mg/DL (0-149) 07/20/18 04:55 Cholesterol 86 mg/dL (0-199) 07/20/18 04:55 LDL Cholesterol Direct 32 mg/dL (0-129) 07/20/18 04:55 HDL Cholesterol 23 MG/DL (30-70) L 07/20/18 04:55 TSH 3rd Generation 0.99 mIU/ML (0.46-4.68) 07/20/18 04:55 Arterial Blood Potassium 4.1 mmol/L (3.6-5.2) 07/19/18 16:09 Urine Color [place] (YELLOW) 07/19/18 16:35 Urine Clarity Slighty-cloudy (Clear) 07/19/18 16:35 Urine pH 5.0 (5.0-8.0) 07/19/18 16:35 Ur Specific [place] 1.025 (1.003-1.030) 07/19/18 16:35 Urine Protein 30 mg/dL (NEGATIVE) 07/19/18 16:35 Urine Glucose (UA) Neg mg/dL (NEGATIVE) 07/19/18 16:35 Urine Ketones Negative mg/dL (NEGATIVE) 07/19/18 16:35 Urine Blood Negative (NEGATIVE) 07/19/18 16:35 Urine Nitrate Negative (NEGATIVE) 07/19/18 16:35 Urine Bilirubin Negative (NEGATIVE) 07/19/18 16:35 Urine Urobilinogen 0.2-1.0 mg/dL (0.2-1.0) 07/19/18 16:35 Ur Leukocyte Esterase Small [place]/uL (Negative) 07/19/18 16:35 Urine RBC (Auto) 27 /hpf (0-3) H 07/19/18 16:35 Urine Microscopic WBC 8 /hpf (0-5) H 07/19/18 16:35 Ur Squamous Epith Cells < 1 /hpf (0-5) 07/19/18 16:35 Hyaline Casts 6-10 /hpf (0-2) H 07/19/18 16:35 Influenza Typ A,B (EIA) Negative for flu a/b (NEGATIVE) 07/19/18 16:21 - Hospital Course Hospital Course: 83 yo male, DNR/DNI, with history DM type II, Dementia, HTN, dyslipidemia , 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 Admitted for sepsis most likely secondary to pneumonia. Patient was on Aztreonam and Zithromycin for Pneumonia. Patient's respiratory status continued to deteriorate with appropriate BIPAP intervention. Patient 07/21/18 at 7:40 am. No corneal reflexes. No breath sounds, unresponsive to painful stimuli and no pulses present. Asystole on the telemonitor. Family was informed. Discharge Exam - Head Exam Head Exam: NORMAL INSPECTION, NORMOCEPHALIC - Eye Exam Additional comments: Fixed pupils bilaterally. - ENT Exam ENT Exam: Mucous Membranes Dry - Respiratory Exam Additional comments: No breath sounds bilaterally. - Cardiovascular Exam Additional comments: No heart sounds. No pulses present at radial or carotid. - GI/Abdominal Exam GI & Abdominal Exam: Unremarkable - Extremities Exam Additional comments: Cold extremities. - Neurological Exam Additional comments: Non-responsive. - Skin Skin Exam: Mottled Discharge Plan - Follow Up Plan Condition: Referrals: July Sanders MD [Family Provider] -
[2018-07-24 02:37] VITALS: PULSE 93; O2SAT 91
== END 2018-07-21 13:47 | DRG 871 ==
LOC: H.ER 15:27 → H.ERHOLD 18:06 → H.TEL 20:20
PROVIDERS: ADMIT Hospitalist; ATTEND Hospitalist
PROC: 5A09457 Assistance with Respiratory Ventilation, 24-96 Consecutive Hours, Continuous Positive Airway Pressure (ICD-10-PCS; principal; 2018-07-19)
DX: A41.9 Sepsis, unspecified organism (principal); J15.9 Unspecified bacterial pneumonia; J96.01 Acute respiratory failure with hypoxia; G92 Toxic encephalopathy; I69.354 Hemiplegia and hemiparesis following cerebral infarction affecting left non-dominant side; N39.0 Urinary tract infection, site not specified; E87.0 Hyperosmolality and hypernatremia; N17.9 Acute kidney failure, unspecified; I46.9 Cardiac arrest, cause unspecified; I69.391 Dysphagia following cerebral infarction; R13.19 Other dysphagia; E86.0 Dehydration; G30.9 Alzheimer's disease, unspecified; F02.80 Dementia in other diseases classified elsewhere, unspecified severity, without behavioral disturbance, psychotic disturbance, mood disturbance, and anxiety; E11.8 Type 2 diabetes mellitus with unspecified complications; I25.10 Atherosclerotic heart disease of native coronary artery without angina pectoris; Z66 Do not resuscitate; F01.50 Vascular dementia, unspecified severity, without behavioral disturbance, psychotic disturbance, mood disturbance, and anxiety; I10 Essential (primary) hypertension; E78.5 Hyperlipidemia, unspecified; E78.00 Pure hypercholesterolemia, unspecified; J45.909 Unspecified asthma, uncomplicated; M19.90 Unspecified osteoarthritis, unspecified site; Z87.01 Personal history of pneumonia (recurrent); Z79.84 Long term (current) use of oral hypoglycemic drugs; Z87.891 Personal history of nicotine dependence; Z88.0 Allergy status to penicillin